=== PATIENT | male | born 1945 | race Caucasian/White ===

== ENCOUNTER 2016-09-20 11:21 | Inpatient (IN) | payer OTHER ==
[~2016-09-20] VITALS: Ht 185.4 cm; Wt 101.8 kg
[~2016-09-20 11:21] MED LIST: BENZ100C6 PO; DULO-24 PO; OXAP600T2 PO; TAMS0.4C59 PO
[2016-09-20] MEDS ORDERED: SODIUM CHLORIDE 0.9% 1000ML 1,000 ML IV STA (12:23)
[2016-09-20] MEDS ORDERED: SODIUM CHLORIDE 0.9% 1000ML 500 ML IV STA (12:23)
--- NOTE | 2016-09-20 12:31 | EMERGENCY ROOM VISIT NOTE ---
History Report prepared by Ricki: Griselda Connelly Under the Supervision of: Dr. Nick Bunn M.D. First contact with patient: 12:13 Chief Complaint: REFERRED BY DOCTOR Stated Complaint: FALLING, CONFUSION-SENT BY 'S OFFICE History of Present Illness The patient is a 70 year old male who presents to the Emergency Room with complaints of worsening debilitation over the past two weeks. Per nursing notes , the patient was referred to the emergency department by his PCP. Per the patient's , the patient was evaluated at his PCP's office and had a urinalysis done. She reports that the patient was referred to the emergency department for rule out of stroke or cardiac event. The patient reports an increased number of falls and confusion over the last two weeks. He notes that he has hit his head during the falls and additionally injured his right hand and right knee. The patient notes a change in strength. He reports that his tetanus status is up to date. The patient notes a history of Parkinson's Disease. He denies any change in medication. The patient's reports that over the last two weeks the patient has had a decrease in response, noting that at times the patient does not respond quickly, or sometimes not at all. Source of History: patient, spouse/significant other () Onset: two weeks Position: other (global) Quality: other (debilitations) Timing: worsening Associated Symptoms: + neck pain Note: Associated Symptoms: Increased falls and confusion Review of Systems See HPI for pertinent positives & negatives. A total of 10 systems reviewed and were otherwise negative. Past Medical & Surgical Medical Problems: (1) Ataxia (2) BPH w urinary obs/LUTS (3) Depression with anxiety (4) Dyslipidemia (5) GERD (gastroesophageal reflux disease) (6) History of pneumonia (7) Kidney stone (8) Malignant melanoma (9) Melanoma (10) Metabolic syndrome (11) Parkinson disease (12) Parkinsons disease (13) Pre-diabetes (14) RBBB Surgical Problems: (1) H/O cystoscopy (2) H/O hernia repair (3) H/O hernia repair (4) S/p lumbar hemilaminectomy Family History Cancer Diabetes mellitus Social History Smoking Status: Never Smoker Alcohol Use: occasionally Drug Use: none Marital Status: Housing Status: lives with significant other Current/Historical Medications Scheduled Aspirin (Aspirin Ec), 81 MG PO DAILY Budesonide (Rhinocort Aqua), 2 SPRAYS JOSE DAILY Carbidopa/Levodopa (Sinemet 25MG/100MG), 2 TAB PO TID Carbidopa/Levodopa (Sinemet 25MG/100MG), 1 TAB PO HS Clobetasol Propionate (Temovate), 1 APPLN TOP BID Clonazepam (Klonopin), 0.5 MG PO HS Donepezil Hydrochloride (Aricept), 2 TAB PO HS Finasteride (Proscar), 5 MG PO DAILY Ibuprofen (Ibuprofen), 200 MG PO HS Lisinopril (Lisinopril), 1 TAB PO DAILY Omeprazole (Prilosec), 40 MG PO DAILY Pimavanserin Tartrate (Nuplazid), 2 TAB PO DAILY Simvastatin (Zocor), 10 MG PO HS Venlafaxine Hcl (Effexor Xr), 1 CAP PO QAM Scheduled PRN Buspirone Hcl (Buspirone Hcl), 1 TAB PO BID PRN for Anxiety Allergies Coded Allergies: Oxybutynin (Verified Allergy, Unknown, HALLUCINATIONS,CHANGE IN MENTATION , 09/20/16) Tramadol (Verified Allergy, Unknown, SHORTNESS OF BREATH, 09/20/16) Physical Exam Vital Signs Date Time Temp Pulse Resp B/P Pulse Ox O2 Delivery O2 Flow Rate FiO2 09/20/16 15:10 63 14 159/96 99 09/20/16 13:21 60 09/20/16 13:17 60 16 143/86 98 09/20/16 12:20 67 09/20/16 11:38 36.4 89 20 115/76 91 Room Air Physical Exam GENERAL: Patient is in no acute distress. HEENT: No acute trauma, normocephalic atraumatic, no scalp hematoma, mucous membranes moist, no nasal congestion, no scleral icterus. NECK: No stridor, no adenopathy, no meningismus, trachea is midline. No posterior c-spine tenderness LUNGS: Clear to auscultation bilaterally, no wheeze, no rhonchi, breath sounds equal. HEART: Without murmurs gallops or rubs, regular rate and rhythm. ABDOMEN: Soft, nontender, bowel sounds positive, no hernias, no peritonitis. EXTREMITIES: Abrasions to anterior right knee without evidence of underlying fracture, abrasion to the right dorsal hand mostly in the area of the MCPs along the ulnar aspect, some edema noted, no gross deformity. NEUROLOGIC: Answers simple questions, does seem slightly confused at times, awake and alert, no focal motor deficits, no pronator drift SKIN: No rash, no jaundice, no diaphoresis. Medical Decision & Procedures ER Provider Diagnostic Interpretation: Radiology results as stated below per my review and radiologist interpretation: CT OF THE HEAD WITHOUT CONTRAST CLINICAL HISTORY: Altered mental status. Weakness. COMPARISON STUDY: Head CT May 24, 2012 and MRI of the brain May 25, 2012. CT DOSE: 614.27 mGy.cm TECHNIQUE: Helical axial images of the head were obtained without IV contrast. Automated exposure control was utilized for the study. FINDINGS: No acute intracranial hemorrhage, midline shift or mass affect is present. Ventricular system is unremarkable. Basilar cisterns are patent. There are no extra-axial collections. There are several age indeterminate lacunar infarcts within the right cerebellar hemisphere which are new since CT of May 24, 2012. There are no findings to suggest acute dural sinus thrombosis or acute territorial infarct. There is moderate mucosal thickening of the ethmoid sinuses and mild mucosal thickening of the left maxillary sinus. There is no calvarial fracture. IMPRESSION: 1. No acute intracranial hemorrhage or mass effect. 2. Several age indeterminate lacunar infarcts within the right cerebellar hemisphere which are new since head CT of May 24, 2012. Electronically signed by: Ian Fierro M.D. 09/20/2016 1:04 PM Dictated Date/Time: 09/20/2016 12:59 PM RIGHT HAND MIN 3 VIEWS ROUTINE CLINICAL HISTORY: Right hand pain following fall. COMPARISON: None FINDINGS: Alignment of the right hand is anatomic. No acute fracture is identified. There is mild to moderate arthritis within multiple articulations of the right hand. Carpal bones appear intact. IMPRESSION: No acute fracture or dislocation of the right hand. Electronically signed by: Ian Fierro M.D. 09/20/2016 1:57 PM Dictated Date/Time: 09/20/2016 1:56 PM CHEST ONE VIEW PORTABLE HISTORY: EVALUATE ALTERED MENTAL STATUS/WEAKNESS COMPARISON: None. FINDINGS: The heart is enlarged. The lungs are clear. No pleural effusions. No pneumothorax. IMPRESSION: Mild cardiomegaly. Electronically signed by: Ephraim Winter M.D. 09/20/2016 1:52 PM Dictated Date/Time: 09/20/2016 1:51 PM Laboratory Results 09/20/16 11:57 Red Blood Count 5.08, Mean Corpuscular Volume 95.1, Mean Corpuscular Hemoglobin 30.7, Mean Corpuscular Hemoglobin Concent 32.3, Mean Platelet Volume 10.1, Neutrophils (%) (Auto) 60.2, Lymphocytes (%) (Auto) 24.5, Monocytes (%) (Auto) 8.4, Eosinophils (%) (Auto) 5.4, Basophils (%) (Auto) 1.1, Neutrophils # (Auto) 4.32, Lymphocytes # (Auto) 1.76, Monocytes # (Auto) 0.60, Eosinophils # (Auto) 0.39, Basophils # (Auto) 0.08 09/20/16 11:57 Test 09/20/16 11:57 09/20/16 13:08 White Blood Count 7.18 K/uL (4.8-10.8) Red Blood Count 5.08 M/uL (4.7-6.1) Hemoglobin 15.6 g/dL (14.0-18.0) Hematocrit 48.3 % (42-52) Mean Corpuscular Volume 95.1 fL (80-100) Mean Corpuscular Hemoglobin 30.7 pg (25-34) Mean Corpuscular Hemoglobin Concent 32.3 g/dl (32-36) Platelet Count 203 K/uL (130-400) Mean Platelet Volume 10.1 fL (7.4-10.4) Neutrophils (%) (Auto) 60.2 % Lymphocytes (%) (Auto) 24.5 % Monocytes (%) (Auto) 8.4 % Eosinophils (%) (Auto) 5.4 % Basophils (%) (Auto) 1.1 % Neutrophils # (Auto) 4.32 K/uL (1.4-6.5) Lymphocytes # (Auto) 1.76 K/uL (1.2-3.4) Monocytes # (Auto) 0.60 K/uL (0.11-0.59) Eosinophils # (Auto) 0.39 K/uL (0-0.5) Basophils # (Auto) 0.08 K/uL (0-0.2) RDW Standard Deviation 42.4 fL (36.4-46.3) RDW Coefficient of Variation 12.2 % (11.5-14.5) Immature Granulocyte % (Auto) 0.4 % Immature Granulocyte # (Auto) 0.03 K/uL (0.00-0.02) Anion Gap 4.0 mmol/L (3-11) Est Creatinine Clear Calc Drug Dose 94.9 ml/min Estimated GFR () 96.7 Estimated GFR (Non- 83.5 BUN/Creatinine Ratio 26.7 (10-20) Calcium Level 8.4 mg/dl (8.5-10.1) Magnesium Level 2.5 mg/dl (1.8-2.4) Total Bilirubin 0.5 mg/dl (0.2-1) Aspartate Amino Transf (AST/SGOT) 19 U/L (15-37) Alanine Aminotransferase (ALT/SGPT) 10 U/L (12-78) Alkaline Phosphatase 90 U/L (45-117) Total Creatine Kinase 129 U/L (39-308) Troponin I < 0.015 ng/ml (0-0.045) Total Protein 7.2 gm/dl (6.4-8.2) Albumin 3.8 gm/dl (3.4-5.0) Globulin 3.4 gm/dl (2.5-4.0) Albumin/Globulin Ratio 1.1 (0.9-2) Thyroid Stimulating Hormone (TSH) 1.510 uIu/ml (0.300-4.500) Urine Color YELLOW Urine Appearance CLEAR (CLEAR) Urine pH 5.0 (4.5-7.5) Urine Specific [place] 1.020 (1.000-1.030) Urine Protein NEG (NEG) Urine Glucose (UA) NEG (NEG) Urine Ketones TRACE (NEG) Urine Occult Blood NEG (NEG) Urine Nitrite NEG (NEG) Urine Bilirubin NEG (NEG) Urine Urobilinogen NEG (NEG) Urine Leukocyte Esterase NEG (NEG) Laboratory results reviewed by me. Medications Administered Medications (Trade) Dose Ordered Sig/Rosa Route Start Time Stop Time Status Last Admin Dose Admin Sodium Chloride 500 ml @ 999 mls/hr Q31M STAT IV 09/20/16 12:23 09/20/16 12:53 DC 09/20/16 12:57 999 MLS/HR Sodium Chloride (Nss 1000ml) 1,000 ml @ 200 mls/hr Q5H STAT IV 09/20/16 12:23 09/20/16 17:22 09/20/16 12:57 200 MLS/HR ECG Indication: weakness Rate (beats per minute): 61 Rhythm: normal sinus Findings: RBBB, no acute ischemic change ED Course 1218: The patient was evaluated in room B3B. A complete history and physical exam was performed. 1223: Ordered Sodium Chloride 1000 ml @ 200 mls/hr IV, Sodium Chloride 500 ml @ 999 mls/hr IV. 1359: I reevaluated the patient and he is resting comfortably. I discussed the exam findings with him and his family and I discussed the treatment plan. They verbalized complete understanding and agreement. The patient will be evaluated for further treatment. 1406: I discussed the patients case with Kristopher Navarro PA-C. She is going to evaluate the patient for further treatment. Medical Decision The patient is a 70 year old male who presents to the ED with complaints of worsening debilitation. Differential diagnoses considered include stroke, medication reaction, worsening Parkinson's disease, electrolyte imbalance, anemia, [place], UTI. There is no leukocytosis or concerning anemia. No significant electrolyte abnormality, kidney failure or hepatitis. The patient appears to be in a euthyroid state. Chest x-ray does not show pneumonia or CHF. Right hand film shows no obvious fracture. Brain CT shows no acute bleed or mass effect-small areas of infarct were noted but these were thought old although they were new as compared to a CT from a few years ago. EKG shows a normal sinus rhythm, no acute ischemia. Cardiac enzyme testing 1 is not consistent with acute cardiac injury. Urinalysis does not show infection. The patient received IV saline, I did talk with him and his family. Given the frequent falls, given the confusion, given the findings on CT indicating CVA, admission/observation was felt warranted. Further workup for stroke is indicated. Further workup for the confusion and falling is indicated. I did contact case management. The on-call hospitalist was consulted. Medication Reconciliation: I attest that I have personally reviewed the patient' s current medication list. Blood Pressure Screening: Patient was found to have an elevated blood pressure and was referred to their primary doctor for recheck and further treatment. Consults Time Called: 1400 Consulting Physician: Kristopher Navarro PA-C Returned Call: 1406 I discussed the patients case with Kristopher Navarro PA-C. She is going to evaluate the patient for further treatment. Impression Primary Impression: Change in mental status Additional Impressions: Confusion CVA (cerebral vascular accident) Scribe Attestation The scribe's documentation has been prepared under my direction and personally reviewed by me in its entirety. I confirm that the note above accurately reflects all work, treatment, procedures, and medical decision making performed by me. Departure Information Dispostion Being Evaluated By Hospitalist Referrals Jae Andrade MD (PCP) Stroke History Stroke t-PA Criteria Reviewed Does NOT meet criteria for t-PA Reason t-PA Not Given Treatment not indicated Problem Qualifiers
[2016-09-20 12:37] LABS: BASO % 1.1 %; BASO ABS # 0.08 K/uL (0-0.2); COMPLETE YES; EOS % 5.4 %; HEMATOCRIT 48.3 % (42-52); IG% 0.4 %; LYMPH % 24.5 %; LYMPH ABS # 1.76 K/uL (1.2-3.4); MEAN CELL VOLUME 95.1 fL (80-100); MEAN CORPUSCULAR HEMOGLOBIN 30.7 pg (25-34); MEAN CORPUSCULAR HGB CONC 32.3 g/dl (32-36); MEAN PLATELET VOLUME 10.1 fL (7.4-10.4); MONO % 8.4 %; NEUT % 60.2 %; PLATELET COUNT 203 K/uL (130-400); RED BLOOD COUNT 5.08 M/uL (4.7-6.1); WHITE BLOOD COUNT 7.18 K/uL (4.8-10.8)
[2016-09-20 12:46] LABS: ALT/SGPT 10 U/L (12-78); AST/SGOT 19 U/L (15-37); BLOOD UREA NITROGEN 25 mg/dl (7-18); BUN/CREATININE RATIO 26.7 (10-20); CALCIUM 8.4 mg/dl (8.5-10.1); CARBON DIOXIDE 33 mmol/L (21-32); CHLORIDE 107 mmol/L (98-107); CREATININE 0.93 mg/dl (0.60-1.40); GLUCOSE 90 mg/dl (70-99); MAGNESIUM 2.5 mg/dl (1.8-2.4); SODIUM 144 mmol/L (136-145)
[2016-09-20 12:57] LABS: ALB/GLOB RATIO 1.1 (0.9-2); ALKALINE PHOSPHATASE 90 U/L (45-117)
--- NOTE | 2016-09-20 13:05 | DIAGNOSTIC IMAGING REPORT ---
CT OF THE HEAD WITHOUT CONTRAST CLINICAL HISTORY: Altered mental status. Weakness. COMPARISON STUDY: Head CT May 24, 2012 and MRI of the brain May 25, 2012. CT DOSE: 614.27 mGy.cm TECHNIQUE: Helical axial images of the head were obtained without IV contrast. Automated exposure control was utilized for the study. FINDINGS: No acute intracranial hemorrhage, midline shift or mass affect is present. Ventricular system is unremarkable. Basilar cisterns are patent. There are no extra-axial collections. There are several age indeterminate lacunar infarcts within the right cerebellar hemisphere which are new since CT of May 24, 2012. There are no findings to suggest acute dural sinus thrombosis or acute territorial infarct. There is moderate mucosal thickening of the ethmoid sinuses and mild mucosal thickening of the left maxillary sinus. There is no calvarial fracture. IMPRESSION: 1. No acute intracranial hemorrhage or mass effect. 2. Several age indeterminate lacunar infarcts within the right cerebellar hemisphere which are new since head CT of May 24, 2012. Electronically signed by: Ian Fierro M.D. 09/20/2016 1:04 PM Dictated Date/Time: 09/20/2016 12:59 PM
[2016-09-20 13:38] LABS: URINE APPEARANCE CLEAR (CLEAR); URINE BILIRUBIN NEG (NEG); URINE COLOR YELLOW; URINE NITRITE NEG (NEG); UROBILINOGEN NEG (NEG); ZZUR CULT IF INDIC CLEAN CATCH NO
[2016-09-20 13:42] LABS: MANUAL MICROSCOPIC REQUIRED? NO; REVIEW REQ? NO
[2016-09-20] MEDS ORDERED: CLOB-77 TOP (13:44)
[2016-09-20] MEDS ORDERED: RHNAQIN NAE (13:48)
[2016-09-20] MEDS ORDERED: CLR10 PO (13:49)
--- NOTE | 2016-09-20 13:53 | DIAGNOSTIC IMAGING REPORT ---
CHEST ONE VIEW PORTABLE HISTORY: EVALUATE ALTERED MENTAL STATUS/WEAKNESS COMPARISON: None. FINDINGS: The heart is enlarged. The lungs are clear. No pleural effusions. No pneumothorax. IMPRESSION: Mild cardiomegaly. Electronically signed by: Ephraim Winter M.D. 09/20/2016 1:52 PM Dictated Date/Time: 09/20/2016 1:51 PM
--- NOTE | 2016-09-20 13:58 | DIAGNOSTIC IMAGING REPORT ---
RIGHT HAND MIN 3 VIEWS ROUTINE CLINICAL HISTORY: Right hand pain following fall. COMPARISON: None FINDINGS: Alignment of the right hand is anatomic. No acute fracture is identified. There is mild to moderate arthritis within multiple articulations of the right hand. Carpal bones appear intact. IMPRESSION: No acute fracture or dislocation of the right hand. Electronically signed by: Ian Fierro M.D. 09/20/2016 1:57 PM Dictated Date/Time: 09/20/2016 1:56 PM
[2016-09-20] MEDS ORDERED: ONDANSETRON INJ 2 MG/ML 2 ML VIAL IV PRN (15:15)
[2016-09-20] MEDS ORDERED: ACETAMINOPHEN 325 MG TAB PO PRN (15:15)
[2016-09-20] MEDS ORDERED: PHARMACIST DISCHARGE MED REC CONSULT PRN (15:15)
--- NOTE | 2016-09-20 16:00 | History and Physical ---
History & Physical Date & Time of Service: September 20, 2016 at 15:15 Chief Complaint: Falling, Confusion-Sent By 's Office Primary Care Physician: Jae Andrade MD History of Present Illness Source: patient, family (daughter and at bedside), clinic records This is a 70 year old male with PMH of dementia, Parkinson's disease, prediabetes, HTN, HL, and other problems listed below who is brought to the ED by his family for balance difficulty and altered mental status. Hx unobtainable from the patient due to AMS. Per , patient was at baseline until 2 weeks ago when he developed increased balance difficulty, worsening word finding difficulty and nonsensical speech. Has shuffling gait at baseline, supposed to use walker but refuses. 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 Second fall was witnessed by in bathroom, was turning, crossed one leg over the other, tripped, went down on left side. Third fall was 2 days ago, unwitnessed, patient had wandered to neighbor's driveway and was found down on his side by a passerby. No known head trauma. Has not complained of EASON or muscle/ joint pain. Has abrasions on right hand and right knee. Patient can state his name but otherwise not able to answer orientation questions appropriately. Family states at baseline he has intermittent word finding difficulty and nonsensical speech but for past 2 weeks is worse. Pt has chronic tremor and masked facies. Has urinary frequency and incontinence which is worse than baseline for a few weeks. Family denies fever, chills, cough, URI symptoms, slurred speech, unilateral facial droop, swallowing difficulty, focal weakness or numbness, LOC , complaints of dizziness, complaints of chest pain, SOB, abdominal pain, N/V, diarrhea. No recent hallucinations. Eating normally and taking in meds. Last medication change was Sinemet dose increase late July 2016. No hx TIA or CVA. Past Medical/Surgical History Medical Problems: (1) BPH w urinary obs/LUTS Status: Chronic (2) Depression with anxiety Status: Chronic (3) Dyslipidemia Status: Chronic (4) GERD (gastroesophageal reflux disease) Status: Chronic (5) History of pneumonia Status: Chronic (6) Kidney stone Status: Resolved (7) Malignant melanoma Permanent Comment: left ear, s/p surgery Status: Chronic (8) Melanoma Status: Resolved (9) Metabolic syndrome Status: Chronic (10) Parkinson disease Status: Chronic (11) Parkinsons disease Status: Chronic (12) Pre-diabetes Permanent Comment: diet controlled Status: Chronic (13) RBBB Status: Chronic Surgical Problems: (1) H/O cystoscopy Status: Chronic (2) H/O hernia repair Status: Resolved (3) H/O hernia repair Status: Chronic (4) S/p lumbar hemilaminectomy Status: Chronic Family History Cancer Diabetes mellitus Social History Smoking Status: Former Smoker (former once a week cigar smoker) Alcohol Use: none Marital Status: Housing status: lives with significant other Immunizations History of Influenza Vaccine: Yes History of Tetanus Vaccine?: Unknown History of Pneumococcal: Yes History of Hepatitis B Vaccine: Unknown Multi-Drug Resistant Organisms History of MDRO: No Allergies Coded Allergies: Oxybutynin (Verified Allergy, Unknown, HALLUCINATIONS,CHANGE IN MENTATION , 09/20/16) Tramadol (Verified Allergy, Unknown, SHORTNESS OF BREATH, 09/20/16) Home Medications Scheduled Aspirin (Aspirin Ec), 81 MG PO DAILY Budesonide (Rhinocort Aqua), 2 SPRAYS JOSE DAILY Carbidopa/Levodopa (Sinemet 25MG/100MG), 2 TAB PO TID Carbidopa/Levodopa (Sinemet 25MG/100MG), 1 TAB PO HS Clobetasol Propionate (Temovate), 1 APPLN TOP BID Clonazepam (Klonopin), 0.5 MG PO HS Donepezil Hydrochloride (Aricept), 2 TAB PO HS Finasteride (Proscar), 5 MG PO DAILY Ibuprofen (Ibuprofen), 200 MG PO HS Lisinopril (Lisinopril), 1 TAB PO DAILY Omeprazole (Prilosec), 40 MG PO DAILY Pimavanserin Tartrate (Nuplazid), 2 TAB PO DAILY Simvastatin (Zocor), 10 MG PO HS Venlafaxine Hcl (Effexor Xr), 1 CAP PO QAM Scheduled PRN Buspirone Hcl (Buspirone Hcl), 1 TAB PO BID PRN for Anxiety Review of Systems Full ROS could not be obtained from patient due to AMS. Physical Exam Vital Signs Date Time Temp Pulse Resp B/P Pulse Ox O2 Delivery O2 Flow Rate FiO2 5/31/17 15:10 63 14 159/96 99 09/20/16 13:21 60 09/20/16 13:17 60 16 143/86 98 09/20/16 12:20 67 09/20/16 11:38 36.4 89 20 115/76 91 Room Air General Appearance: + pertinent finding Head: normocephalic, atraumatic Eyes: normal inspection, PERRL, EOMI, sclerae normal ENT: hearing grossly normal, pharynx normal Neck: supple, trachea midline Respiratory/Chest: lungs clear, normal breath sounds, no respiratory distress, no accessory muscle use Cardiovascular: regular rate, rhythm, no murmur Abdomen/GI: normal bowel sounds, non tender, soft Extremities/Musculoskelatal: no calf tenderness, no pedal edema, + pertinent finding (left hand contracted) Neurologic/Psych: alert, normal mood/affect, + pertinent finding (able to state his name, unable to name family members at bedside, disoriented to date ( 1958), unable to answer location, unable to describe recent events. answers most questions nonsensically. some resting tremor on the right arm. follows commands slowly with repeated prompting. masked facies but no unilateral facial droop. even smile and eyebrow raise. no dysarthria. no focal motor deficit of extremities. slowly able to do finger to nose testing. ) Skin: normal color, warm/dry, + pertinent finding (right hand abrasions) Diagnostics Laboratory Results Results Past 24 Hours Test 09/20/16 11:57 09/20/16 13:08 09/20/16 15:08 Range/Units White Blood Count 7.18 4.8-10.8 K/uL Red Blood Count 5.08 4.7-6.1 M/uL Hemoglobin 15.6 14.0-18.0 g/dL Hematocrit 48.3 42-52 % Mean Corpuscular Volume 95.1 80-100 fL Mean Corpuscular Hemoglobin 30.7 25-34 pg Mean Corpuscular Hemoglobin Concent 32.3 32-36 g/dl Platelet Count 203 130-400 K/uL Mean Platelet Volume 10.1 7.4-10.4 fL Neutrophils (%) (Auto) 60.2 % Lymphocytes (%) (Auto) 24.5 % Monocytes (%) (Auto) 8.4 % Eosinophils (%) (Auto) 5.4 % Basophils (%) (Auto) 1.1 % Neutrophils # (Auto) 4.32 1.4-6.5 K/uL Lymphocytes # (Auto) 1.76 1.2-3.4 K/uL Monocytes # (Auto) 0.60 0.11-0.59 K/uL Eosinophils # (Auto) 0.39 0-0.5 K/uL Basophils # (Auto) 0.08 0-0.2 K/uL RDW Standard Deviation 42.4 36.4-46.3 fL RDW Coefficient of Variation 12.2 11.5-14.5 % Immature Granulocyte % (Auto) 0.4 % Immature Granulocyte # (Auto) 0.03 0.00-0.02 K/uL Sodium Level 144 136-145 mmol/L Potassium Level 4.0 3.5-5.1 mmol/L Chloride Level 107 98-107 mmol/L Carbon Dioxide Level 33 21-32 mmol/L Anion Gap 4.0 3-11 mmol/L Blood Urea Nitrogen 25 7-18 mg/dl Creatinine 0.93 0.60-1.40 mg/dl Est Creatinine Clear Calc Drug Dose 94.9 ml/min Estimated GFR () 96.7 Estimated GFR (Non- 83.5 BUN/Creatinine Ratio 26.7 10-20 Random Glucose 90 70-99 mg/dl Calcium Level 8.4 8.5-10.1 mg/dl Magnesium Level 2.5 1.8-2.4 mg/dl Total Bilirubin 0.5 0.2-1 mg/dl Aspartate Amino Transf (AST/SGOT) 19 15-37 U/L Alanine Aminotransferase (ALT/SGPT) 10 12-78 U/L Alkaline Phosphatase 90 45-117 U/L Total Creatine Kinase 129 39-308 U/L Troponin I < 0.015 0-0.045 ng/ml Total Protein 7.2 6.4-8.2 gm/dl Albumin 3.8 3.4-5.0 gm/dl Globulin 3.4 2.5-4.0 gm/dl Albumin/Globulin Ratio 1.1 0.9-2 Thyroid Stimulating Hormone (TSH) 1.510 0.300-4.500 uIu/ml Urine Color YELLOW Urine Appearance CLEAR CLEAR Urine pH 5.0 4.5-7.5 Urine Specific [place] 1.020 1.000-1.030 Urine Protein NEG NEG Urine Glucose (UA) NEG NEG Urine Ketones TRACE NEG Urine Occult Blood NEG NEG Urine Nitrite NEG NEG Urine Bilirubin NEG NEG Urine Urobilinogen NEG NEG Urine Leukocyte Esterase NEG NEG Diagnostic Radiology CT OF THE HEAD WITHOUT CONTRAST CLINICAL HISTORY: Altered mental status. Weakness. COMPARISON STUDY: Head CT May 24, 2012 and MRI of the brain May 25, 2012. CT DOSE: 614.27 mGy.cm TECHNIQUE: Helical axial images of the head were obtained without IV contrast. Automated exposure control was utilized for the study. FINDINGS: No acute intracranial hemorrhage, midline shift or mass affect is present. Ventricular system is unremarkable. Basilar cisterns are patent. There are no extra-axial collections. There are several age indeterminate lacunar infarcts within the right cerebellar hemisphere which are new since CT of May 24, 2012. There are no findings to suggest acute dural sinus thrombosis or acute territorial infarct. There is moderate mucosal thickening of the ethmoid sinuses and mild mucosal thickening of the left maxillary sinus. There is no calvarial fracture. IMPRESSION: 1. No acute intracranial hemorrhage or mass effect. 2. Several age indeterminate lacunar infarcts within the right cerebellar hemisphere which are new since head CT of May 24, 2012. RIGHT HAND MIN 3 VIEWS ROUTINE CLINICAL HISTORY: Right hand pain following fall. COMPARISON: None FINDINGS: Alignment of the right hand is anatomic. No acute fracture is identified. There is mild to moderate arthritis within multiple articulations of the right hand. Carpal bones appear intact. IMPRESSION: No acute fracture or dislocation of the right hand. CHEST ONE VIEW PORTABLE HISTORY: EVALUATE ALTERED MENTAL STATUS/WEAKNESS COMPARISON: None. FINDINGS: The heart is enlarged. The lungs are clear. No pleural effusions. No pneumothorax. IMPRESSION: Mild cardiomegaly. EKG NSR, RBBB, T wave abnormality, consider inferior ischemia, when compared to prior EKG no significant change was found as per cardiology read Impression Assessment and Plan ALTERED MENTAL STATUS/ BALANCE DIFFICULTY Rule out acute CVA; risk factors- HTN, HL, prediabetes Onset 2 weeks ago; does not meet criteria for tPA No source of infection identified- CXR- no infiltrate, UA does not appear infected CT head- no acute intracranial hemorrhage or mass effect, several age indeterminate lacunar infarcts within the right cerebellar hemisphere which are new since head CT of May 24, 2012. Check MRI brain, MRA head and neck, echo with bubble study Monitor in telemetry to r/o arrhythmia Continue aspirin, statin Add Plavix Neuro checks PT, OT, speech evaluations Consult neurology; case discussed w/ Dr. Guerra; appreciate input PARKINSON'S DISEASE Continue Sinemet Follows with Dr. Guerra; neuro consulted HX OF PSYCHOSIS Continue Nuplazid Follows with [facility] for mental health HYPERTENSION BP is stable Continue lisinopril PREDIABETES Diet controlled per records Diabetic diet Check A1c DEMENTIA Continue Aricept DEPRESSION/ ANXIETY Continue Klonopin, Buspar, Effexor DYSLIPIDEMIA Continue statin BPH Continue finasteride DVT PROPHYLAXIS Lovenox SQ CODE STATUS DNR per my discussion with the patient's . DISPOSITION Lives with Consult delinquency prevention social worker for discharge planning Follows with Dr. Andrade for primary care Patient seen in collaboration with Dr. Rodríguez. Please see her addendum. ATTENDING ADDENDUM: I have seen and examined the patient and agree with the assessment and plan above. However, I would add R hand trauma with possible superficial cellulitis as an additional problem. I tried to contact his by phone tonight to obtain a better history but the number was disconnected. There are abrasions on the hand and a fresh one on the R knee indicating a recent trauma. There is redness and swelling on the ulnar side of the hand including the 4th and 5th metacarpals and the MCP joints. The patient is able to open and close his fist and denies any pain. The appearance is consistent with a nonpurulent cellulitis with with erythema so will cover for strep with Cefazolin IV. Also consulted Ortho to evaluate. He is not confused or delirious; baseline MS is difficult to appreciate. There is alot of cogwheel rigidity appreciated on exam. This appears to be consistent with a worsening of his PD as a possible cause of the MS changes and ambulation difficulty. Cont workup and Neuro eval as above. Marcos, DO Level of Care Telemetry Resuscitation Status DO NOT RESUSCITATE VTE Prophylaxis VTE Risk Assessment Done? Y/N: Yes Risk Level: Moderate Given or contraindicated: Enoxaparin (Lovenox)SQ
[2016-09-20 16:05] VITALS: BP 160/97; PULSE 62; TEMP 36.5; O2SAT 96; Ht 185.4 cm; Wt 101.8 kg
[2016-09-20] MEDS ORDERED: CLOPIDOGREL BISULFATE 75 MG TAB PO ONE (17:00)
[2016-09-20 17:16] LABS: PROTHROMBIN TIME (PATIENT) 11.2 SECONDS (9.0-12.0)
[2016-09-20] MEDS: ENOXAPARIN 40 MG/0.4 ML SYR SQ SCH (18:42)
[2016-09-20 19:53] VITALS: BP 174/96; PULSE 62; TEMP 36.5; O2SAT 97
[2016-09-20 20:00] VITALS: O2SAT 97
[2016-09-20] MEDS: CARBIDOPA/LEVODOPA 25/100MG TAB PO SCH ×2 (20:38)
[2016-09-20] MEDS: CLONAZEPAM 0.5 MG TAB PO SCH (20:43)
[2016-09-20] MEDS ORDERED: CLOBETASOL PROPIONATE 0.05% EXT SCH (21:00)
[2016-09-20] MEDS: CEFAZOLIN IV 1,000 MG in DEXTROSE 5% 50ML 50 ML IV SCH (21:13)
[2016-09-20 23:29] VITALS: BP 167/85; PULSE 66; TEMP 36.8; O2SAT 95
[2016-09-21] VITALS (8 sets, daily range): BP systolic 106–172; BP diastolic 61–94; PULSE 62–84; TEMP 36.2–36.8; O2SAT 93–97
[2016-09-21] MEDS: CEFAZOLIN IV 1,000 MG in DEXTROSE 5% 50ML 50 ML IV SCH ×3 (04:58→20:17)
[2016-09-21 04:59] LABS: ESTIMATED AVERAGE GLUCOSE 134 mg/dl; HA1C FLAG Normal (Normal)
[2016-09-21 07:22] LABS: BASO % 0.9 %; BASO ABS # 0.07 K/uL (0-0.2); COMPLETE YES; EOS % 4.8 %; HEMATOCRIT 46.6 % (42-52); IG% 0.3 %; LYMPH % 24.3 %; LYMPH ABS # 1.84 K/uL (1.2-3.4); MEAN CELL VOLUME 94.9 fL (80-100); MEAN CORPUSCULAR HEMOGLOBIN 32.2 pg (25-34); MEAN CORPUSCULAR HGB CONC 33.9 g/dl (32-36); MEAN PLATELET VOLUME 9.9 fL (7.4-10.4); MONO % 8.6 %; NEUT % 61.1 %; PLATELET COUNT 179 K/uL (130-400); RED BLOOD COUNT 4.91 M/uL (4.7-6.1); WHITE BLOOD COUNT 7.57 K/uL (4.8-10.8)
[2016-09-21 08:00] LABS: BUN/CREATININE RATIO 25.9 (10-20); CALCIUM 8.4 mg/dl (8.5-10.1); CREATININE 0.89 mg/dl (0.60-1.40); POTASSIUM 3.8 mmol/L (3.5-5.1)
[2016-09-21 08:03] LABS: C-REACTIVE PROTEIN 0.42 mg/dl (0-0.29); CHOLESTEROL/HDL RATIO 2.7
[2016-09-21] MEDS: [UNRECOGNIZED DRUG - REMARK] SCH ×4 (08:17→23:05)
[2016-09-21] MEDS: BUDESONIDE AQ (RHINOCORT AQ) NASAL SPRAY 32 MCG NAE SCH (08:18)
[2016-09-21] MEDS: CLOPIDOGREL BISULFATE 75 MG TAB PO SCH (08:18)
[2016-09-21] MEDS: VENLAFAXINE HCL XR 150 MG CAPXR PO SCH (08:18)
[2016-09-21] MEDS: ASPIRIN 81 MG ECTAB PO SCH (08:18)
[2016-09-21] MEDS: PANTOprazole SOD 40 MG TAB PO SCH (08:19)
[2016-09-21] MEDS: FINASTERIDE 5 MG TAB PO SCH (08:19)
[2016-09-21] MEDS: LISINOPRIL 2.5 MG TAB PO SCH (08:20)
[2016-09-21] MEDS: CARBIDOPA/LEVODOPA 25/100MG TAB PO SCH ×3 (08:20→20:00)
--- NOTE | 2016-09-21 08:26 | CONSULTATION REPORT ---
DATE OF CONSULTATION: 09/21/2016 DATE OF CONSULTATION: 09/21/2016. HISTORY OF PRESENT ILLNESS: The patient is a 70-year-old male with a history of dementia, Parkinson's disease, and other medical conditions as listed in the H&P who has suffered 3 falls recently. After the last fall, he was found outside by passerby, brought to the ED for evaluation. Per the family he is having increasing difficulty with balance and ambulation as well as altered mental status. He is found to have pain, swelling, and abrasions about the right hand. X-rays of the hand were read as negative and orthopedics consult was asked for. Currently, the patient is resting in his bed with his and daughter present. They confirmed recent falls with several of them causing him to land on his right side. He is lying in bed, appears comfortable. He is minimally responsive and is very slow to answer questions. He has multiple abrasions over the dorsum of the right ulnar-sided hand in the region of the 3rd, 4th and 5th fingers as well as dorsal 3rd, 4th and 5th metacarpal hand region. At my encouragement, he is able to make a fist, extend the fingers. He does not have any localized tenderness. There is some mild swelling, minimal erythema, no active drainage. X-RAYS: X-rays were reviewed and are negative for acute fracture. ASSESSMENT: Right hand contusion with abrasions and mild cellulitis, improving on IV antibiotics. PLAN: The above discussed with the patient and his family. At this point, will just continue to monitor this. It has appeared to improve with the IV antibiotics. He can continue the antibiotics and again will monitor him periodically to ensure progression.
[2016-09-21] MEDS ORDERED: PERFLUTREN LIPID MICROSPHERE (DEFINITY) IV ONE (11:08)
--- NOTE | 2016-09-21 12:21 | DIAGNOSTIC IMAGING REPORT ---
ORBIT RADIOGRAPHS 3 VIEWS HISTORY: pre-MRI screening. COMPARISON: Head CT September 20, 2016. FINDINGS: There are no radiopaque foreign bodies identified within the orbits. IMPRESSION: No radiopaque foreign bodies identified within the orbits. Electronically signed by: Ian Fierro M.D. 09/21/2016 12:20 PM Dictated Date/Time: 09/21/2016 12:16 PM
[2016-09-21] MEDS ORDERED: GADAVIST IV PRN (14:00)
--- NOTE | 2016-09-21 14:08 | DIAGNOSTIC IMAGING REPORT ---
MR ANGIOGRAPHY OF THE [place] NO CONTRAST CLINICAL HISTORY: Stroke, ataxia, change in mental status. COMPARISON STUDY: None. A 3-D [id number] MR angiographic sequence of the [place] was performed. Both the source and projection images were reviewed. There are no lesion suspicious for aneurysm. There is a moderate stenosis of the distal right vertebral artery. There are no lesion suspicious for aneurysm. There is no evidence of intracranial branch occlusion. IMPRESSION: 1. No evidence of aneurysm 2. Moderate stenosis of the distal right vertebral artery Electronically signed by: Yanick Kennedy M.D. 09/21/2016 2:06 PM Dictated Date/Time: 09/21/2016 2:04 PM
--- NOTE | 2016-09-21 14:18 | DIAGNOSTIC IMAGING REPORT ---
MRI OF THE BRAIN WITHOUT IV CONTRAST CLINICAL HISTORY: Generalized weakness. Change in mental status. COMPARISON STUDY: CT of the brain dated 09/20/2016. TECHNIQUE: MRI of the brain was performed utilizing various T1 and T2-weighted sequences in the axial, sagittal, and coronal planes. IV contrast was not administered for this examination. FINDINGS: Brain parenchyma: There are age-related involutional changes noting mild patchy subcortical and periventricular microangiopathic disease. Small chronic lacunar infarcts are identified in the right cerebellar hemisphere and the dariusz. There is no hemorrhage or mass effect. There is no restricted diffusion to suggest acute ischemia. [place]-white matter differentiation is preserved. No extra-axial fluid collection is seen. The cerebellar tonsils are normal in configuration. Ventricles, sulci, and cisterns: Prominent secondary to involutional change. Pituitary and sella: Unremarkable. Intracranial vasculature: Normal flow voids are maintained at the skull base. Orbits: The bony orbits are grossly intact. Orbital contents are normal in appearance. Sinuses and mastoids: There is mild mucosal thickening within the left maxillary antrum. Moderate mucosal thickening is seen within the frontal and ethmoid sinuses. Trace mucosal thickening is seen in the sphenoid sinuses. The mastoid air cells are clear. Calvarium: Unremarkable. Cervical cord: Partially visualized cervical spinal cord is normal in morphology and signal intensity. IMPRESSION: 1. No acute intracranial abnormality. 2. Paranasal sinus disease as above. Electronically signed by: Nick Galvin M.D. 09/21/2016 2:17 PM Dictated Date/Time: 09/21/2016 2:14 PM
--- NOTE | 2016-09-21 14:34 | DIAGNOSTIC IMAGING REPORT ---
MR ANGIOGRAM OF THE NECK COMBO CLINICAL HISTORY: Change in mental status. COMPARISON STUDY: No priors. TECHNIQUE: Axial 2-D [id number] MR angiography of the neck is performed. Subsequently, following the IV administration of 10 cc of Gadavist coronal MR angiogram of the neck was performed to corroborate the findings. 3-D reformats are created and assessed. All measurements were calculated based on NASCET criteria. FINDINGS: Visualized portions of the thoracic aorta are normal in caliber. The arch demonstrates standard 3-vessel anatomy. The subclavian arteries are widely patent bilaterally. The right common carotid artery is widely patent, as are the right internal and external carotid arteries. The left common carotid artery is widely patent, as are the left internal and external carotid arteries. The vertebral arteries are widely patent and codominant. The partially visualized intracranial vessels at the skull base are normal in appearance. IMPRESSION: Unremarkable MR angiogram of the neck. Electronically signed by: Nick Galvin M.D. 09/21/2016 2:32 PM Dictated Date/Time: 09/21/2016 2:30 PM
--- NOTE | 2016-09-21 16:55 | ECHOCARDIOGRAM REPORT ---
*NOTICE TO RECEIVING [employer] This information is strictly Confidential and protected under [place] law. [place] law prohibits you from making any further disclosure of this information unless further disclosure is expressly permitted by the written consent of the person to whom it pertains or is authorized by law. A general authorization for the release of medical or other information is not sufficient for this purpose. Hospital accepts no responsibility if the information is made available to any other person, INCLUDING THE PATIENT. Interpretation Summary * Name: GEORGETTE NEVILLE Study Date: 09/21/2016 10:43 AM BP: 141/84 mmHg * Patient Location: C.2T\S\S240\S\2 HR: 71 * : 1945 (M/d/yyy) Gender: Male Height: 58 in * Age: 70 yrs Ethnicity: [place] Weight: 229 lb * Ordering Physician: Julia Hemphill * Referring Physician: Self, Referred * Performed By: Vania Maciel, [facility] * * Reason For Study: ? STROKE * BSA: 1.9 m2 * The study was technically limited. * The study was technically difficult. * Grossly normal valvular structure and function. * -- Conclusions -- * The study was technically limited. * The study was technically difficult. * The left atrium is not well visualized. * Right atrium not well visualized. * No ASD detected; PFO is not assessed. * There is moderate concentric left ventricular hypertrophy. * Ejection Fraction = 50-55%. * The right ventricular systolic function is normal. * Grossly normal valvular structure and function. Procedure Details * A complete two-dimensional transthoracic echocardiogram was performed (2D, M-mode, Doppler and color flow Doppler). * The study was technically difficult. * There were technical limitations due to patient'spoor positioning * A contrast injection of Definity was performed to improve assessment of LV function. * Contrast was injected into an intravenous site in the left arm. * One vial of Definity ultrasound contrast was diluted in normal saline to a total volume of 10 ml. A total of '1' ml of solution was administered during imaging. * Lot # [id number] of Definity utilized for procedure. * Expiration date NOV 07. * The attending nurse who injected the contrast agent was SHANTHI WETZEL CPL, RN. Left Ventricle * The left ventricle is normal in size. * There is moderate concentric left ventricular hypertrophy. * Ejection Fraction = 50-55%. * The left ventricular wall motion is normal. Right Ventricle * The right ventricle is grossly normal size. * The right ventricular systolic function is normal. Atria * The left atrium is not well visualized. * Right atrium not well visualized. * No ASD detected; PFO is not assessed. Mitral Valve * The mitral valve is grossly normal. * Significant mitral regurgitation is absent. Tricuspid Valve * The tricuspid valve anatomy is normal. * Significant tricuspid regurgitation is absent. Aortic Valve * The aortic valve is tricuspid. The leaflet thickness if normal. There is no aortic stenosis, and no significant insufficiency. * The aortic valve opens well. * There is no significant aortic regurgitation. Pulmonic Valve * The pulmonic valve is not well visualized. * There is no significant pulmonary regurgitation. Great Vessels * The aortic root and proximal ascending aorta are normal sized. Pericardium/Pleural * There is no pericardial effusion. MMode 2D Measurements and Calculations IVSd 1.3 cm IVSs 1.6 cm LVIDd 4.4 cm LVIDs 3.3 cm LVPWd 1.3 cm LVPWs 1.3 cm IVS/LVPW 0.99 FS 25.5 % EDV(Teich) 90.0 ml ESV(Teich) 44.5 ml EF(Teich) 50.5 % EDV(cubed) 88.1 ml ESV(cubed) 36.4 ml EF(cubed) 58.7 % % IVS thick 19.5 % % LVPW thick -0.83 % LV mass(C)d 223.4 grams LV mass(C)dI 115.8 grams/m\S\2 LV mass(C)s 168.1 grams LV mass(C)sI 87.1 grams/m\S\2 SV(Teich) 45.5 ml SI(Teich) 23.6 ml/m\S\2 SV(cubed) 51.7 ml SI(cubed) 26.8 ml/m\S\2 Ao root diam 3.9 cm Ao root area 11.9 cm\S\2 LVOT diam 2.0 cm LVOT area 3.0 cm\S\2 LVAd ap4 36.0 cm\S\2 LVLd ap4 8.4 cm EDV(MOD-sp4) 124.8 ml EDV(sp4-el) 130.2 ml LVAs ap4 24.2 cm\S\2 LVLs ap4 7.5 cm ESV(MOD-sp4) 67.4 ml ESV(sp4-el) 66.2 ml EF(MOD-sp4) 46.0 % EF(sp4-el) 49.2 % LVAd ap2 26.0 cm\S\2 LVLd ap2 7.3 cm EDV(MOD-sp2) 79.5 ml EDV(sp2-el) 78.5 ml LVAs ap2 17.8 cm\S\2 LVLs ap2 6.6 cm ESV(MOD-sp2) 39.0 ml ESV(sp2-el) 40.6 ml EF(MOD-sp2) 50.9 % EF(sp2-el) 48.2 % LVLd %diff -15.08 % EDV(MOD-bp) 104.4 ml LVLs %diff -12.61 % ESV(MOD-bp) 52.8 ml EF(MOD-bp) 49.4 % SV(MOD-sp4) 57.4 ml SI(MOD-sp4) 29.8 ml/m\S\2 SV(MOD-sp2) 40.5 ml SI(MOD-sp2) 21.0 ml/m\S\2 SV(MOD-bp) 51.6 ml SI(MOD-bp) 26.7 ml/m\S\2 SV(sp4-el) 64.0 ml SI(sp4-el) 33.2 ml/m\S\2 SV(sp2-el) 37.8 ml SI(sp2-el) 19.6 ml/m\S\2 Doppler Measurements and Calculations MV E max anai 53.3 cm/sec MV A max anai 61.3 cm/sec MV E/A 0.87 MV P1/2t max anai 60.4 cm/sec MV P1/2t 132.9 msec MVA(P1/2t) 1.7 cm\S\2 MV dec slope 133.1 cm/sec\S\2 MV dec time 0.35 sec Ao V2 max 110.4 cm/sec Ao max PG 4.9 mmHg Ao max PG (full) 1.5 mmHg ADDISON(V,A) 2.5 cm\S\2 ADDISON(V,D) 2.5 cm\S\2 LV V1 max PG 3.4 mmHg LV V1 max 91.9 cm/sec PA V2 max 60.0 cm/sec PA max PG 1.4 mmHg
[2016-09-21] MEDS: ENOXAPARIN 40 MG/0.4 ML SYR SQ SCH (18:13)
--- NOTE | 2016-09-21 19:00 | CONSULTATION REPORT ---
DATE OF CONSULTATION: 09/21/2016 CONSULTATION FOR: Dr. Pena. HISTORY OF PRESENT ILLNESS: Oral is 70 years old and is known to Dr. Jae Andrade and I have seen him now for probably 7 years regarding what initially was a unilateral tremor, predominant left-sided Parkinson syndrome but then over the ensuing years, became more generalized, became associated with dementia with behavioral issues, psychosis, hallucinations and over this interval it has been very difficult to get a balance between controlling his cognition and hallucinations and his motor skills. He has done well recently with addition of a new agent Nuplazid 15 mg a day and alot of his psychotic issues have virtually vanished and his behavior has improved. We have had him on Aricept for some time, acting on assumption that there may be elements of Lewy body dementia working here, but the distinction between Parkinson's with dementia and Lewy body disease is very difficult in his case as he started out with movement disorder and then developed the dementia versus Lewy body disease in which the dementia and psychosis often predate the movement disorder, so we are all leaning towards Parkinson's as the primary issue. We have had him on Sinemet 1-1/2 tablets 3 times a day of 25/100 at bedtime and he has done reasonably well but his wondered if he could do a little better and over the past 6 weeks, we have gradually increased him to 2 tablets 3 times a day and 1 at bed time. When I saw in early August, he looked great, in fact better than he ever had. He was making some sense, he was interactive and his mood was good and we simply continue the medications. Now over the past several weeks, he has had some intermittent return of his confusional episodes, his disorientation and he has had more falls, more impulsivity and apparently has had a little more urinary frequency and incontinence. There has been no associated fevers, sweats, chills. Complains of dysuria, headaches or other issues that would suggest a systemic infection and he has had no acute events of hemimotor disturbance, etc. Because of the increasing problems, he was brought to the hospital and admitted overnight. A CAT scan suggested the possibility of some new infarctions in the right cerebellum or at least infarctions that occurred since his prior CT at our institution in 2011. PAST MEDICAL AND SURGICAL HISTORY: His past medical history otherwise includes BPH with urinary obstruction, depression, dyslipidemia, GERD, prior episodes of pneumonia, renal stones, history of malignant melanoma now resolved, metabolic syndrome, Parkinson disease as noted above with dementia and hallucinations and psychosis, prediabetes, right bundle branch block and surgically, he has had a cystoscopy, hernia repair, lumbar hemilaminectomy for a synovial cyst and also has had some surgery or at least attention to a complex believe left foot fracture in about 5-6 years ago. FAMILY HISTORY: Positive for cancer and diabetes. SOCIAL HISTORY: Reveals him to be a former smoker, does not use alcohol. He is and lives with his and his downsized in the family home and lives in a development with a lot of activities available to him and recently he has been participating more and has a caregiver during the day,who sometimes helps him go through these various activities and with whom he gets along. IMMUNIZATIONS: His immunizations are up-to-date is no history of multidrug-resistant organisms. ALLERGIES: HE HAS ALLERGIES TO OXYBUTYNIN, WHICH CAUSED HALLUCINATIONS TO HIS ANTICHOLINERGIC EFFECTS AND TRAMADOL WHICH GIVES HIM SHORTNESS OF BREATH. CURRENT MEDICATIONS: Include aspirin, Rhinocort, carbidopa/levodopa 2 tablets t.i.d. and 1 at bedtime, temovate, clonazepam, Aricept 25 mg tablets at bedtime, finasteride, ibuprofen, lisinopril, omeprazole,Nuplizad 15 mg daily, simvastatin, and Effexor. He is followed by Dr. Monroy of geriatric psychiatry. P.r.n. medications include BuSpar twice a day. I do not know how often he takes this. REVIEW OF SYSTEMS: As noted above is pretty benign for recent fevers, sweats, chills, weight loss, weight gain, new issues referable to the head, eyes, ears, nose and throat; cardiovascular, pulmonary, gastrointestinal, genitourinary, musculoskeletal systems other than more frequency of urination. Physical examination: VITAL SIGNS: On exam, his blood pressure was 159/96, pulse was 63, respirations 14. GENERAL: He was moderately over nourished his mental status was grossly clear. He was cooperative. HEENT: Examination was unremarkable. LUNGS: Clear. HEART: Had a regular rhythm. There were no murmurs. There are no masses on abdominal examination, bowel sounds were normal. EXTREMITIES: Free of edema. NEUROLOGIC: Today, he is very lethargic. He mumbles. He makes eye contact, but does not seem to actually recognize me, although he smiles as if in recognition. He has the bradykinetic faces with positive Myerson sign. Eye movements are normal. There is no supranuclear gaze disturbance. Facial motility and strength is otherwise normal. Facial sensation is intact. Speech is low volume. He has generalized rigidity, worse on the left with some hypertonicity, cogwheeling and tremor now bilaterally, all consistent with his known Parkinson's. Reflexes are hypoactive throughout. Toes are downgoing. There is no Demario signs. Strength is grossly intact, although his cooperation is limited and sensory examination cannot really be performed reliably in review of his mental status. He is not oriented. He appears to be actually hallucinating and is looking around the room and most of his speech is nonsensical. He will tag together some sentences, but they are not pertinent to the questions being asked. According to his , and daughter in the room, this is typical what he has been doing, although he has had some moments of relative clarity as well. I do not see lip smacking or evidence that might suggest an ongoing nonconvulsive seizure pattern. IMAGING DATA: Subsequent MRI examinations have shown evidence indeed for cerebellar infarctions, but they appear to be old certainly not anything acute and have emerged since 2011, but could have occurred at any time, involve the right cerebellar hemisphere and may well have been clinically silent and certainly have nothing to do with the current issue. LABORATORY DATA: Basic laboratory studies, urinalysis, etc. showed no signs of infection. A chest x-ray does not show any evidence for potential pneumonitis. IMPRESSION AND PLAN: It is not clear what is going on in Oral' case. I am going to do an EEG just to be sure there is no ongoing nonconvulsive seizure activity. Unfortunately, he has not had his Nuplazid today as it is not on a formulary and the family is going to bring him tomorrow, but I do not think this explains his decline as the history suggests he has been going down for about 2 weeks. I do not think the increased Sinemet did this, but it is possible it could have, we built this up very gradually, we reached a dose that was stable, about a week before I saw him and at that time he was doing well but just to be on the safe side, I am going to go back to the Sinemet 25/100 tablets 3 times a day and [address] Mazariegos is going to be making rounds tomorrow and has already been told about his case. We may need to get psychiatry involved while he is an inpatient to see if they have any input and will await to see if any workup for underlying metabolic or toxic processes return positive, but so far it does not look as though any abnormalities are present to sufficiently explain this decline in overall status, based on and infection based delirium. MTDD
[2016-09-21] MEDS: CLONAZEPAM 0.5 MG TAB PO SCH (19:59)
[2016-09-21] MEDS: DONEPEZIL HCL 10 MG TAB PO SCH (20:01)
[2016-09-21] MEDS: SIMVASTATIN 10 MG TAB PO SCH (20:17)
[2016-09-21] MEDS ORDERED: CARBIDOPA/LEVODOPA 25/100MG TAB PO SCH (21:00)
--- NOTE | 2016-09-21 21:44 | Progress Note ---
Medicine Progress Note Date & Time of Visit: Sep 21, 2016 at 11:20 . Subjective Patient unable to care for reliable history due to his dementia. No fever. Denies chest pain or shortness of breath. No nausea or vomiting. visiting. . Objective Last 8 Hrs Date Time Temp Pulse Resp B/P (MAP) Pulse Ox O2 Delivery O2 Flow Rate FiO2 09/21/16 20:33 36.8 72 20 172/94 (120) 93 Room Air 09/21/16 20:00 Room Air 09/21/16 16:00 94 Room Air 09/21/16 15:37 36.2 64 20 137/83 (101) 97 Room Air Physical Exam: General- sitting in wheelchair; no acute distress Eyes- anicteric Neck- no JVD Lungs- clear Heart- regular rate and rhythm Abdomen- normal bowel sounds, soft, nontender Extremities- no pretibial edema or calf tenderness Neuro- alert; PERRL, EOMI; masked facies; ? left facial droop; motor strength upper and lower extremities intact; resting tremor; moderate cogwheel rigidity upper extremities Skin- abrasions right upper extremity and right lower extremity with some associated cellulitis . Laboratory Results: Last 24 Hours Test 09/21/16 06:55 White Blood Count 7.57 K/uL Red Blood Count 4.91 M/uL Hemoglobin 15.8 g/dL Hematocrit 46.6 % Mean Corpuscular Volume 94.9 fL Mean Corpuscular Hemoglobin 32.2 pg Mean Corpuscular Hemoglobin Concent 33.9 g/dl Platelet Count 179 K/uL Mean Platelet Volume 9.9 fL Neutrophils (%) (Auto) 61.1 % Lymphocytes (%) (Auto) 24.3 % Monocytes (%) (Auto) 8.6 % Eosinophils (%) (Auto) 4.8 % Basophils (%) (Auto) 0.9 % Neutrophils # (Auto) 4.63 K/uL Lymphocytes # (Auto) 1.84 K/uL Monocytes # (Auto) 0.65 K/uL Eosinophils # (Auto) 0.36 K/uL Basophils # (Auto) 0.07 K/uL RDW Standard Deviation 42.5 fL RDW Coefficient of Variation 12.3 % Immature Granulocyte % (Auto) 0.3 % Immature Granulocyte # (Auto) 0.02 K/uL Erythrocyte Sedimentation Rate 4 mm/hr Sodium Level 143 mmol/L Potassium Level 3.8 mmol/L Chloride Level 106 mmol/L Carbon Dioxide Level 30 mmol/L Anion Gap 7.0 mmol/L Blood Urea Nitrogen 23 mg/dl Creatinine 0.89 mg/dl Est Creatinine Clear Calc Drug Dose 98.5 ml/min Estimated GFR () 101.1 Estimated GFR (Non- 87.2 BUN/Creatinine Ratio 25.9 Random Glucose 110 mg/dl Calcium Level 8.4 mg/dl C-Reactive Protein 0.42 mg/dl Triglycerides Level 132 mg/dl Cholesterol Level 109 mg/dl HDL Cholesterol 40 mg/dl LDL Cholesterol, Calculated 43 mg/dl VLDL Cholesterol, Calculated 26 mg/dl Cholesterol/HDL Ratio 2.7 Hepatitis C Antibody Screen NEG Assessment & Plan ALTERED MENTAL STATUS / ATAXIA CT demonstrated right cerebellar lesions. MRI pending. Neurology consulted. PT / OT. ABRASIONS / CELLULITIS RUE + RLE Afebrile. Continue cefazolin. PARKINSON'S DISEASE Management per Neurology. DEMENTIA Management per Neurology and Psychiatry. PREDIABETES Follow blood sugars. BPH Continue finasteride. VTE PROPHYLAXIS SQ enoxaparin. Ambulate. DISPOSITION May need skilled care or rehabilitation. Case Management consulted. Internal Medicine follow-up with Dr. Andrade. . Current Inpatient Medications: Current Inpatient Medications Medications (Trade) Dose Ordered Sig/Rosa Route Start Time Stop Time Status Last Admin Dose Admin Acetaminophen (Tylenol Tab) 650 mg Q4H PRN PO 09/20/16 15:15 10/20/16 15:14 Ondansetron HCl (Zofran Inj) 4 mg Q6H PRN IV 09/20/16 15:15 10/20/16 15:14 Miscellaneous Information (Pharmacist Discharge Med Rec Consult) 1 ea UD PRN N/A 09/20/16 15:15 10/20/16 15:14 Aspirin (Ecotrin Tab) 81 mg DAILY PO 09/21/16 09:00 10/21/16 08:59 09/21/16 08:18 81 MG Budesonide (Rhinocort Aq Nasal Farber) 2 sprays DAILY JOSE 09/21/16 09:00 10/21/16 08:59 09/21/16 08:18 2 SPRAYS Buspirone HCl (Buspar Tab) 5 mg BID PRN PO 09/20/16 15:15 10/20/16 15:14 09/21/16 15:41 5 MG Carbidopa/Levodopa (Sinemet 25/ 100MG Tab) 1 tab HS PO 09/20/16 21:00 10/20/16 20:59 09/21/16 20:00 1 TAB Clonazepam (Klonopin Tab) 0.5 mg HS PO 09/20/16 21:00 10/20/16 20:59 09/21/16 19:59 0.5 MG Donepezil HCl (Aricept Tab) 20 mg HS PO 09/21/16 21:00 10/21/16 20:59 09/21/16 20:01 20 MG Finasteride (Proscar Tab) 5 mg DAILY PO 09/21/16 09:00 10/21/16 08:59 09/21/16 08:19 5 MG Lisinopril (Zestril Tab) 2.5 mg DAILY PO 09/21/16 09:00 10/21/16 08:59 09/21/16 08:20 2.5 MG Simvastatin (Zocor Tab) 10 mg HS PO 09/21/16 21:00 10/21/16 20:59 Venlafaxine HCl (effeXOR EXTENDED REL CAP) 150 mg QAM PO 09/21/16 09:00 10/21/16 08:59 09/21/16 08:18 150 MG Miscellaneous Information (Order Awaiting Action) 1 ea QS N/A 09/21/16 00:00 10/21/16 00:00 Pantoprazole Sodium (Protonix Tab) 40 mg QAM PO 09/21/16 09:00 10/21/16 08:59 09/21/16 08:19 40 MG Enoxaparin Sodium (Lovenox Inj) 40 mg Q24H SQ 09/20/16 18:00 10/20/16 17:59 09/21/16 18:13 40 MG Clopidogrel Bisulfate (plAVix TAB) 75 mg QAM PO 09/21/16 09:00 10/21/16 08:59 09/21/16 08:18 75 MG Miscellaneous Information (Order Awaiting Action) 1 ea QS N/A 09/21/16 00:00 10/21/16 00:00 Cefazolin Sodium 1000 mg/Dextrose 55 ml @ 100 mls/hr Q8H IV 09/20/16 21:00 6/10/17 20:59 09/21/16 20:17 100 MLS/HR Gadobutrol (Gadavist) 10 mmol UD PRN IV 09/21/16 14:00 09/25/16 13:59 Carbidopa/Levodopa (Sinemet 25/ 100MG Tab) 1.5 tab TID PO 09/21/16 21:00 10/21/16 20:59 09/21/16 20:01 1.5 TAB
[2016-09-22] VITALS (7 sets, daily range): BP systolic 127–161; BP diastolic 77–88; PULSE 65–106; TEMP 36.5–37; O2SAT 93–97
[2016-09-22] MEDS: CEFAZOLIN IV 1,000 MG in DEXTROSE 5% 50ML 50 ML IV SCH ×3 (05:00→21:02)
--- NOTE | 2016-09-22 06:11 | Clinical Documentation Query ---
CLINICAL DOCUMENTATION QUERY 70 year old male who presents to the Emergency Room with complaints of worsening debilitation In your clinical opinion is this patient being managed for: ( ) Possible Toxic encephalopathy in setting of Sinemet toxicity treated with reduce in dosing. ( ) Other explanation of clinical findings (Please Explain) ( x ) Unable to determine (Please Define) UNCERTAIN ( ) Need to Discuss ( ) Not Agree The medical record reflects the following clinical findings, treatment, and risk factors. Clinical Indicators: AMS and ataxia documented. Neurology is hypothesizing it could be related to recent Sinemet dosing increase. Treatment: Decrease in Sinemet dosing Risk Factors: Age, Sinemet therapy Please clarify and document your clinical opinion in the progress notes and discharge summary. Terms such as "probable", "suspected", "likely", "questionable", "possible", or "still to be ruled out" are acceptable. IF IN AGREEMENT, YOU MUST DOCUMENT ABOVE DIAGNOSTIC STATEMENT IN DAILY PROGRESS NOTES AND DISCHARGE SUMMARY. This document is not part of the patient's record. Thank You, Norberto Alvarado RN [phone]
[2016-09-22] MEDS: VENLAFAXINE HCL XR 150 MG CAPXR PO SCH (07:29)
[2016-09-22] MEDS: CARBIDOPA/LEVODOPA 25/100MG TAB PO SCH ×4 (07:30→20:54)
[2016-09-22] MEDS: ASPIRIN 81 MG ECTAB PO SCH (07:30)
[2016-09-22] MEDS: CLOPIDOGREL BISULFATE 75 MG TAB PO SCH (07:30)
[2016-09-22] MEDS: FINASTERIDE 5 MG TAB PO SCH (07:31)
[2016-09-22] MEDS: PANTOprazole SOD 40 MG TAB PO SCH (07:31)
[2016-09-22] MEDS: LISINOPRIL 2.5 MG TAB PO SCH (07:31)
[2016-09-22] MEDS: BUDESONIDE AQ (RHINOCORT AQ) NASAL SPRAY 32 MCG NAE SCH (07:32)
[2016-09-22 07:34] LABS: BASO ABS # 0.07 K/uL (0-0.2); COMPLETE YES; EOS % 2.9 %; IG% 0.1 %; LYMPH % 19.3 %; LYMPH ABS # 1.41 K/uL (1.2-3.4); MEAN CELL VOLUME 94.3 fL (80-100); MEAN CORPUSCULAR HEMOGLOBIN 31.4 pg (25-34); MEAN CORPUSCULAR HGB CONC 33.3 g/dl (32-36); MEAN PLATELET VOLUME 9.7 fL (7.4-10.4); MONO % 8.1 %; NEUT % 68.6 %; PLATELET COUNT 182 K/uL (130-400); RED BLOOD COUNT 4.77 M/uL (4.7-6.1); WHITE BLOOD COUNT 7.32 K/uL (4.8-10.8)
[2016-09-22] MEDS: [UNRECOGNIZED DRUG - REMARK] SCH ×3 (08:00→21:48)
[2016-09-22 08:01] LABS: BUN/CREATININE RATIO 24.3 (10-20); CALCIUM 8.1 mg/dl (8.5-10.1); CREATININE 0.91 mg/dl (0.60-1.40); POTASSIUM 3.8 mmol/L (3.5-5.1)
[2016-09-22] MEDS: NUPLAZID PO SCH (10:32)
--- NOTE | 2016-09-22 13:26 | Orthopedic Progress Note ---
Orthopedic Progress Note Date of Service Sep 22, 2016. Subjective Reports: feeling well Additional Notes: Family present. No new complaints. Family states that patient's hand continues to look better each day. Objective capillary refill less than 2 sec. Right hand/fingers with multiple abrasions. Minimal erythema noted. Pt using fingers/hand well. Pt pulls covers down with right hand to show his abrasions on his right knee. Date Time Temp Pulse Resp B/P (MAP) Pulse Ox O2 Delivery O2 Flow Rate FiO2 09/22/16 12:00 Room Air 09/22/16 11:46 36.6 106 20 127/79 (95) 97 Room Air 09/22/16 08:00 Room Air 09/22/16 07:40 36.5 68 18 135/78 (97) 97 Room Air 09/22/16 04:10 36.6 68 18 161/81 (107) 95 Room Air 09/22/16 04:00 Room Air 09/22/16 00:01 36.8 72 18 151/88 (109) 93 09/22/16 00:00 Room Air 09/21/16 20:33 36.8 72 20 172/94 (120) 93 Room Air 09/21/16 20:00 Room Air 09/21/16 16:00 94 Room Air 09/21/16 15:37 36.2 64 20 137/83 (101) 97 Room Air Laboratory Results 24 Hours: Test 09/22/16 06:40 White Blood Count 7.32 K/uL Red Blood Count 4.77 M/uL Hemoglobin 15.0 g/dL Hematocrit 45.0 % Mean Corpuscular Volume 94.3 fL Mean Corpuscular Hemoglobin 31.4 pg Mean Corpuscular Hemoglobin Concent 33.3 g/dl Platelet Count 182 K/uL Mean Platelet Volume 9.7 fL Neutrophils (%) (Auto) 68.6 % Lymphocytes (%) (Auto) 19.3 % Monocytes (%) (Auto) 8.1 % Eosinophils (%) (Auto) 2.9 % Basophils (%) (Auto) 1.0 % Neutrophils # (Auto) 5.03 K/uL Lymphocytes # (Auto) 1.41 K/uL Monocytes # (Auto) 0.59 K/uL Eosinophils # (Auto) 0.21 K/uL Basophils # (Auto) 0.07 K/uL Assessment & Plan Assessment: Cellulitis Right hand - resolving. Plan: Continue antibiotics as per Med Service Ortho will sign off now. Please call with any questions or worsening symptoms.
--- NOTE | 2016-09-22 15:09 | ELECTROENCEPHALOGRAPH REPORT ---
CLINICAL DIAGNOSIS: Parkinson's with dementia and hallucinations now with increasing confusion and lethargy. EEG DIAGNOSIS: Mildly diffusely abnormal EEG during apparent wakefulness. DESCRIPTION OF TRACING: This EEG was done as a bedside recording with simultaneous video analysis of patient movement and behavior. Photic stimulation was performed. Episodes of drowsiness are recorded. Overall, there are a very few muscle or movement artifacts and tracing is of good technical quality. The video analysis suggests that the patient is actually drowsy most of the time. The background rhythm during most of the recording is between 8 and 9 Hz in maximum frequency and is maximum in posterior head regions and is of up to 30 microvolts in amplitude. There is a slight excessive amount of slower activity in the theta range over all head regions and occasional waveforms in the delta range are seen but no lateralizing patterns are noted. Beta activity is seen bifrontally. Photic stimulation provoked some minimal driving response without a photomyogenic or photoparoxysmal component. During episodes of more obvious drowsiness the background rhythm shifts even further into the theta range and there is a little buildup of theta activity. At no time during the waking or drowsy tracing is there evidence for potentially epileptogenic activity in the form of polyspike or spike wave bursts, focal sharp waves or focal spikes. INTERPRETATION: This EEG is at most mildly diffusely abnormal with the abnormalities consisting of a slight shift of the expected background alpha rhythm into the upper theta range and a slightly excessive amount of slow wave activity, but there are no lateralizing features and no potentially epileptogenic patterns are seen. The pattern is highly nonspecific and correlates with a minimal to mild encephalopathy at most and again demonstrates no lateralizing abnormalities or potentially epileptogenic activity.
[2016-09-22] MEDS: ENOXAPARIN 40 MG/0.4 ML SYR SQ SCH (17:03)
--- NOTE | 2016-09-22 18:20 | PROGRESS NOTE ---
DATE: 09/22/2016 HISTORY OF PRESENT ILLNESS: I am seeing Mr. Tesfaye in followup. He was admitted with a change in mental status and increased falls. An MRI of the brain did not show any acute infarction and no obvious toxic metabolic etiology found. Dr. Guerra performed an EEG. The results of which showed no adriana seizure activity. The Sinemet which had been increased in dose 6-8 weeks ago was reduced back down to the pre-increased dose and the patient is about the same certainly as confused as he had been. PHYSICAL EXAMINATION: He is awake, fluctuating attention. Oriented to person only. There is a jaw and tongue tremor. His speech is hypophonic. There is cogwheel rigidity bilaterally with some resting tremor, rigidity is worse on the left than the right. The patient follows commands slowly with some perseveration. IMPRESSION AND PLAN: The patient with Parkinson's disease with dementia versus Lewy body dementia with parkinsonism that change in cognition and function without any obvious toxic metabolic or structural etiologies. I do not think it was unreasonable to reduce the dose of the Sinemet to see if the increase in dose contributed to his increased encephalopathy. The patient will need to have inpatient stay for rehab is be reasonable. We will follow with you. GINA
[2016-09-22] MEDS: CLONAZEPAM 0.5 MG TAB PO SCH (20:53)
[2016-09-22] MEDS: SIMVASTATIN 10 MG TAB PO SCH (20:54)
[2016-09-22] MEDS: DONEPEZIL HCL 10 MG TAB PO SCH (20:54)
--- NOTE | 2016-09-22 23:34 | Progress Note ---
Medicine Progress Note Date & Time of Visit: Sep 22, 2016 at 19:00 . Subjective Somnolent at times. Able to eat supper without assistance. Conversant at time of my assessment. Review of systems not reliable due to severe dementia. . Objective Last 8 Hrs Date Time Temp Pulse Resp B/P (MAP) Pulse Ox O2 Delivery O2 Flow Rate FiO2 09/22/16 23:25 37.0 66 16 136/77 (96) 93 Room Air 09/22/16 20:00 Room Air 09/22/16 19:32 36.6 65 18 146/84 (104) 95 Room Air 09/22/16 16:02 37.0 67 18 137/83 (101) 97 Room Air 09/22/16 16:00 Room Air Physical Exam: General- lying in bed; no acute distress Eyes- anicteric Neck- no JVD Lungs- clear Heart- RRR Abdomen- normal bowel sounds, soft, nontender Extremities- no pretibial edema or calf tenderness Neuro- somnolent, but arousable; conversant; confused; PERRL, EOMI; masked facies; resting tremor; moderate cogwheel rigidity upper extremities Skin- abrasions right upper extremity and right lower extremity with some associated cellulitis . Laboratory Results: Last 24 Hours Test 09/22/16 06:40 09/22/16 11:15 09/22/16 16:14 White Blood Count 7.32 K/uL Red Blood Count 4.77 M/uL Hemoglobin 15.0 g/dL Hematocrit 45.0 % Mean Corpuscular Volume 94.3 fL Mean Corpuscular Hemoglobin 31.4 pg Mean Corpuscular Hemoglobin Concent 33.3 g/dl Platelet Count 182 K/uL Mean Platelet Volume 9.7 fL Neutrophils (%) (Auto) 68.6 % Lymphocytes (%) (Auto) 19.3 % Monocytes (%) (Auto) 8.1 % Eosinophils (%) (Auto) 2.9 % Basophils (%) (Auto) 1.0 % Neutrophils # (Auto) 5.03 K/uL Lymphocytes # (Auto) 1.41 K/uL Monocytes # (Auto) 0.59 K/uL Eosinophils # (Auto) 0.21 K/uL Basophils # (Auto) 0.07 K/uL RDW Standard Deviation 41.7 fL RDW Coefficient of Variation 12.1 % Immature Granulocyte % (Auto) 0.1 % Immature Granulocyte # (Auto) 0.01 K/uL Sodium Level 141 mmol/L Potassium Level 3.8 mmol/L Chloride Level 105 mmol/L Carbon Dioxide Level 29 mmol/L Anion Gap 7.0 mmol/L Blood Urea Nitrogen 22 mg/dl Creatinine 0.91 mg/dl Est Creatinine Clear Calc Drug Dose 95.4 ml/min Estimated GFR () 99.3 Estimated GFR (Non- 85.7 BUN/Creatinine Ratio 24.3 Random Glucose 107 mg/dl Calcium Level 8.1 mg/dl Bedside Glucose 90 mg/dl 115 mg/dl Assessment & Plan ALTERED MENTAL STATUS / [place] CT and MRI demonstrated old right cerebellar lesions. No apparent infections that might cause delirium (cellulitis extremities mild does not appear to be toxic). Neurology consulted. PT / OT. ABRASIONS / CELLULITIS RUE + RLE Afebrile. Continue cefazolin. PARKINSON'S DISEASE Management per Neurology. Sinemet dose adjusted. DEMENTIA Management per Neurology and Psychiatry. PREDIABETES Follow blood sugars. BPH Continue finasteride. VTE PROPHYLAXIS SQ enoxaparin. Ambulate. DISPOSITION May need skilled care or rehabilitation. Case Management consulted. Internal Medicine follow-up with Dr. Andrdae. . Current Inpatient Medications: Current Inpatient Medications Medications (Trade) Dose Ordered Sig/Rosa Route Start Time Stop Time Status Last Admin Dose Admin Acetaminophen (Tylenol Tab) 650 mg Q4H PRN PO 09/20/16 15:15 10/20/16 15:14 Ondansetron HCl (Zofran Inj) 4 mg Q6H PRN IV 09/20/16 15:15 10/20/16 15:14 Miscellaneous Information (Pharmacist Discharge Med Rec Consult) 1 ea UD PRN N/A 09/20/16 15:15 10/20/16 15:14 Aspirin (Ecotrin Tab) 81 mg DAILY PO 09/21/16 09:00 10/21/16 08:59 09/22/16 07:30 81 MG Budesonide (Rhinocort Aq Nasal [place]) 2 sprays DAILY JOSE 09/21/16 09:00 10/21/16 08:59 09/22/16 07:32 2 SPRAYS Buspirone HCl (Buspar Tab) 5 mg BID PRN PO 09/20/16 15:15 10/20/16 15:14 6/2/17 15:23 5 MG Carbidopa/Levodopa (Sinemet 25/ 100MG Tab) 1 tab HS PO 09/20/16 21:00 10/20/16 20:59 09/22/16 20:54 1 TAB Clonazepam (Klonopin Tab) 0.5 mg HS PO 09/20/16 21:00 10/20/16 20:59 09/22/16 20:53 0.5 MG Donepezil HCl (Aricept Tab) 20 mg HS PO 09/21/16 21:00 10/21/16 20:59 09/22/16 20:54 20 MG Finasteride (Proscar Tab) 5 mg DAILY PO 09/21/16 09:00 10/21/16 08:59 09/22/16 07:31 5 MG Lisinopril (Zestril Tab) 2.5 mg DAILY PO 09/21/16 09:00 10/21/16 08:59 09/22/16 07:31 2.5 MG Simvastatin (Zocor Tab) 10 mg HS PO 09/21/16 21:00 10/21/16 20:59 09/22/16 20:54 10 MG Venlafaxine HCl (effeXOR EXTENDED REL CAP) 150 mg QAM PO 09/21/16 09:00 10/21/16 08:59 09/22/16 07:29 150 MG Pantoprazole Sodium (Protonix Tab) 40 mg QAM PO 09/21/16 09:00 10/21/16 08:59 09/22/16 07:31 40 MG Enoxaparin Sodium (Lovenox Inj) 40 mg Q24H SQ 09/20/16 18:00 10/20/16 17:59 09/22/16 17:03 40 MG Clopidogrel Bisulfate (plAVix TAB) 75 mg QAM PO 09/21/16 09:00 10/21/16 08:59 09/22/16 07:30 75 MG Miscellaneous Information (Order Awaiting Action) 1 ea QS N/A 09/21/16 00:00 10/21/16 00:00 Cefazolin Sodium 1000 mg/Dextrose 55 ml @ 100 mls/hr Q8H IV 09/20/16 21:00 09/30/16 20:59 09/22/16 21:02 100 MLS/HR Gadobutrol (Gadavist) 10 mmol UD PRN IV 09/21/16 14:00 09/25/16 13:59 Carbidopa/Levodopa (Sinemet 25/ 100MG Tab) 1.5 tab TID@0900,1300,1700 PO 09/22/16 09:00 10/22/16 08:59 09/22/16 17:02 1.5 TAB Non-Formulary Medication (Non-Formulary Patient'S Own Med) 2 ea DAILY PO 09/22/16 10:00 10/22/16 09:59 09/22/16 10:32 2 EA
[2016-09-23 04:00] VITALS: BP 134/75; PULSE 60; TEMP 36.7; O2SAT 94
[2016-09-23] MEDS: CEFAZOLIN IV 1,000 MG in DEXTROSE 5% 50ML 50 ML IV SCH ×3 (05:38→21:34)
[2016-09-23 07:20] VITALS: BP_SYST 159; BP_SYST 162; BP_SYST 170; BP_DIAS 101; BP_DIAS 85; BP_DIAS 92; PULSE 60; PULSE 62; PULSE 70; TEMP 36.6; O2SAT 94
[2016-09-23] MEDS: [UNRECOGNIZED DRUG - REMARK] SCH ×3 (07:43→23:28)
[2016-09-23 07:51] LABS: BASO % 1.4 %; BASO ABS # 0.09 K/uL (0-0.2); COMPLETE YES; EOS % 6.4 %; HEMATOCRIT 47.7 % (42-52); IG% 0.3 %; LYMPH % 23.5 %; LYMPH ABS # 1.47 K/uL (1.2-3.4); MEAN CELL VOLUME 93.7 fL (80-100); MEAN CORPUSCULAR HGB CONC 33.1 g/dl (32-36); MEAN PLATELET VOLUME 9.5 fL (7.4-10.4); MONO % 7.8 %; NEUT % 60.6 %; PLATELET COUNT 178 K/uL (130-400); RED BLOOD COUNT 5.09 M/uL (4.7-6.1); WHITE BLOOD COUNT 6.26 K/uL (4.8-10.8)
[2016-09-23] MEDS: LISINOPRIL 2.5 MG TAB PO SCH (08:28)
[2016-09-23] MEDS: CARBIDOPA/LEVODOPA 25/100MG TAB PO SCH ×4 (08:28→18:34)
[2016-09-23] MEDS: PANTOprazole SOD 40 MG TAB PO SCH (08:28)
[2016-09-23] MEDS: FINASTERIDE 5 MG TAB PO SCH (08:28)
[2016-09-23] MEDS: NUPLAZID PO SCH (08:29)
[2016-09-23] MEDS: BUDESONIDE AQ (RHINOCORT AQ) NASAL SPRAY 32 MCG NAE SCH (08:29)
[2016-09-23 08:50] LABS: BUN/CREATININE RATIO 23.3 (10-20); CALCIUM 8.1 mg/dl (8.5-10.1); CREATININE 0.9 mg/dl (0.60-1.40); POTASSIUM 3.8 mmol/L (3.5-5.1)
[2016-09-23] MEDS: VENLAFAXINE HCL XR 150 MG CAPXR PO SCH (09:00)
[2016-09-23] MEDS: ASPIRIN 81 MG ECTAB PO SCH (09:00)
[2016-09-23] MEDS: CLOPIDOGREL BISULFATE 75 MG TAB PO SCH (09:00)
[2016-09-23 11:08] VITALS: BP 120/76; PULSE 66; TEMP 36.9; O2SAT 96
[2016-09-23] MEDS ORDERED: LORATADINE 10 MG TAB PO ONE (11:48)
--- NOTE | 2016-09-23 13:17 | PROGRESS NOTE ---
DATE: 09/23/2016 SUBJECTIVE: I am seeing Mr. Tesfaye in follow up of Parkinson disease with dementia with some increasing confusion and increasing gait dysfunction. Dr. Guerra appropriately decreased the dose of Sinemet from 25/100 1-1/2 three times a day with 1 at bedtime. His indicates to me that the soon before things changed, he was fishing with the nurse healthcare manager, and they wonder if he could have contracted Lyme disease. OBJECTIVE: The patient is awake, closes his eyes while eating, query some mild blepharospasm, no significant orthostatic changes in blood pressure. Pulse, he is generally quite bradykinetic. There is a resting tremor bilaterally. He has some akinesia. We were able to get him to stand by the bedside and he has a very narrow-based gait with shuffling. IMPRESSION AND PLAN: Parkinson disease, recent fluctuation, unclear etiology. No obvious cause, toxically, metabolically and no identified infection. My plan is to increase the dose of the Sinemet back to what he was on prior to admission, checked a Lyme titer. Will continue to follow with you. GINA
[2016-09-23 15:37] VITALS: BP 121/82; PULSE 70; TEMP 36.8; O2SAT 95
[2016-09-23 18:14] VITALS: BP 134/84; PULSE 70; TEMP 36.7; O2SAT 97
[2016-09-23] MEDS: ENOXAPARIN 40 MG/0.4 ML SYR SQ SCH (18:17)
[2016-09-23] MEDS: SIMVASTATIN 10 MG TAB PO SCH (20:05)
[2016-09-23] MEDS: DONEPEZIL HCL 10 MG TAB PO SCH (20:05)
[2016-09-23] MEDS: CLONAZEPAM 0.5 MG TAB PO SCH (20:09)
[2016-09-23 21:32] LABS: LYME DISEASE AB IGM NEG (NEG)
[2016-09-23 21:44] LABS: LYME DISEASE AB IGG NEG (NEG)
--- NOTE | 2016-09-23 23:31 | Progress Note ---
Medicine Progress Note Date & Time of Visit: Sep 23, 2016 at 16:40 . Subjective Pleasantly confused. No complaints. and daughter visiting. No fever. No chest pain. No cough or shortness of breath. Good appetite, no nausea or vomiting. No reported diarrhea. Ocampo catheter removed this morning. Seen earlier today by Neurology. Sinemet dose adjusted. . Objective Last 8 Hrs Date Time Temp Pulse Resp B/P (MAP) Pulse Ox O2 Delivery O2 Flow Rate FiO2 09/23/16 20:40 Room Air 09/23/16 18:14 36.7 70 18 134/84 (101) 97 09/23/16 16:05 Room Air 09/23/16 15:37 36.8 70 20 121/82 (95) 95 Room Air Physical Exam: General- lying in bed; no acute distress Neck- no JVD Lungs- clear Heart- RRR Abdomen- normal bowel sounds, soft, nontender Extremities- no pretibial edema or calf tenderness Neuro- alert, pleasantly confused; PERRL, EOMI; masked facies; resting tremor; moderate cogwheel rigidity upper extremities Skin- abrasions right upper extremity and right lower extremity with resolving cellulitis . Laboratory Results: Last 24 Hours Test 09/23/16 07:35 09/23/16 16:48 White Blood Count 6.26 K/uL Red Blood Count 5.09 M/uL Hemoglobin 15.8 g/dL Hematocrit 47.7 % Mean Corpuscular Volume 93.7 fL Mean Corpuscular Hemoglobin 31.0 pg Mean Corpuscular Hemoglobin Concent 33.1 g/dl Platelet Count 178 K/uL Mean Platelet Volume 9.5 fL Neutrophils (%) (Auto) 60.6 % Lymphocytes (%) (Auto) 23.5 % Monocytes (%) (Auto) 7.8 % Eosinophils (%) (Auto) 6.4 % Basophils (%) (Auto) 1.4 % Neutrophils # (Auto) 3.79 K/uL Lymphocytes # (Auto) 1.47 K/uL Monocytes # (Auto) 0.49 K/uL Eosinophils # (Auto) 0.40 K/uL Basophils # (Auto) 0.09 K/uL RDW Standard Deviation 41.6 fL RDW Coefficient of Variation 12.2 % Immature Granulocyte % (Auto) 0.3 % Immature Granulocyte # (Auto) 0.02 K/uL Sodium Level 141 mmol/L Potassium Level 3.8 mmol/L Chloride Level 106 mmol/L Carbon Dioxide Level 26 mmol/L Anion Gap 9.0 mmol/L Blood Urea Nitrogen 21 mg/dl Creatinine 0.90 mg/dl Est Creatinine Clear Calc Drug Dose 97.1 ml/min Estimated GFR () 100.6 Estimated GFR (Non- 86.8 BUN/Creatinine Ratio 23.3 Random Glucose 106 mg/dl Calcium Level 8.1 mg/dl Lyme Disease IgG Antibody NEG Lyme Disease IgM Antibody NEG Assessment & Plan ALTERED MENTAL STATUS / [place] CT and MRI demonstrated old right cerebellar lesions. No apparent infections that might cause delirium. Neurology consulted. PT / OT. ABRASIONS / CELLULITIS RUE + RLE Afebrile. Received cefazolin with improvement. Transition to oral therapy with cephalexin. PARKINSON'S DISEASE Management per Neurology. Sinemet dose adjusted. DEMENTIA Management per Neurology and Psychiatry. PREDIABETES Follow blood sugars. BPH Continue finasteride. VTE PROPHYLAXIS SQ enoxaparin. Ambulate. DISPOSITION May need skilled care or rehabilitation. Case Management consulted. Internal Medicine follow-up with Dr. Andrade. . Consultants: Neurology . Procedures: Cardiac monitoring CT head CT brain MRA head MRA brain Echocardiogram EEG Intravenous medications PT OT . Current Inpatient Medications: Current Inpatient Medications Medications (Trade) Dose Ordered Sig/Rosa Route Start Time Stop Time Status Last Admin Dose Admin Acetaminophen (Tylenol Tab) 650 mg Q4H PRN PO 09/20/16 15:15 10/20/16 15:14 Ondansetron HCl (Zofran Inj) 4 mg Q6H PRN IV 09/20/16 15:15 10/20/16 15:14 Aspirin (Ecotrin Tab) 81 mg DAILY PO 09/21/16 09:00 10/21/16 08:59 09/23/16 09:00 81 MG Budesonide (Rhinocort Aq Nasal [place]) 2 sprays DAILY JOSE 09/21/16 09:00 10/21/16 08:59 09/22/16 07:32 2 SPRAYS Buspirone HCl (Buspar Tab) 5 mg BID PRN PO 09/20/16 15:15 10/20/16 15:14 09/22/16 15:23 5 MG Clonazepam (Klonopin Tab) 0.5 mg HS PO 09/20/16 21:00 10/20/16 20:59 09/23/16 20:09 0.5 MG Donepezil HCl (Aricept Tab) 20 mg HS PO 09/21/16 21:00 10/21/16 20:59 09/23/16 20:05 20 MG Finasteride (Proscar Tab) 5 mg DAILY PO 09/21/16 09:00 10/21/16 08:59 09/23/16 08:28 5 MG Lisinopril (Zestril Tab) 2.5 mg DAILY PO 09/21/16 09:00 10/21/16 08:59 09/23/16 08:28 2.5 MG Simvastatin (Zocor Tab) 10 mg HS PO 09/21/16 21:00 10/21/16 20:59 09/23/16 20:05 10 MG Venlafaxine HCl (effeXOR EXTENDED REL CAP) 150 mg QAM PO 09/21/16 09:00 10/21/16 08:59 09/23/16 09:00 150 MG Pantoprazole Sodium (Protonix Tab) 40 mg QAM PO 09/21/16 09:00 10/21/16 08:59 09/23/16 08:28 40 MG Enoxaparin Sodium (Lovenox Inj) 40 mg Q24H SQ 09/20/16 18:00 10/20/16 17:59 09/23/16 18:17 40 MG Clopidogrel Bisulfate (plAVix TAB) 75 mg QAM PO 09/21/16 09:00 10/21/16 08:59 09/23/16 09:00 75 MG Miscellaneous Information (Order Awaiting Action) 1 ea QS N/A 09/21/16 00:00 10/21/16 00:00 Cefazolin Sodium 1000 mg/Dextrose 55 ml @ 100 mls/hr Q8H IV 09/20/16 21:00 09/30/16 20:59 09/23/16 21:34 100 MLS/HR Gadobutrol (Gadavist) 10 mmol UD PRN IV 09/21/16 14:00 09/25/16 13:59 Non-Formulary Medication (Non-Formulary Patient'S Own Med) 2 ea DAILY PO 09/22/16 10:00 10/22/16 09:59 09/23/16 08:29 2 EA Loratadine (Claritin Tab) 5 mg QAM PO 09/24/16 08:00 10/24/16 08:59 Carbidopa/Levodopa (Sinemet 25/ 100MG Tab) 2 tab TID@0700,1100,1500 PO 09/23/16 15:00 10/23/16 14:59 09/23/16 15:00 2 TAB Carbidopa/Levodopa (Sinemet 25/ 100MG Tab) 1 tab DAILY@1900 PO 09/23/16 19:00 10/23/16 18:59 09/23/16 18:34 1 TAB
[2016-09-24 00:02] VITALS: BP 139/84; PULSE 70; TEMP 36.7; O2SAT 97
[2016-09-24] MEDS: CARBIDOPA/LEVODOPA 25/100MG TAB PO SCH ×4 (05:54→18:39)
[2016-09-24 08:00] VITALS: BP 148/78; PULSE 95; TEMP 36.6; O2SAT 96
[2016-09-24] MEDS: [UNRECOGNIZED DRUG - REMARK] SCH ×3 (08:00→23:03)
[2016-09-24] MEDS: BUDESONIDE AQ (RHINOCORT AQ) NASAL SPRAY 32 MCG NAE SCH (08:23)
[2016-09-24] MEDS: VENLAFAXINE HCL XR 150 MG CAPXR PO SCH (08:24)
[2016-09-24] MEDS: PANTOprazole SOD 40 MG TAB PO SCH (08:24)
[2016-09-24] MEDS: CLOPIDOGREL BISULFATE 75 MG TAB PO SCH (08:24)
[2016-09-24] MEDS: LISINOPRIL 2.5 MG TAB PO SCH (08:25)
[2016-09-24] MEDS: LORATADINE 10 MG TAB PO SCH (08:25)
[2016-09-24] MEDS: FINASTERIDE 5 MG TAB PO SCH (08:25)
[2016-09-24] MEDS: ASPIRIN 81 MG ECTAB PO SCH (08:26)
[2016-09-24] MEDS: NUPLAZID PO SCH (08:27)
[2016-09-24] MEDS: CEPHALEXIN MONOHYDRATE 500 MG CAP PO SCH ×4 (10:45→20:50)
--- NOTE | 2016-09-24 12:53 | PROGRESS NOTE ---
DATE: 09/24/2016 SUBJECTIVE: I am seeing Mr. Tesfaye in followup with an admission for worsening confusion and gait imbalance in the setting of Parkinson's disease with dementia or Lewy body dementia with Parkinsonism. Fortunately, he has not had any concerning hallucinations. We had increased the dose of his Sinemet yesterday and he is actually more awake and alert today. His Lyme titer is negative. This was performed as his said he had been fishing recently and could have contracted lyme disease which could cause of the change in mental status. OBJECTIVE: VITAL SIGNS: 36.6, 95, 16, 148/78, 96%. The patient is awake and alert. He thinks the scab on his hand looks like a rooster. He is hypophonic, modestly confused, but very cooperative. There is facial masking. The jaw had tongue tremor. Resting tremor with selective cogwheel rigidity more so in the left arm and left leg. Gait was not tested. IMPRESSION: Parkinson's disease. No clear etiology for fluctuation identified. Dr. Guerra had transiently decreased the dose of Sinemet, will increase the dose of Sinemet back to the preadmission dose that is 25/100, 2, 2, 2, 1. No change in Nuplazid which seems to be quite effective. I have asked the nurses to get the patient up and out to a chair. I think ambulating him as soon as possible remains a reasonable goal. Recommend inpatient rehabilitation. MTDD
[2016-09-24 15:12] VITALS: BP 143/83; PULSE 60; TEMP 36.5; O2SAT 97
[2016-09-24] MEDS ORDERED: NURSING VERBAL MED ORDER ONE (15:15)
[2016-09-24] MEDS: ENOXAPARIN 40 MG/0.4 ML SYR SQ SCH (18:39)
--- NOTE | 2016-09-24 19:18 | Progress Note ---
Medicine Progress Note Date & Time of Visit: Sep 24, 2016 at 07:55 . Subjective Pleasantly confused. No complaints. No new problems reported. . Objective Last 8 Hrs Date Time Temp Pulse Resp B/P (MAP) Pulse Ox O2 Delivery O2 Flow Rate FiO2 09/24/16 16:00 Room Air 09/24/16 15:12 36.5 60 18 143/83 (103) 97 Room Air Physical Exam: General- lying in bed; no acute distress Neck- no JVD Lungs- clear Heart- RRR Abdomen- + BS, soft, nontender Extremities- no pretibial edema or calf tenderness Neuro- alert, pleasantly confused; PERRL, EOMI; masked facies; resting tremor; moderate cogwheel rigidity upper extremities Skin- erythema surrounding right upper extremity and right lower extremity abrasions improved . Assessment & Plan ALTERED MENTAL STATUS / [place] CT and MRI demonstrated old right cerebellar lesions. No apparent infections that might cause delirium. Neurology consulted. PT / OT. ABRASIONS / CELLULITIS RUE + RLE Afebrile. Received cefazolin with improvement. Transitioned to oral therapy with cephalexin. PARKINSON'S DISEASE Management per Neurology. Sinemet dose adjusted. DEMENTIA Management per Neurology and Psychiatry. PREDIABETES Fasting blood sugars have been less than 120. Follow. BPH Continue finasteride. VTE PROPHYLAXIS SQ enoxaparin. Ambulate. DISPOSITION May need skilled care or rehabilitation. Case Management consulted. Internal Medicine follow-up with Dr. Andrade. . Consultants: Neurology . Procedures: Cardiac monitoring CT head CT brain MRA head MRA brain Echocardiogram EEG Intravenous medications PT OT . Current Inpatient Medications: Current Inpatient Medications Medications (Trade) Dose Ordered Sig/Rosa Route Start Time Stop Time Status Last Admin Dose Admin Acetaminophen (Tylenol Tab) 650 mg Q4H PRN PO 09/20/16 15:15 10/20/16 15:14 Ondansetron HCl (Zofran Inj) 4 mg Q6H PRN IV 09/20/16 15:15 10/20/16 15:14 Aspirin (Ecotrin Tab) 81 mg DAILY PO 09/21/16 09:00 10/21/16 08:59 09/24/16 08:26 81 MG Budesonide (Rhinocort Aq Nasal [place]) 2 sprays DAILY JOSE 09/21/16 09:00 10/21/16 08:59 09/24/16 08:23 2 SPRAYS Clonazepam (Klonopin Tab) 0.5 mg HS PO 09/20/16 21:00 10/20/16 20:59 09/23/16 20:09 0.5 MG Donepezil HCl (Aricept Tab) 20 mg HS PO 09/21/16 21:00 10/21/16 20:59 09/23/16 20:05 20 MG Finasteride (Proscar Tab) 5 mg DAILY PO 09/21/16 09:00 10/21/16 08:59 09/24/16 08:25 5 MG Lisinopril (Zestril Tab) 2.5 mg DAILY PO 09/21/16 09:00 10/21/16 08:59 09/24/16 08:25 2.5 MG Simvastatin (Zocor Tab) 10 mg HS PO 09/21/16 21:00 10/21/16 20:59 09/23/16 20:05 10 MG Venlafaxine HCl (effeXOR EXTENDED REL CAP) 150 mg QAM PO 09/21/16 09:00 10/21/16 08:59 09/24/16 08:24 150 MG Pantoprazole Sodium (Protonix Tab) 40 mg QAM PO 09/21/16 09:00 10/21/16 08:59 09/24/16 08:24 40 MG Enoxaparin Sodium (Lovenox Inj) 40 mg Q24H SQ 09/20/16 18:00 10/20/16 17:59 09/24/16 18:39 40 MG Clopidogrel Bisulfate (plAVix TAB) 75 mg QAM PO 09/21/16 09:00 10/21/16 08:59 09/24/16 08:24 75 MG Miscellaneous Information (Order Awaiting Action) 1 ea QS N/A 09/21/16 00:00 10/21/16 00:00 Gadobutrol (Gadavist) 10 mmol UD PRN IV 09/21/16 14:00 09/25/16 13:59 Non-Formulary Medication (Non-Formulary Patient'S Own Med) 2 ea DAILY PO 09/22/16 10:00 10/22/16 09:59 09/24/16 08:27 2 EA Loratadine (Claritin Tab) 5 mg QAM PO 09/24/16 08:00 7/4/17 08:59 09/24/16 08:25 5 MG Carbidopa/Levodopa (Sinemet 25/ 100MG Tab) 2 tab TID@0700,1100,1500 PO 09/23/16 15:00 10/23/16 14:59 09/24/16 14:56 2 TAB Carbidopa/Levodopa (Sinemet 25/ 100MG Tab) 1 tab DAILY@1900 PO 09/23/16 19:00 10/23/16 18:59 09/24/16 18:39 1 TAB Cephalexin Monohydrate (Keflex Cap) 500 mg QID PO 09/24/16 08:00 10/04/16 07:59 09/24/16 18:38 500 MG Buspirone HCl (Buspar Tab) 5 mg BID@0800,1400 PO 09/25/16 08:00 10/25/16 07:59
[2016-09-24] MEDS: CLONAZEPAM 0.5 MG TAB PO SCH (20:49)
[2016-09-24] MEDS: DONEPEZIL HCL 10 MG TAB PO SCH (20:50)
[2016-09-24] MEDS: SIMVASTATIN 10 MG TAB PO SCH (20:50)
[2016-09-25] MEDS: CARBIDOPA/LEVODOPA 25/100MG TAB PO SCH ×6 (06:19→19:45)
[2016-09-25 07:35] VITALS: BP 157/90; PULSE 69; TEMP 37.1; O2SAT 92
[2016-09-25] MEDS: [UNRECOGNIZED DRUG - REMARK] SCH ×2 (08:00→16:00)
[2016-09-25] MEDS: CLOPIDOGREL BISULFATE 75 MG TAB PO SCH (08:01)
[2016-09-25] MEDS: ASPIRIN 81 MG ECTAB PO SCH (08:01)
[2016-09-25] MEDS: LORATADINE 10 MG TAB PO SCH (08:01)
[2016-09-25] MEDS: CEPHALEXIN MONOHYDRATE 500 MG CAP PO SCH ×4 (08:01→19:45)
[2016-09-25] MEDS: VENLAFAXINE HCL XR 150 MG CAPXR PO SCH (08:02)
[2016-09-25] MEDS: PANTOprazole SOD 40 MG TAB PO SCH (08:02)
[2016-09-25] MEDS: NUPLAZID PO SCH (08:03)
[2016-09-25] MEDS: LISINOPRIL 2.5 MG TAB PO SCH (08:03)
[2016-09-25] MEDS: FINASTERIDE 5 MG TAB PO SCH (08:03)
[2016-09-25] MEDS: BUDESONIDE AQ (RHINOCORT AQ) NASAL SPRAY 32 MCG NAE SCH (08:04)
[2016-09-25 15:27] VITALS: BP 118/75; PULSE 67; TEMP 36.8; O2SAT 97
--- NOTE | 2016-09-25 17:08 | Neurology Progress Notes ---
Neurology Progress Note Date of Service Sep 25, 2016. Rai Mixon is a 70 year old male with PMH of dementia, Parkinson's disease, prediabetes, HTN, DL. He was brought to the ED by family due to balance difficulty and altered mental status. He was at baseline 2 weeks prior to the admission when he developed increased balance difficulty, worsening word finding difficulty and nonsensical speech. Has shuffling gait at baseline. reports 3 recent falls- 1st witnessed by , was leaning forward to chart picker dog and lost balance falling onto right side. Second fall was witnessed by in bathroom, was turning, crossed one leg over the other, tripped, went down on left side. He had an unwitnessed fall while wandering onto the neighbor's driveway and was found down on his side by a passerby. AT baseline he has some intermittent word finding difficulty and nonsensical speech but but it had become worse. Pt has chronic tremor and masked facies. Has urinary frequency and incontinence which is worse than baseline for a few weeks. He has not complaints. His Sinemet dose increase late July 2016. His is bedside and states he walked with PT to the nurses station and back to the room x 2 with his walker. Objective Date Time Temp Pulse Resp B/P (MAP) Pulse Ox O2 Delivery O2 Flow Rate FiO2 09/25/16 15:27 36.8 67 18 118/75 (89) 97 Room Air 09/25/16 08:20 Room Air 09/25/16 07:35 37.1 69 16 157/90 (112) 92 Room Air 09/25/16 00:00 Room Air 09/24/16 20:00 Room Air no recent labs Imaging: no recent imaging Exam: Physical Exam: Constitutional: appearance nourished, masked facies, decreased blink frequency Ears, Nose, Mouth and Throat: mucous membranes moist, no injection and skin normal, eyes normal Cardiovascular: normal S-1 and S-2 and regular rate and rhythm Respiratory: clear to auscultation (CTA) and no rales, rhonchi or wheeze Musculoskeletal: no peripheral edema and good distal pulses Skin: no stigmata of neurocutaneous disease noted and normal and intact Eyes: extraocular muscles intact (EOMI) and pupils equal, round and reactive to light (PERRL)decreased blink frequency NEUROLOGIC EXAMINATION: Mental status: Alert and interactive Oriented to person Speech circumstantial, unable to identify his by name Cranial Nerves tongue is midline Coordination finger to nose without bi pass, no essential tremor, mild pill rolling left > right, cogwheeling L>R Gait/Stance: Posture sitting in bed with head forward Strength: hand imcu specialist biceps triceps 5/5 bilaterally, hip flex plantar flex ext 5/5 bilaterally Current Inpatient Medications Medications (Trade) Dose Ordered Sig/Rosa Route Start Time Stop Time Status Last Admin Dose Admin Acetaminophen (Tylenol Tab) 650 mg Q4H PRN PO 09/20/16 15:15 10/20/16 15:14 09/24/16 20:49 650 MG Ondansetron HCl (Zofran Inj) 4 mg Q6H PRN IV 09/20/16 15:15 10/20/16 15:14 Aspirin (Ecotrin Tab) 81 mg DAILY PO 09/21/16 09:00 10/21/16 08:59 09/25/16 08:01 81 MG Budesonide (Rhinocort Aq Nasal [place]) 2 sprays DAILY JOSE 09/21/16 09:00 10/21/16 08:59 09/25/16 08:04 2 SPRAYS Clonazepam (Klonopin Tab) 0.5 mg HS PO 09/20/16 21:00 10/20/16 20:59 09/24/16 20:49 0.5 MG Donepezil HCl (Aricept Tab) 20 mg HS PO 09/21/16 21:00 10/21/16 20:59 09/24/16 20:50 20 MG Finasteride (Proscar Tab) 5 mg DAILY PO 09/21/16 09:00 10/21/16 08:59 09/25/16 08:03 5 MG Lisinopril (Zestril Tab) 2.5 mg DAILY PO 09/21/16 09:00 10/21/16 08:59 09/25/16 08:03 2.5 MG Simvastatin (Zocor Tab) 10 mg HS PO 09/21/16 21:00 10/21/16 20:59 09/24/16 20:50 10 MG Venlafaxine HCl (effeXOR EXTENDED REL CAP) 150 mg QAM PO 09/21/16 09:00 10/21/16 08:59 09/25/16 08:02 150 MG Pantoprazole Sodium (Protonix Tab) 40 mg QAM PO 09/21/16 09:00 10/21/16 08:59 09/25/16 08:02 40 MG Enoxaparin Sodium (Lovenox Inj) 40 mg Q24H SQ 09/20/16 18:00 10/20/16 17:59 09/24/16 18:39 40 MG Clopidogrel Bisulfate (plAVix TAB) 75 mg QAM PO 09/21/16 09:00 10/21/16 08:59 09/25/16 08:01 75 MG Miscellaneous Information (Order Awaiting Action) 1 ea QS N/A 09/21/16 00:00 10/21/16 00:00 Non-Formulary Medication (Non-Formulary Patient'S Own Med) 2 ea DAILY PO 09/22/16 10:00 10/22/16 09:59 09/25/16 08:03 2 EA Loratadine (Claritin Tab) 5 mg QAM PO 09/24/16 08:00 10/24/16 08:59 09/25/16 08:01 5 MG Carbidopa/Levodopa (Sinemet 25/ 100MG Tab) 2 tab TID@0700,1100,1500 PO 09/23/16 15:00 10/23/16 14:59 09/25/16 16:12 2 TAB Carbidopa/Levodopa (Sinemet 25/ 100MG Tab) 1 tab DAILY@1900 PO 09/23/16 19:00 10/23/16 18:59 09/24/16 18:39 1 TAB Cephalexin Monohydrate (Keflex Cap) 500 mg QID PO 09/24/16 08:00 10/04/16 07:59 09/25/16 12:05 500 MG Buspirone HCl (Buspar Tab) 5 mg BID@0800,1400 PO 09/25/16 08:00 10/25/16 07:59 09/25/16 13:48 5 MG Impression 70 year old with increased confusion, and gait difficulty Plan 1. PT/OT and speech for discharge needs 2. continue sinemet 25/100 mg 2 tab-10/31/1499 and 1 tab-1900 3. continue current dosing of Nuplazid 4. aricept 20 mg hs 5. walker for balance issues 6. will see in office as scheduled with Dr Guerra, neurology 7. fall precautions in place I have seen and discussed above patient with Dr Lilia Mazariegos, neurology Discussed with KATEY Phelps. Agree with management. ASHLI Mazariegos MD
[2016-09-25] MEDS: ENOXAPARIN 40 MG/0.4 ML SYR SQ SCH (17:21)
[2016-09-25 19:07] VITALS: BP 130/83; PULSE 68; TEMP 37; O2SAT 98
--- NOTE | 2016-09-25 21:14 | Progress Note ---
Medicine Progress Note Date & Time of Visit: Sep 25, 2016 at 15:00 . Subjective Doing better. Participated in physical therapy today. No fever. Good appetite. No other concerns. . Objective Last 8 Hrs Date Time Temp Pulse Resp B/P (MAP) Pulse Ox O2 Delivery O2 Flow Rate FiO2 09/25/16 19:07 37.0 68 18 130/83 (99) 98 Room Air 09/25/16 16:00 Room Air 09/25/16 15:27 36.8 67 18 118/75 (89) 97 Room Air Physical Exam: General- no acute distress Lungs- clear Heart- RRR Abdomen- + BS, soft, nontender Extremities- no pretibial edema or calf tenderness Neuro- alert, pleasantly confused; PERRL, EOMI; masked facies; resting tremor; moderate cogwheel rigidity upper extremities Skin- erythema surrounding right upper extremity and right lower extremity abrasions improved . Assessment & Plan ALTERED MENTAL STATUS / ATAXIA CT and MRI demonstrated old right cerebellar lesions. No apparent infections that might cause delirium. Neurology consulted. PT / OT. ABRASIONS / CELLULITIS RUE + RLE Afebrile. Received cefazolin with improvement. Transitioned to oral therapy with cephalexin. PARKINSON'S DISEASE Management per Neurology. Sinemet dose adjusted. DEMENTIA Management per Neurology and Psychiatry. PREDIABETES Fasting blood sugars have been less than 120. Follow. BPH Continue finasteride. VTE PROPHYLAXIS SQ enoxaparin. Ambulate. DISPOSITION Will need skilled care or rehabilitation. Case Management consulted. Internal Medicine follow-up with Dr. Andrade. . Consultants: Neurology . Procedures: Cardiac monitoring CT head CT brain MRA head MRA brain Echocardiogram EEG Intravenous medications PT OT . Current Inpatient Medications: Current Inpatient Medications Medications (Trade) Dose Ordered Sig/Rosa Route Start Time Stop Time Status Last Admin Dose Admin Acetaminophen (Tylenol Tab) 650 mg Q4H PRN PO 09/20/16 15:15 10/20/16 15:14 09/24/16 20:49 650 MG Ondansetron HCl (Zofran Inj) 4 mg Q6H PRN IV 09/20/16 15:15 10/20/16 15:14 Aspirin (Ecotrin Tab) 81 mg DAILY PO 09/21/16 09:00 10/21/16 08:59 09/25/16 08:01 81 MG Budesonide (Rhinocort Aq Nasal [place]) 2 sprays DAILY JOSE 09/21/16 09:00 10/21/16 08:59 09/25/16 08:04 2 SPRAYS Clonazepam (Klonopin Tab) 0.5 mg HS PO 09/20/16 21:00 10/20/16 20:59 09/24/16 20:49 0.5 MG Donepezil HCl (Aricept Tab) 20 mg HS PO 09/21/16 21:00 10/21/16 20:59 09/24/16 20:50 20 MG Finasteride (Proscar Tab) 5 mg DAILY PO 09/21/16 09:00 10/21/16 08:59 09/25/16 08:03 5 MG Lisinopril (Zestril Tab) 2.5 mg DAILY PO 09/21/16 09:00 10/21/16 08:59 09/25/16 08:03 2.5 MG Simvastatin (Zocor Tab) 10 mg HS PO 09/21/16 21:00 10/21/16 20:59 09/24/16 20:50 10 MG Venlafaxine HCl (effeXOR EXTENDED REL CAP) 150 mg QAM PO 09/21/16 09:00 10/21/16 08:59 09/25/16 08:02 150 MG Pantoprazole Sodium (Protonix Tab) 40 mg QAM PO 09/21/16 09:00 10/21/16 08:59 09/25/16 08:02 40 MG Enoxaparin Sodium (Lovenox Inj) 40 mg Q24H SQ 09/20/16 18:00 10/20/16 17:59 09/25/16 17:21 40 MG Clopidogrel Bisulfate (plAVix TAB) 75 mg QAM PO 09/21/16 09:00 10/21/16 08:59 09/25/16 08:01 75 MG Miscellaneous Information (Order Awaiting Action) 1 ea QS N/A 09/21/16 00:00 10/21/16 00:00 Non-Formulary Medication (Non-Formulary Patient'S Own Med) 2 ea DAILY PO 09/22/16 10:00 10/22/16 09:59 09/25/16 08:03 2 EA Loratadine (Claritin Tab) 5 mg QAM PO 09/24/16 08:00 10/24/16 08:59 09/25/16 08:01 5 MG Carbidopa/Levodopa (Sinemet 25/ 100MG Tab) 2 tab TID@0700,1100,1500 PO 09/23/16 15:00 10/23/16 14:59 09/25/16 16:12 2 TAB Carbidopa/Levodopa (Sinemet 25/ 100MG Tab) 1 tab DAILY@1900 PO 09/23/16 19:00 10/23/16 18:59 09/25/16 19:45 1 TAB Cephalexin Monohydrate (Keflex Cap) 500 mg QID PO 09/24/16 08:00 10/04/16 07:59 09/25/16 19:45 500 MG Buspirone HCl (Buspar Tab) 5 mg BID@0800,1400 PO 09/25/16 08:00 10/25/16 07:59 09/25/16 13:48 5 MG
[2016-09-25] MEDS: CLONAZEPAM 0.5 MG TAB PO SCH (21:50)
[2016-09-25] MEDS: SIMVASTATIN 10 MG TAB PO SCH (21:50)
[2016-09-25] MEDS: DONEPEZIL HCL 10 MG TAB PO SCH (21:50)
[2016-09-26 00:08] VITALS: BP 144/92; PULSE 71; TEMP 36.7; O2SAT 96
[2016-09-26] MEDS: CARBIDOPA/LEVODOPA 25/100MG TAB PO SCH ×2 (06:06→11:46)
[2016-09-26 07:43] VITALS: BP 135/76; PULSE 58; TEMP 36.6; O2SAT 95
[2016-09-26] MEDS: [UNRECOGNIZED DRUG - REMARK] SCH ×2 (08:00→08:14)
[2016-09-26] MEDS: BUDESONIDE AQ (RHINOCORT AQ) NASAL SPRAY 32 MCG NAE SCH (08:14)
[2016-09-26] MEDS: ASPIRIN 81 MG ECTAB PO SCH (08:14)
[2016-09-26] MEDS: CLOPIDOGREL BISULFATE 75 MG TAB PO SCH (08:14)
[2016-09-26] MEDS: FINASTERIDE 5 MG TAB PO SCH (08:14)
[2016-09-26] MEDS: PANTOprazole SOD 40 MG TAB PO SCH (08:15)
[2016-09-26] MEDS: LISINOPRIL 2.5 MG TAB PO SCH (08:15)
[2016-09-26] MEDS: CEPHALEXIN MONOHYDRATE 500 MG CAP PO SCH ×2 (08:16→11:46)
[2016-09-26] MEDS: VENLAFAXINE HCL XR 150 MG CAPXR PO SCH (08:16)
[2016-09-26] MEDS: LORATADINE 10 MG TAB PO SCH (08:16)
[2016-09-26] MEDS: NUPLAZID PO SCH (08:17)
--- NOTE | 2016-09-26 10:26 | Progress Note ---
Medicine Progress Note Date & Time of Visit: Sep 26, 2016 at ~ 10:00 . Subjective Doing well. Alert. Ambulating with walker and assistance. Good appetite. . Objective Last 8 Hrs Date Time Temp Pulse Resp B/P (MAP) Pulse Ox O2 Delivery O2 Flow Rate FiO2 09/26/16 07:43 36.6 58 20 135/76 (95) 95 Room Air Physical Exam: General- sitting in chair; no acute distress Lungs- clear Heart- RRR Abdomen- + BS, soft, nontender Extremities- no pretibial edema or calf tenderness Neuro- alert, pleasantly confused; PERRL, EOMI; masked facies; resting tremor; moderate cogwheel rigidity upper extremities Skin- healing abrasions RUE, erythema resolved . Assessment & Plan ALTERED MENTAL STATUS / ATAXIA Neurology consulted. CT and MRI demonstrated old right cerebellar lesions. Had mild cellulitis of RUE and RLE- ? precipitating cause of delirium. No evidence for pneumonia, UTI. PT / OT performed. Mental status and gait improved by discharge. CEREBROVASCULAR DISEASE CT and MRI demonstrated old right cerebellar lesions. Continue ASA. LDL-calc = 43. Continue simvastatin. ABRASIONS / CELLULITIS RUE + RLE Afebrile. Received cefazolin with improvement. Transitioned to oral therapy with cephalexin. PARKINSON'S DISEASE Management per Neurology. Sinemet dose adjusted. DEMENTIA Management per Neurology and Psychiatry. PREDIABETES Fasting blood sugars have been less than 120. Follow. BPH Has chronic urinary incontinence. Adult diapers. Continue finasteride. Add tamsulosin HS (watch for orthostasis). VTE PROPHYLAXIS SQ enoxaparin. Ambulate. DISPOSITION Needs skilled care. Case Management consulted. Arrangements being made for transfer to [facility]. Internal Medicine follow-up with Dr. Andrade. Neurology follow-up with Dr. Guerra. . Consultants: Neurology . Procedures: Cardiac monitoring CT head CT brain MRA head MRA brain Echocardiogram EEG Intravenous medications PT OT . Current Inpatient Medications: Current Inpatient Medications Medications (Trade) Dose Ordered Sig/Rosa Route Start Time Stop Time Status Last Admin Dose Admin Acetaminophen (Tylenol Tab) 650 mg Q4H PRN PO 09/20/16 15:15 10/20/16 15:14 09/24/16 20:49 650 MG Ondansetron HCl (Zofran Inj) 4 mg Q6H PRN IV 09/20/16 15:15 6/30/17 15:14 Aspirin (Ecotrin Tab) 81 mg DAILY PO 09/21/16 09:00 10/21/16 08:59 09/26/16 08:14 81 MG Budesonide (Rhinocort Aq Nasal [place]) 2 sprays DAILY JOSE 09/21/16 09:00 10/21/16 08:59 09/26/16 08:14 2 SPRAYS Clonazepam (Klonopin Tab) 0.5 mg HS PO 09/20/16 21:00 10/20/16 20:59 09/25/16 21:50 0.5 MG Donepezil HCl (Aricept Tab) 20 mg HS PO 09/21/16 21:00 10/21/16 20:59 09/25/16 21:50 20 MG Finasteride (Proscar Tab) 5 mg DAILY PO 09/21/16 09:00 10/21/16 08:59 09/26/16 08:14 5 MG Lisinopril (Zestril Tab) 2.5 mg DAILY PO 09/21/16 09:00 10/21/16 08:59 09/26/16 08:15 2.5 MG Simvastatin (Zocor Tab) 10 mg HS PO 09/21/16 21:00 10/21/16 20:59 09/25/16 21:50 10 MG Venlafaxine HCl (effeXOR EXTENDED REL CAP) 150 mg QAM PO 09/21/16 09:00 10/21/16 08:59 09/26/16 08:16 150 MG Pantoprazole Sodium (Protonix Tab) 40 mg QAM PO 09/21/16 09:00 10/21/16 08:59 09/26/16 08:15 40 MG Enoxaparin Sodium (Lovenox Inj) 40 mg Q24H SQ 09/20/16 18:00 10/20/16 17:59 09/25/16 17:21 40 MG Clopidogrel Bisulfate (plAVix TAB) 75 mg QAM PO 09/21/16 09:00 10/21/16 08:59 09/26/16 08:14 75 MG Miscellaneous Information (Order Awaiting Action) 1 ea QS N/A 09/21/16 00:00 10/21/16 00:00 Non-Formulary Medication (Non-Formulary Patient'S Own Med) 2 ea DAILY PO 09/22/16 10:00 10/22/16 09:59 09/26/16 08:17 2 EA Loratadine (Claritin Tab) 5 mg QAM PO 09/24/16 08:00 10/24/16 08:59 09/26/16 08:16 5 MG Carbidopa/Levodopa (Sinemet 25/ 100MG Tab) 2 tab TID@0700,1100,1500 PO 09/23/16 15:00 10/23/16 14:59 09/26/16 06:06 2 TAB Carbidopa/Levodopa (Sinemet 25/ 100MG Tab) 1 tab DAILY@1900 PO 09/23/16 19:00 10/23/16 18:59 09/25/16 19:45 1 TAB Cephalexin Monohydrate (Keflex Cap) 500 mg QID PO 09/24/16 08:00 10/04/16 07:59 09/26/16 08:16 500 MG Buspirone HCl (Buspar Tab) 5 mg BID@0800,1400 PO 09/25/16 08:00 10/25/16 07:59 09/26/16 08:15 5 MG
[2016-09-26] MEDS ORDERED: FLM4 PO (10:46)
[2016-09-26] MEDS ORDERED: KFL500 PO (10:46)
--- NOTE | 2016-09-26 11:00 | Discharge Instructions ---
Discharge Instructions Date of Service Sep 26, 2016. Admission Reason for Admission: Ataxia, Change In Mental Status Discharge Discharge Diagnosis / Problem: altered mental status, ambulatory dysfunction Discharge Goals Goal(s): Improve function, Improve disease control Activity Recommendations Activity Level: Assistance Required (with walker) Therapies: Physical Therapy, Occupational Therapy, Speech Therapy . Additional Information Patient informed of condition: Yes Advance Directives: Yes DNR: Yes Level of Care: Skilled Communicable Disease: No Prognosis: Improving Ocampo Catheter: No Current Hospital Diet Patient's current hospital diet: AHA Diet (Heart Healthy), Diabetes Type 2 Diet Discharge Diet Recommended Diet: AHA Diet (Heart Healthy), Low Lactose Diet Diet Texture: Dental Soft (bite-sized) Pending Studies Studies pending at discharge: no Physician Orders On Transfer Special Precautions: fall precautions aspiration precautions . Vital Signs: routine . Weigh: routine . Additional Orders: Adult diapers. Prompted voiding q 4 hrs while awake. Please check morning orthostatic vital signs weekly. DC tamsulosin if systolic BP falls more than 20 mm. Passive ROM upper and lower extremities TID. . Laboratory Results Hemoglobin A1c Test 09/20/16 11:57 Range/Units Estimated Average Glucose 134 mg/dl Hemoglobin A1c 6.3 H 4.5-5.6 % Lipid Panel Test 09/21/16 06:55 Range/Units Triglycerides Level 132 0-150 mg/dl Cholesterol Level 109 0-200 mg/dl HDL Cholesterol 40 mg/dl Cholesterol/HDL Ratio 2.7 LDL Cholesterol, Calculated 43 mg/dl Medical Emergencies . Who to Call and When: Medical Emergencies: If at any time you feel your situation is an emergency, please call 911 immediately. . Non-Emergent Contact Non-Emergency issues call your: Primary Care Provider, Neurologist . . "Provider Documentation" section prepared by Ahsan Pena. . Core Measure Problem Core Measures: None
--- NOTE | 2016-09-26 11:03 | Discharge Summary ---
Discharge Summary Date of Service Sep 26, 2016. Discharge Summary Admission Date: September 20, 2016 at 14:41 Discharge Date: Sep 26, 2016 Discharge Disposition: group home facility ([facility]) Principal Diagnosis: altered mental status . Secondary Diagnoses/Problems: Other Acute Medical Problems: ambulatory dysfunction cellulitis RUE + RLE Chronic and Resolve Medical Problems: (1) BPH w urinary obs/LUTS Status: Chronic (2) CVA (cerebral vascular accident) (old cerebellar infarcts noted on CT & MRI ) Status: Chronic (3) Dementia Permanent Comment: Parkinson's disease with dementia vs Lewy body dementia Status: Chronic (4) Depression with anxiety Status: Chronic (5) Dyslipidemia Status: Chronic (6) GERD (gastroesophageal reflux disease) Status: Chronic (7) History of pneumonia Status: Chronic (8) Kidney stone Status: Resolved (9) Malignant melanoma Permanent Comment: left ear, s/p surgery (11) Metabolic syndrome Status: Chronic (13) Parkinsons disease Status: Chronic (14) Pre-diabetes Permanent Comment: diet controlled Status: Chronic (15) RBBB Status: Chronic Surgical Problems: (1) H/O cystoscopy Status: Chronic (2) H/O hernia repair Status: Resolved (3) H/O hernia repair Status: Chronic (4) S/p lumbar hemilaminectomy Status: Chronic . Procedures: Cardiac monitoring CT head CT brain MRA head MRA brain Echocardiogram EEG Intravenous medications PT OT . Consultations: Neurology . Medication Reconciliation New Medications: Tamsulosin HCl (Tamsulosin HCl) 0.4 Mg Cap 0.4 MG PO HS for 30 Days New prescription. Please give Rx at time of DC from your facility if doing well on it. Cephalexin Monohydrate (Cephalexin) 500 Mg Cap 500 MG PO QID for 3 Days, CAP Continued Medications: Aspirin (Aspirin Ec) 81 Mg Tab 81 MG PO DAILY Budesonide (Rhinocort Aqua) 120 Sprays/3840 Mcg [place] 2 SPRAYS JOSE DAILY Buspirone Hcl (Buspirone Hcl) 5 Mg Tab 1 TAB PO BID PRN for Anxiety, TAB Carbidopa/Levodopa (Sinemet 25MG/100MG) Tab 2 TAB PO TID, TAB Carbidopa/Levodopa (Sinemet 25MG/100MG) Tab 1 TAB PO HS, TAB Clobetasol Propionate (Temovate) 0.05 % Cre 1 APPLN TOP BID, GM APPLY TO IRRITATED SCALP Clonazepam (Klonopin) 0.5 Mg Tab 0.5 MG PO HS, TAB Donepezil Hydrochloride (Aricept) 10 Mg Tab 2 TAB PO HS, TAB Finasteride (Proscar) 5 Mg Tab 5 MG PO DAILY, TAB Ibuprofen (Ibuprofen) 200 Mg Cap 200 MG PO HS Lisinopril (Lisinopril) 2.5 Mg Tab 1 TAB PO DAILY, TAB Loratadine (Claritin) 10 Mg Tab 5 MG PO DAILY Omeprazole (Prilosec) 40 Mg Cap 40 MG PO DAILY, CAP Pimavanserin Tartrate (Nuplazid) 17 Mg Tab 2 TAB PO DAILY Simvastatin (Zocor) 10 Mg Tab 10 MG PO HS, TAB Venlafaxine Hcl (Effexor Xr) 150 Mg Cap 1 CAP PO QAM, CAP Admission Information HPI (per Admitting provider): This is a 70 year old male with PMH of dementia, Parkinson's disease, prediabetes, HTN, HL, and other problems listed below who is brought to the ED by his family for balance difficulty and altered mental status. Hx unobtainable from the patient due to AMS. Per , patient was at baseline until 2 weeks ago when he developed increased balance difficulty, worsening word finding difficulty and nonsensical speech. Has shuffling gait at baseline, supposed to use walker but refuses. 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 Second fall was witnessed by in bathroom, was turning, crossed one leg over the other, tripped, went down on left side. Third fall was 2 days ago, unwitnessed, patient had wandered to neighbor's driveway and was found down on his side by a passerby. No known head trauma. Has not complained of EASON or muscle/ joint pain. Has abrasions on right hand and right knee. Patient can state his name but otherwise not able to answer orientation questions appropriately. Family states at baseline he has intermittent word finding difficulty and nonsensical speech but for past 2 weeks is worse. Pt has chronic tremor and masked facies. Has urinary frequency and incontinence which is worse than baseline for a few weeks. Family denies fever, chills, cough, URI symptoms, slurred speech, unilateral facial droop, swallowing difficulty, focal weakness or numbness, LOC , complaints of dizziness, complaints of chest pain, SOB, abdominal pain, N/V, diarrhea. No recent hallucinations. Eating normally and taking in meds. Last medication change was Sinemet dose increase late July 2016. No hx TIA or CVA. . Physical Exam (per Admitting): General Appearance: + pertinent finding Head: normocephalic, atraumatic Eyes: normal inspection, PERRL, EOMI, sclerae normal ENT: hearing grossly normal, pharynx normal Neck: supple, trachea midline Respiratory/Chest: lungs clear, normal breath sounds, no respiratory distress, no accessory muscle use Cardiovascular: regular rate, rhythm, no murmur Abdomen/GI: normal bowel sounds, non tender, soft Extremities/Musculoskelatal: no calf tenderness, no pedal edema, + pertinent finding Neurologic/Psych: alert, normal mood/affect, + pertinent finding Skin: normal color, warm/dry, + pertinent finding Hospital Course ALTERED MENTAL STATUS / ATAXIA Neurology consulted. CT and MRI demonstrated old right cerebellar lesions. Had mild cellulitis of RUE and RLE- ? precipitating cause of delirium. No evidence for pneumonia, UTI. PT / OT performed. Mental status and gait improved by discharge. CEREBROVASCULAR DISEASE CT and MRI demonstrated old right cerebellar lesions. Continue ASA. LDL-calc = 43. Continue simvastatin. ABRASIONS / CELLULITIS RUE + RLE Afebrile. Received cefazolin with improvement. Transitioned to oral therapy with cephalexin. PARKINSON'S DISEASE Management per Neurology. Sinemet dose adjusted. DEMENTIA Management per Neurology and Psychiatry. PREDIABETES Fasting blood sugars have been less than 120. Follow. BPH Has chronic urinary incontinence. Adult diapers. Continue finasteride. Add tamsulosin HS (watch for orthostasis). VTE PROPHYLAXIS SQ enoxaparin. Ambulate. DISPOSITION Needs skilled care. Case Management consulted. Arrangements being made [facility]. Internal Medicine follow-up with Dr. Andrade. Neurology follow-up with Dr. Guerra. . Total time spent on discharge = 40 min. This includes examination of the patient, discharge planning, medication reconciliation, and communication with other providers. . Discharge Instructions Date of Service Sep 26, 2016. Admission Reason for Admission: Ataxia, Change In Mental Status Discharge Discharge Diagnosis / Problem: altered mental status, ambulatory dysfunction Discharge Goals Goal(s): Improve function, Improve disease control Activity Recommendations Activity Level: Assistance Required (with walker) Therapies: Physical Therapy, Occupational Therapy, Speech Therapy . Additional Information Patient informed of condition: Yes Advance Directives: Yes DNR: Yes Level of Care: Skilled Communicable Disease: No Prognosis: Improving Ocampo Catheter: No Current Hospital Diet Patient's current hospital diet: AHA Diet (Heart Healthy), Diabetes Type 2 Diet Discharge Diet Recommended Diet: AHA Diet (Heart Healthy), Low Lactose Diet Diet Texture: Dental Soft (bite-sized) Pending Studies Studies pending at discharge: no Physician Orders On Transfer Special Precautions: fall precautions aspiration precautions . Vital Signs: routine . Weigh: routine . Additional Orders: Adult diapers. Prompted voiding q 4 hrs while awake. Please check morning orthostatic vital signs weekly. DC tamsulosin if systolic BP falls more than 20 mm. Passive ROM upper and lower extremities TID. . Laboratory Results Hemoglobin A1c Test 09/20/16 11:57 Range/Units Estimated Average Glucose 134 mg/dl Hemoglobin A1c 6.3 H 4.5-5.6 % Lipid Panel Test 09/21/16 06:55 Range/Units Triglycerides Level 132 0-150 mg/dl Cholesterol Level 109 0-200 mg/dl HDL Cholesterol 40 mg/dl Cholesterol/HDL Ratio 2.7 LDL Cholesterol, Calculated 43 mg/dl Medical Emergencies . Who to Call and When: Medical Emergencies: If at any time you feel your situation is an emergency, please call 911 immediately. . Non-Emergent Contact Non-Emergency issues call your: Primary Care Provider, Neurologist . . Thank you for receiving this patient in transfer. Please call if you have any questions. Ahsan Pena "Provider Documentation" section prepared by Ahsan Pena. . Additional Copies To Jae Andrade MD; Ahsan Guerra M.D. (MEDICINE)
[2016-09-26] MEDS ORDERED: KLN5 PO (13:45)
[2016-09-26 14:47] VITALS: BP 121/69; PULSE 74; TEMP 36.8; O2SAT 93
--- NOTE | 2016-09-27 09:13 | EDITING REQUIRED CODING QUERY ---
CODING QUERY To promote full compliance with coding requirements relating to patient care, provider participation is requested in all cases of television operator uncertainty. Please assist us with the question(s) below: Coding Question(s): Patient brought to the ED due to ataxia and altered mental status. Previous Diagnosis' Parkinson's Disease and Dementia. Radiology = old right cerebellar lesion. Please document, if known or suspected, the etiology of patient's ataxia and altered mental status. Thank you! Art Peña [facility] Physician's Response(s): Etiology not apparent. Principal Diagnosis: "_that condition established after study, to be chiefly responsible for occasioning the admission of the patient to the hospital for care." Co-Existing Principal Diagnosis: "_when two or more diagnoses equally meet the criteria for principal diagnosis as determined by the circumstances of admission, diagnostic work up, and/or therapy provided, and the Alphabetic Index, Tabular List, or another coding guideline does not provide sequencing direction, any one of the diagnoses may be sequenced first." "When the physician has documented what appears to be a current diagnosis in the body of the record, but has not included the diagnosis in the final diagnostic statement, the physician should be asked whether the diagnosis should be added." (Source [facility]oding [facility] 2 QTR90. p3-4)
[2016-11-03] MEDS ORDERED: CARB25TA12 PO ×2 (07:12→13:44)
[2016-11-03] MEDS ORDERED: SIMV10TA5 PO (08:09)
[2016-11-03] MEDS ORDERED: OMEP40CA41 PO (08:09)
[2016-11-03] MEDS ORDERED: FINA5TAB4 PO (08:09)
[2016-11-03] MEDS ORDERED: CLON0.5T3 PO (08:09)
[2016-11-03] MEDS ORDERED: CLR10 PO (10:28)
[2016-11-03] MEDS ORDERED: PIMA17TA PO (13:44)
[2016-11-03] MEDS ORDERED: DONE10TA12 PO (13:44)
[2016-11-03] MEDS ORDERED: BUSP5TAB59 PO (13:44)
[2016-11-03] MEDS ORDERED: ASPI81TA28 PO (13:44)
[2016-11-03] MEDS ORDERED: LISI2.5T5 PO (13:44)
[2016-11-03] MEDS ORDERED: VENL150C PO (13:45)
[2016-11-03] MEDS ORDERED: IBUP1CAP9 PO (14:45)
[2016-11-10] MEDS ORDERED: BUSP1TAB46 PO (15:32)
[2016-11-10] MEDS ORDERED: SRQ25 PO (15:32)
[2016-11-10] MEDS ORDERED: CLON0.5T3 PO (15:32)
== END 2016-09-26 15:27 | DRG 92 ==
LOC: ENRESERVDT → ENRESERVTM → C.EDB 11:23 → C.2T 14:41 → C.4E 09-23 16:52 → ENRESERV 09-23 17:13
PROVIDERS: ADMIT Hospitalist; ATTEND Hospitalist
DX: R27.0 Ataxia, unspecified (principal); G20 Parkinson's disease; L03.115 Cellulitis of right lower limb; L03.113 Cellulitis of right upper limb; S60.511A Abrasion of right hand, initial encounter; S60.221A Contusion of right hand, initial encounter; S80.211A Abrasion, right knee, initial encounter; N40.1 Benign prostatic hyperplasia with lower urinary tract symptoms; G31.83 Neurocognitive disorder with Lewy bodies; F02.80 Dementia in other diseases classified elsewhere, unspecified severity, without behavioral disturbance, psychotic disturbance, mood disturbance, and anxiety; F32.9 Major depressive disorder, single episode, unspecified; E78.5 Hyperlipidemia, unspecified; Z85.820 Personal history of malignant melanoma of skin; E88.81 Metabolic syndrome and other insulin resistance; Z83.3 Family history of diabetes mellitus; I10 Essential (primary) hypertension; Z87.891 Personal history of nicotine dependence; R73.03 Prediabetes; F03.90 Unspecified dementia, unspecified severity, without behavioral disturbance, psychotic disturbance, mood disturbance, and anxiety; R32 Unspecified urinary incontinence; W19.XXXA Unspecified fall, initial encounter; Y92.009 Unspecified place in unspecified non-institutional (private) residence as the place of occurrence of the external cause

== ENCOUNTER 2016-11-03 19:08 | Inpatient (IN) | payer OTHER ==
[~2016-11-03] VITALS: Ht 182.9 cm; Wt 89.6 kg
[~2016-11-03 19:08] MED LIST changes: +ASPI81TA28 PO; -BENZ100C6 PO; +BUSP5TAB59 PO; +CARB25TA12 PO; +CLOB-77 TOP; +CLON0.5T3 PO; +CLR10 PO; +DONE10TA12 PO; -DULO-24 PO; +FINA5TAB4 PO; +FLM4 PO; +IBUP1CAP9 PO; +KFL500 PO; +KLN5 PO; +LISI2.5T5 PO; +OMEP40CA41 PO; -OXAP600T2 PO; +PIMA17TA PO; +RHNAQIN NAE; +SIMV10TA5 PO; -TAMS0.4C59 PO; +VENL150C PO
[2016-11-03] MEDS ORDERED: SODIUM CHLORIDE 0.9% 500ML 500 ML IV STA (19:41)
--- NOTE | 2016-11-03 19:43 | EMERGENCY ROOM VISIT NOTE ---
History Report prepared by Ricki: Vivienne Abbott Under the Supervision of: Dr. Eulalio Rodriguez M.D. First contact with patient: 19:32 Chief Complaint: ALTERED MENTAL STATUS Stated Complaint: SEVERE CONFUSION,BELLIGERENCE,THREATENING BEHAVIOR History of Present Illness The patient is a 70 year old male who presents to the Emergency Room with complaints of constant altered mental status beginning 1 week ago. The patient' s states that the patient has a history of Parkinson's disease. She notes that he was was seen here last month after a fall and was in rehab before being released home 2 weeks ago. She reports that his medications were changed during his stay and he was doing well until slightly after he came home. She notes that the patient has become increasingly more confused, agitated, aggressive, and belligerent. The states that he is not making any sense. Source of History: spouse/significant other Onset: 1 week ago Position: other (global) Quality: other (AMS) Timing: constant, worsening Note: Pt is confused, aggressive, belligerent, and nonsensical. Review of Systems See HPI for pertinent positives & negatives. A total of 10 systems reviewed and were otherwise negative. Past Medical & Surgical Medical Problems: (1) Ataxia (2) BPH w urinary obs/LUTS (3) CVA (cerebral vascular accident) (4) Dementia (5) Depression with anxiety (6) Dyslipidemia (7) GERD (gastroesophageal reflux disease) (8) History of pneumonia (9) Kidney stone (10) Malignant melanoma (11) Melanoma (12) Metabolic syndrome (13) Parkinson disease (14) Pre-diabetes (15) RBBB Surgical Problems: (1) H/O cystoscopy (2) H/O hernia repair (3) H/O hernia repair (4) S/p lumbar hemilaminectomy Social History Problems: (1) Parkinsons disease Family History Cancer Diabetes mellitus Social History Smoking Status: Never Smoker Alcohol Use: occasionally Marital Status: Housing Status: lives with significant other Current/Historical Medications Scheduled Aspirin (Aspirin Ec), 81 MG PO DAILY Budesonide (Nasal) (Rhinocort Allergy), 2 SPRAYS JOSE DAILY Buspirone Hcl (Buspirone Hcl), 7.5 MG PO TID Carbidopa/Levodopa (Sinemet 25MG/100MG), 2 TAB PO TID Carbidopa/Levodopa (Sinemet 25MG/100MG), 1 TAB PO HS Cholecalciferol (Vitamin D3), 1 TAB PO DAILY Clonazepam (Klonopin), 0.5 MG PO HS Donepezil Hydrochloride (Aricept), 20 MG PO HS Finasteride (Proscar), 5 MG PO DAILY Lisinopril (Lisinopril), 1 TAB PO DAILY Loratadine (Claritin), 5 MG PO DAILY Omeprazole (Prilosec), 40 MG PO DAILY Pimavanserin Tartrate (Nuplazid), 2 TAB PO DAILY Simvastatin (Zocor), 10 MG PO HS Tamsulosin Hcl (Flomax), 0.4 MG PO DAILY Venlafaxine Hcl (Effexor Xr), 1 CAP PO QAM Venlafaxine Hcl (Venlafaxine Extended Rel), 75 MG PO DAILY Allergies Coded Allergies: Oxybutynin (Verified Allergy, Unknown, HALLUCINATIONS,CHANGE IN MENTATION , 09/20/16) Tramadol (Verified Allergy, Unknown, SHORTNESS OF BREATH, 09/20/16) Physical Exam Vital Signs Date Time Temp Pulse Resp B/P (MAP) Pulse Ox O2 Delivery O2 Flow Rate FiO2 11/03/16 22:14 64 16 129/78 96 Room Air 11/03/16 21:08 63 16 114/64 97 Room Air 68 106/71 11/03/16 20:57 63 20 142/78 97 Room Air 11/03/16 20:09 65 11/03/16 19:43 96 Room Air 11/03/16 19:43 96 Room Air 11/03/16 19:18 36.5 73 18 125/78 95 Room Air Physical Exam GENERAL: Patient is a healthy-appearing well-nourished male HEAD: Normocephalic atraumatic EYES: Ocular movements intact pupils equal and react to light OROPHARYNX mucous membranes are moist no exudates present no erythema or edema present NECK: Supple no nuchal rigidity CHEST: Good equal expansion LUNGS: Clear and equal to auscultation CARDIAC: Normal S1 and S2 ABDOMEN: Soft nontender no guarding BACK: No CVA tenderness EXTREMITIES: No pain upon palpation normal muscle strength in all groups no clubbing cyanosis or edema NEURO: The patient is confused and does not know the month, poor at following directions Medical Decision & Procedures ER Provider Diagnostic Interpretation: Radiology results as stated below per my review and radiologist interpretation: HEAD WITHOUT CONTRAST (CT) Findings: Moderate mucosal thickening ethmoid sinuses. The mastoid air cells are clear. No lytic or blastic process. The calvarium and skull base are intact. The ventricles and sulci are within normal limits. There is no mass, hematoma, midline shift, or acute infarct. Several small old cerebellar infarcts which have been described previously Impression: No acute intracranial abnormality. Moderate mucosal thickening ethmoid sinuses The above report was generated using voice recognition software. It may contain grammatical, syntax or spelling errors. Electronically signed by: Fredy Coelho M.D. 11/03/2016 8:41 PM Dictated Date/Time: 11/03/2016 8:39 PM CHEST ONE VIEW PORTABLE FINDINGS: Mild stable cardiomegaly. Diaphragms smooth. Lungs are clear. IMPRESSION: Mild stable cardiomegaly. No acute process. The above report was generated using voice recognition software. It may contain grammatical, syntax or spelling errors. Electronically signed by: Fredy Coelho M.D. 11/03/2016 8:20 PM Dictated Date/Time: 11/03/2016 8:19 PM Laboratory Results Test 11/03/16 19:50 11/03/16 20:16 11/03/16 21:00 Immature Granulocyte % (Auto) 0.2 % White Blood Count 5.96 K/uL (4.8-10.8) Red Blood Count 4.76 M/uL (4.7-6.1) Hemoglobin 14.5 g/dL (14.0-18.0) Hematocrit 45.0 % (42-52) Mean Corpuscular Volume 94.5 fL (80-100) Mean Corpuscular Hemoglobin 30.5 pg (25-34) Mean Corpuscular Hemoglobin Concent 32.2 g/dl (32-36) Platelet Count 178 K/uL (130-400) Mean Platelet Volume 10.0 fL (7.4-10.4) Neutrophils (%) (Auto) 64.2 % Lymphocytes (%) (Auto) 24.0 % Monocytes (%) (Auto) 7.2 % Eosinophils (%) (Auto) 3.9 % Basophils (%) (Auto) 0.5 % Neutrophils # (Auto) 3.83 K/uL (1.4-6.5) Lymphocytes # (Auto) 1.43 K/uL (1.2-3.4) Monocytes # (Auto) 0.43 K/uL (0.11-0.59) Eosinophils # (Auto) 0.23 K/uL (0-0.5) Basophils # (Auto) 0.03 K/uL (0-0.2) Immature Granulocyte # (Auto) 0.01 K/uL (0.00-0.02) Total Bilirubin 0.5 mg/dl (0.2-1) Direct Bilirubin 0.1 mg/dl (0-0.2) Aspartate Amino Transf (AST/SGOT) 10 U/L (15-37) Alanine Aminotransferase (ALT/SGPT) 12 U/L (12-78) Alkaline Phosphatase 72 U/L (45-117) Total Creatine Kinase 55 U/L (39-308) Creatine Kinase MB 1.0 ng/ml (0.5-3.6) Creatine Kinase MB Ratio 1.8 (0-3.0) Troponin I < 0.015 ng/ml (0-0.045) Total Protein 6.4 gm/dl (6.4-8.2) Albumin 3.4 gm/dl (3.4-5.0) Thyroid Stimulating Hormone (TSH) 0.807 uIu/ml (0.300-4.500) Bedside Glucose 191 mg/dl (70-99) Urine Color YELLOW Urine Appearance CLEAR (CLEAR) Urine pH 5.5 (4.5-7.5) Urine Specific [place] 1.024 (1.000-1.030) Urine Protein NEG (NEG) Urine Glucose (UA) 1+ (NEG) Urine Ketones TRACE (NEG) Urine Occult Blood NEG (NEG) Urine Nitrite NEG (NEG) Urine Bilirubin NEG (NEG) Urine Urobilinogen NEG (NEG) Urine Leukocyte Esterase NEG (NEG) Labs reviewed by ED physician. Medications Administered Medications (Trade) Dose Ordered Sig/Rosa Route Start Time Stop Time Status Last Admin Dose Admin Sodium Chloride 500 ml @ 999 mls/hr Q31M STAT IV 11/03/16 19:41 11/03/16 20:11 DC 11/03/16 20:13 999 MLS/HR ECG Indication: altered mental status Rate (beats per minute): 64 Rhythm: normal sinus Findings: no acute ischemic change, no ectopy ED Course 1934: Past medical records reviewed. The patient was evaluated in room C5. A complete history and physical examination was performed. 1940: Sodium Chloride 500 ml @ 999 mls/hr IV. 2121: I discussed the patient's case with Dr. Rodríguez, she has agreed to evaluate the patient for further management and care. 2131: Upon reexamination the patient is doing well. I discussed results and treatment plan with the patient. He verbalizes agreement and understanding. I spoke with Dr. Rodríguez from the [facility]. The patient will be evaluated for further management. Medical Decision Differential diagnosis: Etiologies such as metabolic, infection, hypoglycemia, electrolyte abnormalities , cardiac sources, intracerebral event, toxicologic, neurologic, as well as others were entertained. Medication Reconciliation: I attest that I have personally reviewed the patient' s current medication list Blood Pressure Screening: Patient was found to have normal blood pressure on screening and does not require follow up. This is a 70-year-old male who presents emergency department with threatening behavior to his . The patient has a history of dementia and Parkinson's disease and has become very unruly with his . She is having a difficult time controlling him and therefore brought him to the emergency department. I will note that the patient does not have an elevation in his white blood count normal renal profile is normal liver profile. CAT scan of the head as well as chest x-ray and urine are all normal. I do feel that the patient should be admitted pending placement. Family was in agreement with the treatment plan. Consults Time Called: 2119 Consulting Physician: Dr. Rodríguez - Kristopher Returned Call: 2121 I discussed the patient's case with Dr. Rodríguez, she has agreed to evaluate the patient for further management and care. Impression Primary Impression: Altered mental status Scribe Attestation The scribe's documentation has been prepared under my direction and personally reviewed by me in its entirety. I confirm that the note above accurately reflects all work, treatment, procedures, and medical decision making performed by me. Departure Information Dispostion Being Evaluated By Hospitalist Referrals Jae Andrade MD (PCP) Patient Instructions My [facility] Problem Qualifiers Primary Impression: Altered mental status Altered mental status type: unspecified Qualified Codes: R41.82 - Altered mental status, unspecified
[2016-11-03] MEDS ORDERED: TAMS0.4C38 PO (20:13)
[2016-11-03] MEDS ORDERED: BUDE1SUS8 NAE (20:13)
[2016-11-03] MEDS ORDERED: CHOL20007 PO (20:13)
[2016-11-03] MEDS ORDERED: VENL75CA73 PO (20:14)
[2016-11-03 20:19] LABS: BASO % 0.5 %; BASO ABS # 0.03 K/uL (0-0.2); COMPLETE YES; EOS % 3.9 %; IG% 0.2 %; LYMPH ABS # 1.43 K/uL (1.2-3.4); MEAN CELL VOLUME 94.5 fL (80-100); MEAN CORPUSCULAR HEMOGLOBIN 30.5 pg (25-34); MEAN CORPUSCULAR HGB CONC 32.2 g/dl (32-36); MONO % 7.2 %; NEUT % 64.2 %; PLATELET COUNT 178 K/uL (130-400); RED BLOOD COUNT 4.76 M/uL (4.7-6.1); WHITE BLOOD COUNT 5.96 K/uL (4.8-10.8)
--- NOTE | 2016-11-03 20:22 | DIAGNOSTIC IMAGING REPORT ---
CHEST ONE VIEW PORTABLE CLINICAL HISTORY: Pt c/o AMS dyspnea COMPARISON STUDY: 09/20/2016 FINDINGS: Mild stable cardiomegaly. Diaphragms smooth. Lungs are clear. IMPRESSION: Mild stable cardiomegaly. No acute process. The above report was generated using voice recognition software. It may contain grammatical, syntax or spelling errors. Electronically signed by: Fredy Coelho M.D. 11/03/2016 8:20 PM Dictated Date/Time: 11/03/2016 8:19 PM
[2016-11-03 20:36] LABS: ALT/SGPT 12 U/L (12-78); AST/SGOT 10 U/L (15-37); BLOOD UREA NITROGEN 25 mg/dl (7-18); BUN/CREATININE RATIO 26.1 (10-20); CALCIUM 8.3 mg/dl (8.5-10.1); CARBON DIOXIDE 32 mmol/L (21-32); CHLORIDE 105 mmol/L (98-107); CREATININE 0.96 mg/dl (0.60-1.40); GLUCOSE 203 mg/dl (70-99); POTASSIUM 3.6 mmol/L (3.5-5.1); SODIUM 143 mmol/L (136-145)
--- NOTE | 2016-11-03 20:43 | DIAGNOSTIC IMAGING REPORT ---
HEAD WITHOUT CONTRAST (CT) CT DOSE: 614.27 mGy.cm HISTORY: Mental status change Pt c/o AMS TECHNIQUE: Multiaxial CT images of the head were performed without the use of intravenous contrast. Comparison: 09/20/2016 Findings: Moderate mucosal thickening ethmoid sinuses. The mastoid air cells are clear. No lytic or blastic process. The calvarium and skull base are intact. The ventricles and sulci are within normal limits. There is no mass, hematoma, midline shift, or acute infarct. Several small old cerebellar infarcts which have been described previously Impression: No acute intracranial abnormality. Moderate mucosal thickening ethmoid sinuses The above report was generated using voice recognition software. It may contain grammatical, syntax or spelling errors. Electronically signed by: Fredy Coelho M.D. 11/03/2016 8:41 PM Dictated Date/Time: 11/03/2016 8:39 PM
[2016-11-03 20:47] LABS: ALKALINE PHOSPHATASE 72 U/L (45-117); CKMB/CK RATIO 1.8 (0-3.0); THYROID STIMULATING HORMONE 0.807 uIu/ml (0.300-4.500)
[2016-11-03 21:06] LABS: URINE APPEARANCE CLEAR (CLEAR); URINE BILIRUBIN NEG (NEG); URINE COLOR YELLOW; URINE NITRITE NEG (NEG); URINE PH 5.5 (4.5-7.5); URINE SPECIFIC GRAVITY 1.024 (1.000-1.030); UROBILINOGEN NEG (NEG)
[2016-11-03 21:09] LABS: MANUAL MICROSCOPIC REQUIRED? NO; REVIEW REQ? NO
[2016-11-03] MEDS ORDERED: HALOPERIDOL 5 MG TAB PO STA (23:25)
[2016-11-04] MEDS ORDERED: POLYETHYLENE (MIRALAX) 17 GM PACK PO PRN
[2016-11-04] MEDS ORDERED: HOME MED ADMINISTRATION ONE
[2016-11-04] MEDS ORDERED: BUSP1TAB46 PO
[2016-11-04] MEDS ORDERED: ONDANSETRON INJ 2 MG/ML 2 ML VIAL IV PRN
[2016-11-04] MEDS ORDERED: ACETAMINOPHEN 325 MG TAB PO PRN
[2016-11-04 00:25] VITALS: O2SAT 96
[2016-11-04 01:30] VITALS: BP 149/74; PULSE 60; TEMP 36.3; Ht 182.9 cm; Wt 89.6 kg
--- NOTE | 2016-11-04 01:35 | History and Physical ---
History & Physical Date & Time of Service: Nov 04, 2016 at 00:03 Chief Complaint: Severe Confusion,Belligerence,Threatening Behavior Primary Care Physician: Jae Andrade MD History of Present Illness Source: patient, spouse, clinic records, hospital records 70 yo M with Parkinson's dementia presents to the ER brought in by his because of physical aggression and defiance at home making him difficult to manage. He was here 1-2 months ago for AMS and falls and was sent to [facility] rehab facility for a month. His reports that his meds were being given incorrectly and there were issues in general going on-overall it was a poor experience so she took him home early. For a week, she states that he was doing well. However, over the past week he has demonstrated more defiance refusing to take his medications, spitting them out, and then he fell this morning after charging down the steps on his own. state it was an easy fall and he didn't get hurt. She also states that in the parking lot of the ER he was refusing to sit in the wheelchair to come in despite having agreed to come to the hospital. There have been no other symptoms of confusion, chest pain, cough, shortness of breath, difficulty urinating, fevers, chills, abdominal pain, nausea, vomiting, or diarrhea or constipation. He is being admitted as he is unfit for the home environment and will need to be re- evaluated for a different rehab facility. Past Medical/Surgical History Medical Problems: (1) BPH w urinary obs/LUTS Status: Chronic (2) CVA (cerebral vascular accident) Status: Chronic (3) Dementia Permanent Comment: Parkinson's disease with dementia vs Lewy body dementia Status: Chronic (4) Depression with anxiety Status: Chronic (5) Dyslipidemia Status: Chronic (6) GERD (gastroesophageal reflux disease) Status: Chronic (7) History of pneumonia Status: Chronic (8) Kidney stone Status: Resolved (9) Malignant melanoma Permanent Comment: left ear, s/p surgery Status: Chronic (11) Parkinson disease Status: Chronic (12) Pre-diabetes Permanent Comment: diet controlled Status: Chronic (13) RBBB Status: Chronic Surgical Problems: (1) H/O cystoscopy Status: Chronic (2) H/O hernia repair Status: Resolved (3) H/O hernia repair Status: Chronic (4) S/p lumbar hemilaminectomy Status: Chronic Family History Cancer Diabetes mellitus Social History Smoking Status: Never Smoker Smokeless Tobacco Use: No Alcohol Use: none Drug Use: none Marital Status: Housing status: lives with significant other Occupational Status: disabled Immunizations History of Influenza Vaccine: Yes Influenza Vaccine Date: Mar 10, 2016 History of Tetanus Vaccine?: Yes Tetanus Immunization Date: Apr 11, 2010 History of Pneumococcal: Yes Pneumococcal Date: Jun 30, 2014 History of Hepatitis B Vaccine: No Multi-Drug Resistant Organisms History of MDRO: No Allergies Coded Allergies: Oxybutynin (Verified Allergy, Unknown, HALLUCINATIONS,CHANGE IN MENTATION , 09/20/16) Tramadol (Verified Allergy, Unknown, SHORTNESS OF BREATH, 09/20/16) Home Medications Scheduled Aspirin (Aspirin Ec), 81 MG PO DAILY Budesonide (Nasal) (Rhinocort Allergy), 2 SPRAYS JOSE DAILY Buspirone Hcl (Buspirone Hcl), 7.5 MG PO TID Carbidopa/Levodopa (Sinemet 25MG/100MG), 2 TAB PO TID Carbidopa/Levodopa (Sinemet 25MG/100MG), 1 TAB PO HS Cholecalciferol (Vitamin D3), 1 TAB PO DAILY Clonazepam (Klonopin), 0.5 MG PO HS Donepezil Hydrochloride (Aricept), 20 MG PO HS Finasteride (Proscar), 5 MG PO DAILY Lisinopril (Lisinopril), 1 TAB PO DAILY Loratadine (Claritin), 5 MG PO DAILY Omeprazole (Prilosec), 40 MG PO DAILY Pimavanserin Tartrate (Nuplazid), 2 TAB PO DAILY Simvastatin (Zocor), 10 MG PO HS Tamsulosin Hcl (Flomax), 0.4 MG PO DAILY Venlafaxine Hcl (Effexor Xr), 1 CAP PO QAM Venlafaxine Hcl (Venlafaxine Extended Rel), 75 MG PO DAILY Review of Systems At least ten systems reviewed and negative except as indicated in HPI. Physical Exam Vital Signs Date Time Temp Pulse Resp B/P (MAP) Pulse Ox O2 Delivery O2 Flow Rate FiO2 11/03/16 23:42 62 20 130/68 95 Room Air 11/03/16 22:14 64 16 129/78 96 Room Air 11/03/16 21:08 63 16 114/64 97 Room Air 68 106/71 11/03/16 20:57 63 20 142/78 97 Room Air 11/03/16 20:09 65 11/03/16 19:43 96 Room Air 11/03/16 19:43 96 Room Air 11/03/16 19:18 36.5 73 18 125/78 95 Room Air GEN: WNWD, in no acute distress, alert and talkative, laughing and making jokes at one point. Oriented to self but not place or time. HEENT: NC/AT, PERRL, normal sclerae/conjunctivae, MMM, pharynx non-acute. Noted anterior head carriage. CARDIO: reg rate, S1/2 heard without m/g/r LUNGS: CTA bilaterally, no crackles, rales or wheezes, good diaphragmatic excursion ABD: soft, non-tender, non-distended, no rebound or guarding, +BS EXTREMITY: Noted rigidity in all extremities. RP and DP palpable 2+ bilat, no LE swelling or edema, extremities are warm and well-perfused NEURO: CN 2-12 grossl intact, sensation intact throughout, (reflexes) BR-could not elicit bilat, knee 2/4 bilat (limited exam 2/2 mental status) MUSC: 5/5 strength throughout, no focal deficits, again rigidity was noted SKIN: warm and dry Diagnostics Laboratory Results 11/04/16 06:35 11/04/16 06:35 Test 11/03/16 19:50 11/03/16 20:16 11/03/16 21:00 11/04/16 06:35 Immature Granulocyte % (Auto) 0.2 % White Blood Count 5.96 K/uL (4.8-10.8) Red Blood Count 4.76 M/uL (4.7-6.1) 4.78 M/uL (4.7-6.1) Hemoglobin 14.5 g/dL (14.0-18.0) Hematocrit 45.0 % (42-52) Mean Corpuscular Volume 94.5 fL (80-100) 94.6 fL (80-100) Mean Corpuscular Hemoglobin 30.5 pg (25-34) 30.8 pg (25-34) Mean Corpuscular Hemoglobin Concent 32.2 g/dl (32-36) 32.5 g/dl (32-36) Platelet Count 178 K/uL (130-400) Mean Platelet Volume 10.0 fL (7.4-10.4) 10.0 fL (7.4-10.4) Neutrophils (%) (Auto) 64.2 % Lymphocytes (%) (Auto) 24.0 % Monocytes (%) (Auto) 7.2 % Eosinophils (%) (Auto) 3.9 % Basophils (%) (Auto) 0.5 % Neutrophils # (Auto) 3.83 K/uL (1.4-6.5) Lymphocytes # (Auto) 1.43 K/uL (1.2-3.4) Monocytes # (Auto) 0.43 K/uL (0.11-0.59) Eosinophils # (Auto) 0.23 K/uL (0-0.5) Basophils # (Auto) 0.03 K/uL (0-0.2) Immature Granulocyte # (Auto) 0.01 K/uL (0.00-0.02) Total Bilirubin 0.5 mg/dl (0.2-1) Direct Bilirubin 0.1 mg/dl (0-0.2) Aspartate Amino Transf (AST/SGOT) 10 U/L (15-37) Alanine Aminotransferase (ALT/SGPT) 12 U/L (12-78) Alkaline Phosphatase 72 U/L (45-117) Total Creatine Kinase 55 U/L (39-308) Creatine Kinase MB 1.0 ng/ml (0.5-3.6) Creatine Kinase MB Ratio 1.8 (0-3.0) Troponin I < 0.015 ng/ml (0-0.045) Total Protein 6.4 gm/dl (6.4-8.2) Albumin 3.4 gm/dl (3.4-5.0) Thyroid Stimulating Hormone (TSH) 0.807 uIu/ml (0.300-4.500) Bedside Glucose 191 mg/dl (70-99) Urine Color YELLOW Urine Appearance CLEAR (CLEAR) Urine pH 5.5 (4.5-7.5) Urine Specific [place] 1.024 (1.000-1.030) Urine Protein NEG (NEG) Urine Glucose (UA) 1+ (NEG) Urine Ketones TRACE (NEG) Urine Occult Blood NEG (NEG) Urine Nitrite NEG (NEG) Urine Bilirubin NEG (NEG) Urine Urobilinogen NEG (NEG) Urine Leukocyte Esterase NEG (NEG) RDW Standard Deviation 43.0 fL (36.4-46.3) RDW Coefficient of Variation 12.5 % (11.5-14.5) Prothrombin Time 11.0 SECONDS (9.0-12.0) Prothromb Time International Ratio 1.0 (0.9-1.1) Anion Gap 6.0 mmol/L (3-11) Est Creatinine Clear Calc Drug Dose 88.0 ml/min Estimated GFR () 102.1 Estimated GFR (Non- 88.1 BUN/Creatinine Ratio 24.3 (10-20) Calcium Level 8.5 mg/dl (8.5-10.1) Magnesium Level 2.3 mg/dl (1.8-2.4) Results Past 24 Hours Test 11/03/16 19:50 11/03/16 20:16 11/03/16 21:00 Range/Units White Blood Count 5.96 4.8-10.8 K/uL Red Blood Count 4.76 4.7-6.1 M/uL Hemoglobin 14.5 14.0-18.0 g/dL Hematocrit 45.0 42-52 % Mean Corpuscular Volume 94.5 80-100 fL Mean Corpuscular Hemoglobin 30.5 25-34 pg Mean Corpuscular Hemoglobin Concent 32.2 32-36 g/dl Platelet Count 178 130-400 K/uL Mean Platelet Volume 10.0 7.4-10.4 fL Neutrophils (%) (Auto) 64.2 % Lymphocytes (%) (Auto) 24.0 % Monocytes (%) (Auto) 7.2 % Eosinophils (%) (Auto) 3.9 % Basophils (%) (Auto) 0.5 % Neutrophils # (Auto) 3.83 1.4-6.5 K/uL Lymphocytes # (Auto) 1.43 1.2-3.4 K/uL Monocytes # (Auto) 0.43 0.11-0.59 K/uL Eosinophils # (Auto) 0.23 0-0.5 K/uL Basophils # (Auto) 0.03 0-0.2 K/uL RDW Standard Deviation 43.1 36.4-46.3 fL RDW Coefficient of Variation 12.6 11.5-14.5 % Immature Granulocyte % (Auto) 0.2 % Immature Granulocyte # (Auto) 0.01 0.00-0.02 K/uL Sodium Level 143 136-145 mmol/L Potassium Level 3.6 3.5-5.1 mmol/L Chloride Level 105 98-107 mmol/L Carbon Dioxide Level 32 21-32 mmol/L Anion Gap 6.0 3-11 mmol/L Blood Urea Nitrogen 25 7-18 mg/dl Creatinine 0.96 0.60-1.40 mg/dl Est Creatinine Clear Calc Drug Dose 79.7 ml/min Estimated GFR () 93.1 Estimated GFR (Non- 80.3 BUN/Creatinine Ratio 26.1 10-20 Random Glucose 203 70-99 mg/dl Calcium Level 8.3 8.5-10.1 mg/dl Total Bilirubin 0.5 0.2-1 mg/dl Direct Bilirubin 0.1 0-0.2 mg/dl Aspartate Amino Transf (AST/SGOT) 10 15-37 U/L Alanine Aminotransferase (ALT/SGPT) 12 12-78 U/L Alkaline Phosphatase 72 45-117 U/L Total Creatine Kinase 55 39-308 U/L Creatine Kinase MB 1.0 0.5-3.6 ng/ml Creatine Kinase MB Ratio 1.8 0-3.0 Troponin I < 0.015 0-0.045 ng/ml Total Protein 6.4 6.4-8.2 gm/dl Albumin 3.4 3.4-5.0 gm/dl Thyroid Stimulating Hormone (TSH) 0.807 0.300-4.500 uIu/ml Bedside Glucose 191 70-99 mg/dl Urine Color YELLOW Urine Appearance CLEAR CLEAR Urine pH 5.5 4.5-7.5 Urine Specific [place] 1.024 1.000-1.030 Urine Protein NEG NEG Urine Glucose (UA) 1+ NEG Urine Ketones TRACE NEG Urine Occult Blood NEG NEG Urine Nitrite NEG NEG Urine Bilirubin NEG NEG Urine Urobilinogen NEG NEG Urine Leukocyte Esterase NEG NEG Diagnostic Radiology CHEST ONE VIEW PORTABLE CLINICAL HISTORY: Pt c/o AMS dyspnea COMPARISON STUDY: 09/20/2016 FINDINGS: Mild stable cardiomegaly. Diaphragms smooth. Lungs are clear. IMPRESSION: Mild stable cardiomegaly. No acute process. HEAD WITHOUT CONTRAST (CT) CT DOSE: 614.27 mGy.cm HISTORY: Mental status change Pt c/o AMS TECHNIQUE: Multiaxial CT images of the head were performed without the use of intravenous contrast. Comparison: 09/20/2016 Findings: Moderate mucosal thickening ethmoid sinuses. The mastoid air cells are clear. No lytic or blastic process. The calvarium and skull base are intact. The ventricles and sulci are within normal limits. There is no mass, hematoma, midline shift, or acute infarct. Several small old cerebellar infarcts which have been described previously Impression: No acute intracranial abnormality. Moderate mucosal thickening ethmoid sinuses Impression Assessment and Plan 70 yo M with severe dementia 2/2 Parkinson's vs Lewy body dementia presents for readmit after behavioral abnormalities at home. 1. Dementia with behavioral abnormalities-per some aggression and defiance is present and patient continues to fall at home. As above he was pulled out of rehab early (after one month) as there were many things awry with his care. thought home environment would be better for him but ultimately she cannot care for him alone at home. He was admitted for placement into different rehab facility. Workup regarding metabolic causes of behavioral issues is negative at this time. Medications were carefully reviewed with after multiple changes since last discharge. Consulting Neurology to ensure dosing of medications is appropriate/doesn't need to be changed/increased. For now, cont Sinemet QID, Buspar, Donepezil. 2. Falls 2/2 Parkinson's with ataxia as well as dementia-PT/OT for re- evaluation in am. special events planner requested for assistance to new facility. Cont vit D. 3. Cerebrovascular disease-on ASA 81. This was incidental finding on CT scan without h/o stroke-like symptoms or focal deficits. 4. Depression/Anxiety-cont Clonazepam 0.5mg PO qHS and Effexor. Of note, the effexor was underdosed for 1 month at rehab facility. He is on 225 XL daily and they were only giving 150mg daily per . 5. BPH-stable, monitor I/Os, cont finasteride and tamsulosin. 6. HTN-controlled, cont lisinopril DVT proph: Lovenox Full Code Dispo-Med/Surg DO [facility] Med/Surg Resuscitation Status FULL RESUSCITATION VTE Prophylaxis VTE Risk Assessment Done? Y/N: Yes Risk Level: Moderate Given or contraindicated: Enoxaparin (Lovenox)SQ
[2016-11-04] MEDS: CARBIDOPA/LEVODOPA 25/100MG TAB PO SCH ×4 (06:25→18:16)
[2016-11-04 07:05] LABS: HEMATOCRIT 45.2 % (42-52); MEAN CELL VOLUME 94.6 fL (80-100); MEAN CORPUSCULAR HEMOGLOBIN 30.8 pg (25-34); MEAN CORPUSCULAR HGB CONC 32.5 g/dl (32-36); PLATELET COUNT 163 K/uL (130-400); RED BLOOD COUNT 4.78 M/uL (4.7-6.1); WHITE BLOOD COUNT 5.92 K/uL (4.8-10.8)
[2016-11-04 07:33] LABS: BUN/CREATININE RATIO 24.3 (10-20); CALCIUM 8.5 mg/dl (8.5-10.1); CREATININE 0.87 mg/dl (0.60-1.40); MAGNESIUM 2.3 mg/dl (1.8-2.4); POTASSIUM 3.6 mmol/L (3.5-5.1)
[2016-11-04 07:38] VITALS: BP 124/73; PULSE 54; TEMP 36.5; O2SAT 97
[2016-11-04] MEDS: VENLAFAXINE HCL XR 150 MG CAPXR PO SCH (08:17)
[2016-11-04] MEDS: PANTOprazole SOD 40 MG TAB PO SCH (08:18)
[2016-11-04] MEDS: ASPIRIN 81 MG ECTAB PO SCH (08:18)
[2016-11-04] MEDS: FINASTERIDE 5 MG TAB PO SCH (08:18)
[2016-11-04] MEDS: CHOLECALCIFEROL 1000 INTER.UNIT TAB PO SCH (08:18)
[2016-11-04] MEDS: LISINOPRIL 2.5 MG TAB PO SCH (08:18)
[2016-11-04] MEDS: LORATADINE 10 MG TAB PO SCH (08:19)
[2016-11-04] MEDS: TAMSULOSIN HCL 0.4 MG CAP PO SCH (08:19)
[2016-11-04] MEDS: VENLAFAXINE HCL XR 75 MG CAPXR PO SCH (08:19)
[2016-11-04] MEDS: BUDESONIDE AQ (RHINOCORT AQ) NASAL SPRAY 32 MCG NAE SCH (08:20)
[2016-11-04] MEDS: NUPLAZID PO SCH (08:21)
[2016-11-04] MEDS: ENOXAPARIN 40 MG/0.4 ML SYR SQ SCH (08:26)
[2016-11-04] MEDS ORDERED: CARBIDOPA/LEVODOPA 25/100MG TAB PO SCH ×2 (09:00→21:00)
--- NOTE | 2016-11-04 12:35 | Neurology Consultation ---
Neurology Consultation Date of Consultation: Nov 04, 2016. Attending Physician: Juan Antonio Childs MD Primary Care Physician: Jae Andrade MD History of Present Illness Source: patient, family 70 yr old R handed male with Lewy body dementia associated with PD. Admitted for agitation. The pt had a recent hospitalization for worsening MS at which time no clear etiology was found. The pt rehabbed at a local [facility] for approximately 3 weeks. According to his his psychotropics were not given as they had been in the hospital. Per , the pt negro called the NH to advise on med doses and it is possible that those changes were not made. Nuplazid was however continued. Effexor was given in lower dose, buspar in higher dose. Meds have been back to their usual dose for 2 weeks. Because of concerns regarding the pt care, the brought him home about 2 weeks ago. He has been increasingly agitated, spoke of guns (now locked), tried to use the stove. No significant falls had occurred. He did not otherwise appear ill. Detailed ROS unable to be obtained given pt MS Past Medical/Surgical History Medical Problems: (1) Altered mental status Status: Acute (2) Change in mental status Status: Acute (3) Confusion Status: Acute (4) CVA (cerebral vascular accident) Status: Chronic Family History Not pertinent to this admission Social History Smoking Status: Never smoker Smokeless Tobacco Use: No Alcohol Use: none Drug Use: none Marital Status: Housing Status: lives with significant other Occupation Status: disabled Allergies Coded Allergies: Oxybutynin (Verified Allergy, Unknown, HALLUCINATIONS,CHANGE IN MENTATION , 09/20/16) Tramadol (Verified Allergy, Unknown, SHORTNESS OF BREATH, 09/20/16) Current Inpatient Medications Current Inpatient Medications Medications (Trade) Dose Ordered Sig/Rosa Route Start Time Stop Time Status Last Admin Dose Admin Acetaminophen (Tylenol Tab) 650 mg Q4H PRN PO 11/04/16 00:00 12/04/16 00:00 Polyethylene (Miralax Powder Packet) 17 gm DAILY PRN PO 11/04/16 00:00 12/04/16 00:00 Ondansetron HCl (Zofran Inj) 4 mg Q6H PRN IV 11/04/16 00:00 12/04/16 00:00 Enoxaparin Sodium (Lovenox Inj) 40 mg QAM SQ 11/04/16 08:00 12/04/16 08:59 11/04/16 08:26 40 MG Aspirin (Ecotrin Tab) 81 mg DAILY PO 11/04/16 08:00 12/04/16 08:59 11/04/16 08:18 81 MG Budesonide (Rhinocort Aq Nasal [place]) 2 sprays DAILY JOSE 11/04/16 08:00 12/04/16 08:59 11/04/16 08:20 2 SPRAYS Clonazepam (Klonopin Tab) 0.5 mg HS PO 11/04/16 21:00 12/04/16 20:59 Donepezil HCl (Aricept Tab) 20 mg HS PO 11/04/16 21:00 12/04/16 20:59 Finasteride (Proscar Tab) 5 mg DAILY PO 11/04/16 08:00 12/04/16 08:59 11/04/16 08:18 5 MG Lisinopril (Zestril Tab) 2.5 mg DAILY PO 11/04/16 08:00 12/04/16 08:59 11/04/16 08:18 2.5 MG Loratadine (Claritin Tab) 5 mg DAILY PO 11/04/16 08:00 12/04/16 08:59 11/04/16 08:19 5 MG Simvastatin (Zocor Tab) 10 mg HS PO 11/04/16 21:00 12/04/16 20:59 Tamsulosin HCl (Flomax Cap) 0.4 mg DAILY PO 11/04/16 08:00 12/04/16 08:59 11/04/16 08:19 0.4 MG Venlafaxine HCl (effeXOR EXTENDED REL CAP) 150 mg QAM PO 11/04/16 08:00 12/04/16 08:59 11/04/16 08:17 150 MG Venlafaxine HCl (effeXOR EXTENDED REL CAP) 75 mg DAILY PO 11/04/16 08:00 12/04/16 08:59 11/04/16 08:19 75 MG Non-Formulary Medication (Non-Formulary Patient'S Own Med) 2 ea DAILY PO 11/04/16 08:00 12/04/16 07:59 11/04/16 08:21 2 EA Buspirone HCl (Buspar Tab) 7.5 mg TID PO 11/04/16 08:00 12/04/16 08:59 11/04/16 08:17 7.5 MG Cholecalciferol (Vitamin D Tab) 2,000 inter.unit QAM PO 11/04/16 08:00 12/04/16 08:59 11/04/16 08:18 2,000 INTER.UNIT Pantoprazole Sodium (Protonix Tab) 40 mg QAM PO 11/04/16 08:00 12/04/16 08:59 11/04/16 08:18 40 MG Carbidopa/Levodopa (Sinemet 25/ 100MG Tab) 2 tab 0700,1100,1500 PO 11/04/16 07:00 12/04/16 08:59 11/04/16 11:08 2 TAB Carbidopa/Levodopa (Sinemet 25/ 100MG Tab) 1 tab DAILY@1900 PO 11/04/16 19:00 12/04/16 20:59 Review of Systems Unable to be obtained secondary to pt MS Physical Exam Vital Signs (Past 24 Hrs): Date Time Temp Pulse Resp B/P (MAP) Pulse Ox O2 Delivery O2 Flow Rate FiO2 11/04/16 08:00 Room Air 11/04/16 07:38 36.5 54 18 124/73 (90) 97 Room Air 11/04/16 01:30 36.3 60 18 149/74 Room Air 11/04/16 00:25 64 16 131/84 96 11/03/16 23:42 62 20 130/68 95 Room Air 11/03/16 22:14 64 16 129/78 96 Room Air 11/03/16 21:08 63 16 114/64 97 Room Air 68 106/71 11/03/16 20:57 63 20 142/78 97 Room Air 11/03/16 20:09 65 11/03/16 19:43 96 Room Air 11/03/16 19:43 96 Room Air 11/03/16 19:18 36.5 73 18 125/78 95 Room Air PT sleepy but arousable, unable to state name, follow commands. Head NCAT, no spinal tenderness. No carotid bruits, heart RRR no MRG. Abd soft, NT. No asymmetric calf swelling.Blepharospasm, mild drooling, no facial asymmetry. Moderate diffuse rigidity. L>R resting tremor, symmetric reflexes, toes downgoing.Manual motor testing, sensory and cerebellar unable to be performed secondary to pt MS. Laboratory Results Past 24 Hours: 11/04/16 06:35 11/04/16 06:35 Test 11/03/16 19:50 11/03/16 20:16 11/03/16 21:00 11/04/16 06:35 Immature Granulocyte % (Auto) 0.2 % White Blood Count 5.96 K/uL (4.8-10.8) Red Blood Count 4.76 M/uL (4.7-6.1) 4.78 M/uL (4.7-6.1) Hemoglobin 14.5 g/dL (14.0-18.0) Hematocrit 45.0 % (42-52) Mean Corpuscular Volume 94.5 fL (80-100) 94.6 fL (80-100) Mean Corpuscular Hemoglobin 30.5 pg (25-34) 30.8 pg (25-34) Mean Corpuscular Hemoglobin Concent 32.2 g/dl (32-36) 32.5 g/dl (32-36) Platelet Count 178 K/uL (130-400) Mean Platelet Volume 10.0 fL (7.4-10.4) 10.0 fL (7.4-10.4) Neutrophils (%) (Auto) 64.2 % Lymphocytes (%) (Auto) 24.0 % Monocytes (%) (Auto) 7.2 % Eosinophils (%) (Auto) 3.9 % Basophils (%) (Auto) 0.5 % Neutrophils # (Auto) 3.83 K/uL (1.4-6.5) Lymphocytes # (Auto) 1.43 K/uL (1.2-3.4) Monocytes # (Auto) 0.43 K/uL (0.11-0.59) Eosinophils # (Auto) 0.23 K/uL (0-0.5) Basophils # (Auto) 0.03 K/uL (0-0.2) Immature Granulocyte # (Auto) 0.01 K/uL (0.00-0.02) Total Bilirubin 0.5 mg/dl (0.2-1) Direct Bilirubin 0.1 mg/dl (0-0.2) Aspartate Amino Transf (AST/SGOT) 10 U/L (15-37) Alanine Aminotransferase (ALT/SGPT) 12 U/L (12-78) Alkaline Phosphatase 72 U/L (45-117) Total Creatine Kinase 55 U/L (39-308) Creatine Kinase MB 1.0 ng/ml (0.5-3.6) Creatine Kinase MB Ratio 1.8 (0-3.0) Troponin I < 0.015 ng/ml (0-0.045) Total Protein 6.4 gm/dl (6.4-8.2) Albumin 3.4 gm/dl (3.4-5.0) Thyroid Stimulating Hormone (TSH) 0.807 uIu/ml (0.300-4.500) Bedside Glucose 191 mg/dl (70-99) Urine Color YELLOW Urine Appearance CLEAR (CLEAR) Urine pH 5.5 (4.5-7.5) Urine Specific [place] 1.024 (1.000-1.030) Urine Protein NEG (NEG) Urine Glucose (UA) 1+ (NEG) Urine Ketones TRACE (NEG) Urine Occult Blood NEG (NEG) Urine Nitrite NEG (NEG) Urine Bilirubin NEG (NEG) Urine Urobilinogen NEG (NEG) Urine Leukocyte Esterase NEG (NEG) RDW Standard Deviation 43.0 fL (36.4-46.3) RDW Coefficient of Variation 12.5 % (11.5-14.5) Prothrombin Time 11.0 SECONDS (9.0-12.0) Prothromb Time International Ratio 1.0 (0.9-1.1) Anion Gap 6.0 mmol/L (3-11) Est Creatinine Clear Calc Drug Dose 88.0 ml/min Estimated GFR () 102.1 Estimated GFR (Non- 88.1 BUN/Creatinine Ratio 24.3 (10-20) Calcium Level 8.5 mg/dl (8.5-10.1) Magnesium Level 2.3 mg/dl (1.8-2.4) Imaging CT brain no acute process. Impression PT with Lewy body dementia with PD. Pt current increase in agitation could be related to medications not yet equilibrated since dose adjustment. No obvious tox/metabolic etiology. Rec geropsych consultation as they have addressed his psychotropic meds. No change in PT meds. Continue aricept provided wt stable. Pt will need NH placement in a dementia unit. ASHLI Mazariegos MD
--- NOTE | 2016-11-04 14:21 | Progress Note ---
Internal Med Progress Note Date of Service: Nov 04, 2016. Provider Documentation: SUBJECTIVE: Seen and examined at bedside. Currently calm and pleasant. Offers no complaints. Family at bedside. OBJECTIVE: Vital Signs-as noted below Physical Exam: General Appearance:Moderately built and nourished, no apparent distress Head: normocephalic, Atraumatic Eyes: normal inspection, EOMI, PERRL Neck: supple, Trachea midline Respiratory/Chest: Normal breath sounds, CTA Cardiovascular: S1, S2, No murmur Abdomen/GI:Soft, Non tender, Bowel sounds present Extremities/Musculoskelatal:normal inspection, no edema Neurologic/Psych:grossly no focal neurological deficits +Resting tremor Skin: normal color, warm Lab data as noted below. 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 Dementia with behavioral abnormalities: No metabolic causes identified CT head: No acute pathology continue Sinemet, Buspar, Donepezil, Klonopin and Effexor Appreciate Neurology and Psychiatry Input H/O multiple Falls secondary to Parkinson's with ataxia PT/OT Fall precautions H/O CVA: Continue ASA, statins Depression/Anxiety: Continue meds per Psych BPH: stable continue finasteride and tamsulosin. 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 Vital Signs: Date Time Temp Pulse Resp B/P (MAP) Pulse Ox O2 Delivery O2 Flow Rate FiO2 11/04/16 08:00 Room Air 11/04/16 07:38 36.5 54 18 124/73 (90) 97 Room Air 11/04/16 01:30 36.3 60 18 149/74 Room Air 11/04/16 00:25 64 16 131/84 96 11/03/16 23:42 62 20 130/68 95 Room Air 11/03/16 22:14 64 16 129/78 96 Room Air 11/03/16 21:08 63 16 114/64 97 Room Air 68 106/71 11/03/16 20:57 63 20 142/78 97 Room Air 11/03/16 20:09 65 11/03/16 19:43 96 Room Air 11/03/16 19:43 96 Room Air 11/03/16 19:18 36.5 73 18 125/78 95 Room Air Lab Results: Results Past 24 Hours Test 11/03/16 19:50 11/03/16 20:16 11/03/16 21:00 11/04/16 06:35 Range/Units White Blood Count 5.96 5.92 4.8-10.8 K/uL Red Blood Count 4.76 4.78 4.7-6.1 M/uL Hemoglobin 14.5 14.7 14.0-18.0 g/dL Hematocrit 45.0 45.2 42-52 % Mean Corpuscular Volume 94.5 94.6 80-100 fL Mean Corpuscular Hemoglobin 30.5 30.8 25-34 pg Mean Corpuscular Hemoglobin Concent 32.2 32.5 32-36 g/dl Platelet Count 178 163 130-400 K/uL Mean Platelet Volume 10.0 10.0 7.4-10.4 fL Neutrophils (%) (Auto) 64.2 % Lymphocytes (%) (Auto) 24.0 % Monocytes (%) (Auto) 7.2 % Eosinophils (%) (Auto) 3.9 % Basophils (%) (Auto) 0.5 % Neutrophils # (Auto) 3.83 1.4-6.5 K/uL Lymphocytes # (Auto) 1.43 1.2-3.4 K/uL Monocytes # (Auto) 0.43 0.11-0.59 K/uL Eosinophils # (Auto) 0.23 0-0.5 K/uL Basophils # (Auto) 0.03 0-0.2 K/uL RDW Standard Deviation 43.1 43.0 36.4-46.3 fL RDW Coefficient of Variation 12.6 12.5 11.5-14.5 % Immature Granulocyte % (Auto) 0.2 % Immature Granulocyte # (Auto) 0.01 0.00-0.02 K/uL Sodium Level 143 143 136-145 mmol/L Potassium Level 3.6 3.6 3.5-5.1 mmol/L Chloride Level 105 107 98-107 mmol/L Carbon Dioxide Level 32 30 21-32 mmol/L Anion Gap 6.0 6.0 3-11 mmol/L Blood Urea Nitrogen 25 21 7-18 mg/dl Creatinine 0.96 0.87 0.60-1.40 mg/dl Est Creatinine Clear Calc Drug Dose 79.7 88.0 ml/min Estimated GFR () 93.1 102.1 Estimated GFR (Non- 80.3 88.1 BUN/Creatinine Ratio 26.1 24.3 10-20 Random Glucose 203 113 70-99 mg/dl Calcium Level 8.3 8.5 8.5-10.1 mg/dl Total Bilirubin 0.5 0.2-1 mg/dl Direct Bilirubin 0.1 0-0.2 mg/dl Aspartate Amino Transf (AST/SGOT) 10 15-37 U/L Alanine Aminotransferase (ALT/SGPT) 12 12-78 U/L Alkaline Phosphatase 72 45-117 U/L Total Creatine Kinase 55 39-308 U/L Creatine Kinase MB 1.0 0.5-3.6 ng/ml Creatine Kinase MB Ratio 1.8 0-3.0 Troponin I < 0.015 0-0.045 ng/ml Total Protein 6.4 6.4-8.2 gm/dl Albumin 3.4 3.4-5.0 gm/dl Thyroid Stimulating Hormone (TSH) 0.807 0.300-4.500 uIu/ml Bedside Glucose 191 70-99 mg/dl Urine Color YELLOW Urine Appearance CLEAR CLEAR Urine pH 5.5 4.5-7.5 Urine Specific [place] 1.024 1.000-1.030 Urine Protein NEG NEG Urine Glucose (UA) 1+ NEG Urine Ketones TRACE NEG Urine Occult Blood NEG NEG Urine Nitrite NEG NEG Urine Bilirubin NEG NEG Urine Urobilinogen NEG NEG Urine Leukocyte Esterase NEG NEG Prothrombin Time 11.0 9.0-12.0 SECONDS Prothromb Time International Ratio 1.0 0.9-1.1 Magnesium Level 2.3 1.8-2.4 mg/dl
--- NOTE | 2016-11-04 14:22 | Psychiatric Consultation ---
Consultation Date of Consultation Nov 04, 2016. Identifying Data Mr. Tesfaye is a 70 yo male with Lewy Body dementia with associated Parkinson 's who is seen today with his . The couple resides in [place] and he is a longstanding patient of geriatric psychiatrist Jhonny Monroy MD at [facility]. Chief Complaint "he wasn't getting his meds correctly at that rehab"--per /POA. History of Present Illness Mr. Tesfaye was last seen by Dr. Monroy in mid-August. At that time he was maintaining his improvement on Nuplazid and tolerating an increase in his Sinemet by Dr. Guerra. He had baseline confusion and memory difficulties but no hallucinations and was maintaining him at home. He was admitted to [facility] at the end of August s/p fall with AMS and discharged to a rehab near their home. Mrs. Tesfaye reports that he was only getting Effexor XR 150 mg there (instead of 225 mg) and due to his anxiety/upset of being outside of his usual environment his Buspar was increased to 10 mg TID which only seemed to make him more irritable. She actually pulled him out of the rehab after a month as she felt he wasn't getting appropriate services there and resumed the regular doses of his medication. Apparently she spoke with Dr. Monroy and decreased his Buspar dose to current order. Mr. Tesfaye has been less cooperative, spitting out his meds at time. He had a "soft" fall as he insisted on going down the stairs by himself. He hasn' t made any self harm statements and has not been combative. His [place] seem well controlled. Previous psych consult from 2012 when he was admitted for UTI and MS change was also reviewed. Past Psychiatric History Current OP Treatment: psychiatrist (Dr. Monroy at [facility] since 2012) Prior Psych Hospitalizations: none Access to a Gun: No Suicide Attempts: No Past Medication Trials selegiline, Cymbalta, Neurontin, Aricept Past Medical/Surgical History (1) Parkinson disease (2) Pre-diabetes (3) GERD (gastroesophageal reflux disease) (4) Malignant melanoma (5) RBBB (6) BPH w urinary obs/LUTS (7) Dyslipidemia (8) Dementia (9) H/O hernia repair (10) S/p lumbar hemilaminectomy (11) H/O cystoscopy Allergies Allergies: Coded Allergies: Oxybutynin (Verified Allergy, Unknown, HALLUCINATIONS,CHANGE IN MENTATION , 09/20/16) Tramadol (Verified Allergy, Unknown, SHORTNESS OF BREATH, 09/20/16) Home Medications Scheduled Aspirin (Aspirin Ec), 81 MG PO DAILY Budesonide (Nasal) (Rhinocort Allergy), 2 SPRAYS JOSE DAILY Buspirone Hcl (Buspirone Hcl), 7.5 MG PO TID Carbidopa/Levodopa (Sinemet 25MG/100MG), 2 TAB PO TID Carbidopa/Levodopa (Sinemet 25MG/100MG), 1 TAB PO HS Cholecalciferol (Vitamin D3), 1 TAB PO DAILY Clonazepam (Klonopin), 0.5 MG PO HS Donepezil Hydrochloride (Aricept), 20 MG PO HS Finasteride (Proscar), 5 MG PO DAILY Lisinopril (Lisinopril), 1 TAB PO DAILY Loratadine (Claritin), 5 MG PO DAILY Omeprazole (Prilosec), 40 MG PO DAILY Pimavanserin Tartrate (Nuplazid), 2 TAB PO DAILY Simvastatin (Zocor), 10 MG PO HS Tamsulosin Hcl (Flomax), 0.4 MG PO DAILY Venlafaxine Hcl (Effexor Xr), 1 CAP PO QAM Venlafaxine Hcl (Venlafaxine Extended Rel), 75 MG PO DAILY Family History Cancer Diabetes mellitus History of Suicide: No Psychiatric History: No Alcohol Use Alcohol Use In Past 12 Months: No Smoking Use Smoking Status: Never Smoker Substance History denied Personal History Lives in: [place] Education: graduated college 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 Examination Vital Signs Vital Signs Past 12 Hours Date Time Temp Pulse Resp B/P (MAP) Pulse Ox O2 Delivery O2 Flow Rate FiO2 11/04/16 08:00 Room Air 11/04/16 07:38 36.5 54 18 124/73 (90) 97 Room Air Laboratory Results Last 24 Hours Test 11/03/16 19:50 11/03/16 20:16 11/03/16 21:00 11/04/16 06:35 White Blood Count 5.96 K/uL 5.92 K/uL Red Blood Count 4.76 M/uL 4.78 M/uL Hemoglobin 14.5 g/dL 14.7 g/dL Hematocrit 45.0 % 45.2 % Mean Corpuscular Volume 94.5 fL 94.6 fL Mean Corpuscular Hemoglobin 30.5 pg 30.8 pg Mean Corpuscular Hemoglobin Concent 32.2 g/dl 32.5 g/dl Platelet Count 178 K/uL 163 K/uL Mean Platelet Volume 10.0 fL 10.0 fL Neutrophils (%) (Auto) 64.2 % Lymphocytes (%) (Auto) 24.0 % Monocytes (%) (Auto) 7.2 % Eosinophils (%) (Auto) 3.9 % Basophils (%) (Auto) 0.5 % Neutrophils # (Auto) 3.83 K/uL Lymphocytes # (Auto) 1.43 K/uL Monocytes # (Auto) 0.43 K/uL Eosinophils # (Auto) 0.23 K/uL Basophils # (Auto) 0.03 K/uL RDW Standard Deviation 43.1 fL 43.0 fL RDW Coefficient of Variation 12.6 % 12.5 % Immature Granulocyte % (Auto) 0.2 % Immature Granulocyte # (Auto) 0.01 K/uL Sodium Level 143 mmol/L 143 mmol/L Potassium Level 3.6 mmol/L 3.6 mmol/L Chloride Level 105 mmol/L 107 mmol/L Carbon Dioxide Level 32 mmol/L 30 mmol/L Anion Gap 6.0 mmol/L 6.0 mmol/L Blood Urea Nitrogen 25 mg/dl 21 mg/dl Creatinine 0.96 mg/dl 0.87 mg/dl Est Creatinine Clear Calc Drug Dose 79.7 ml/min 88.0 ml/min Estimated GFR () 93.1 102.1 Estimated GFR (Non- 80.3 88.1 BUN/Creatinine Ratio 26.1 24.3 Random Glucose 203 mg/dl 113 mg/dl Calcium Level 8.3 mg/dl 8.5 mg/dl Total Bilirubin 0.5 mg/dl Direct Bilirubin 0.1 mg/dl Aspartate Amino Transf (AST/SGOT) 10 U/L Alanine Aminotransferase (ALT/SGPT) 12 U/L Alkaline Phosphatase 72 U/L Total Creatine Kinase 55 U/L Creatine Kinase MB 1.0 ng/ml Creatine Kinase MB Ratio 1.8 Troponin I < 0.015 ng/ml Total Protein 6.4 gm/dl Albumin 3.4 gm/dl Thyroid Stimulating Hormone (TSH) 0.807 uIu/ml Bedside Glucose 191 mg/dl Urine Color YELLOW Urine Appearance CLEAR Urine pH 5.5 Urine Specific [place] 1.024 Urine Protein NEG Urine Glucose (UA) 1+ Urine Ketones TRACE Urine Occult Blood NEG Urine Nitrite NEG Urine Bilirubin NEG Urine Urobilinogen NEG Urine Leukocyte Esterase NEG Prothrombin Time 11.0 SECONDS Prothromb Time International Ratio 1.0 Magnesium Level 2.3 mg/dl Mental Examination During interview pt is: alert and oriented (to self) Appearance: appropriately groomed Eye contact is: fair Motor behavior is: tremor Speech: other (non-spontaneous) Affect: other (inappropriately bright at times) Mood is: other ("good") Thought process: concrete Thought content: reality based without delusions Suicidal thought are: denied Homicidal thoughts are: denied Hallucinations: denies auditory, denies visual Cognition: language grossly intact, other (memory and attention impaired) Insight: limited Judgement: limited Impression / Recommendations Impression 70 yo male with well documented dementia with lewy bodies and associated parkinson's who presents with period of decompensation following an inpatient rehab stay. Per family's report his Effexor XR wasn't given at consistent dose and he may have experienced paradoxical activation on Buspar. He has shown consistent dramatic improvement on Nuplazid. Recommendations Mr. Tesfaye is psychiatrically stable for discharge to appropriate level of nursing care/rehab facility there is no acute indication for inpatient psychiatric admission I ordered his Klonopin and Buspar at lower doses as previously prescribed by Dr. Eliana Monroy updated for coordination of care, agrees to f/u with Dr. Monroy as appropriate on discharge from rehab
[2016-11-04 15:38] VITALS: BP 122/66
[2016-11-04 15:59] VITALS: BP 114/69; PULSE 65; TEMP 36.7; O2SAT 98
[2016-11-04] MEDS: SIMVASTATIN 10 MG TAB PO SCH (20:59)
[2016-11-04] MEDS: DONEPEZIL HCL 10 MG TAB PO SCH (21:00)
[2016-11-04] MEDS ORDERED: CLONAZEPAM 0.5 MG TAB PO SCH (21:00)
[2016-11-04] MEDS: CLONAZEPAM 0.5 MG TAB PO SCH (21:08)
[2016-11-04 23:27] VITALS: BP 123/77; PULSE 61; TEMP 36.5; O2SAT 95
[2016-11-05] MEDS: CARBIDOPA/LEVODOPA 25/100MG TAB PO SCH ×4 (06:10→18:23)
[2016-11-05 06:53] VITALS: BP 131/81; PULSE 54; TEMP 36.5; O2SAT 96
[2016-11-05] MEDS: VENLAFAXINE HCL XR 150 MG CAPXR PO SCH (07:12)
[2016-11-05] MEDS: DONEPEZIL HCL 10 MG TAB PO SCH (07:13)
[2016-11-05] MEDS: VENLAFAXINE HCL XR 75 MG CAPXR PO SCH (07:13)
[2016-11-05] MEDS: LORATADINE 10 MG TAB PO SCH (07:13)
[2016-11-05] MEDS: PANTOprazole SOD 40 MG TAB PO SCH (07:13)
[2016-11-05] MEDS: ASPIRIN 81 MG ECTAB PO SCH (07:14)
[2016-11-05] MEDS: CHOLECALCIFEROL 1000 INTER.UNIT TAB PO SCH (07:14)
[2016-11-05] MEDS: LISINOPRIL 2.5 MG TAB PO SCH (07:14)
[2016-11-05] MEDS: TAMSULOSIN HCL 0.4 MG CAP PO SCH (07:15)
[2016-11-05] MEDS: BUDESONIDE AQ (RHINOCORT AQ) NASAL SPRAY 32 MCG NAE SCH (07:15)
[2016-11-05] MEDS: FINASTERIDE 5 MG TAB PO SCH (07:15)
[2016-11-05] MEDS: NUPLAZID PO SCH (07:15)
[2016-11-05] MEDS: ENOXAPARIN 40 MG/0.4 ML SYR SQ SCH (07:16)
--- NOTE | 2016-11-05 12:11 | Neurology Progress Notes ---
Neurology Progress Note Date of Service Nov 05, 2016. Subjective NO complaints, slept well, ate breakfast and partially fed self Objective Date Time Temp Pulse Resp B/P (MAP) Pulse Ox O2 Delivery O2 Flow Rate FiO2 11/05/16 08:00 Room Air 11/05/16 06:53 36.5 54 18 131/81 (98) 96 Room Air 11/05/16 01:46 Room Air 11/04/16 23:27 36.5 61 18 123/77 (92) 95 Room Air 11/04/16 16:00 Room Air 11/04/16 15:59 36.7 65 18 114/69 (84) 98 Room Air Exam: Pt is awake and alert, disoriented, confused but cooperative. Facial masking, decreased blink frequency. Jaw tremor. Moderate generalized rigidity moreso in the LE, but improved compared to prior day. Current Inpatient Medications Medications (Trade) Dose Ordered Sig/Roas Route Start Time Stop Time Status Last Admin Dose Admin Acetaminophen (Tylenol Tab) 650 mg Q4H PRN PO 11/04/16 00:00 12/04/16 00:00 Polyethylene (Miralax Powder Packet) 17 gm DAILY PRN PO 11/04/16 00:00 12/04/16 00:00 Ondansetron HCl (Zofran Inj) 4 mg Q6H PRN IV 11/04/16 00:00 12/04/16 00:00 Enoxaparin Sodium (Lovenox Inj) 40 mg QAM SQ 11/04/16 08:00 12/04/16 08:59 11/05/16 07:16 40 MG Aspirin (Ecotrin Tab) 81 mg DAILY PO 11/04/16 08:00 12/04/16 08:59 11/05/16 07:14 81 MG Budesonide (Rhinocort Aq Nasal [place]) 2 sprays DAILY JOSE 11/04/16 08:00 12/04/16 08:59 11/05/16 07:15 2 SPRAYS Donepezil HCl (Aricept Tab) 20 mg HS PO 11/04/16 21:00 12/04/16 20:59 11/05/16 07:13 20 MG Finasteride (Proscar Tab) 5 mg DAILY PO 11/04/16 08:00 12/04/16 08:59 11/05/16 07:15 5 MG Lisinopril (Zestril Tab) 2.5 mg DAILY PO 11/04/16 08:00 12/04/16 08:59 11/05/16 07:14 2.5 MG Loratadine (Claritin Tab) 5 mg DAILY PO 11/04/16 08:00 12/04/16 08:59 11/05/16 07:13 5 MG Simvastatin (Zocor Tab) 10 mg HS PO 11/04/16 21:00 12/04/16 20:59 11/04/16 20:59 10 MG Tamsulosin HCl (Flomax Cap) 0.4 mg DAILY PO 11/04/16 08:00 12/04/16 08:59 11/05/16 07:15 0.4 MG Venlafaxine HCl (effeXOR EXTENDED REL CAP) 150 mg QAM PO 11/04/16 08:00 12/04/16 08:59 11/05/16 07:12 150 MG Venlafaxine HCl (effeXOR EXTENDED REL CAP) 75 mg DAILY PO 11/04/16 08:00 12/04/16 08:59 11/05/16 07:13 75 MG Non-Formulary Medication (Non-Formulary Patient'S Own Med) 2 ea DAILY PO 11/04/16 08:00 12/04/16 07:59 11/05/16 07:15 2 EA Cholecalciferol (Vitamin D Tab) 2,000 inter.unit QAM PO 11/04/16 08:00 12/04/16 08:59 11/05/16 07:14 2,000 INTER.UNIT Pantoprazole Sodium (Protonix Tab) 40 mg QAM PO 11/04/16 08:00 12/04/16 08:59 11/05/16 07:13 40 MG Carbidopa/Levodopa (Sinemet 25/ 100MG Tab) 2 tab 0700,1100,1500 PO 11/04/16 07:00 12/04/16 08:59 11/05/16 11:25 2 TAB Carbidopa/Levodopa (Sinemet 25/ 100MG Tab) 1 tab DAILY@1900 PO 11/04/16 19:00 12/04/16 20:59 11/04/16 18:16 1 TAB Buspirone HCl (Buspar Tab) 5 mg TID PO 7/15/17 20:00 12/04/16 08:59 11/05/16 07:12 5 MG Clonazepam (Klonopin Tab) 0.25 mg HS PO 11/04/16 22:00 12/04/16 20:59 11/04/16 21:08 0.25 MG Impression PT with Lewy body dementia with PD. Pt appears improved, not currently delirious. Psych has seen him and adjusted buspar. Pt awaiting NH placement. I discussed with . Pt will need to follow-up with Dr Guerra within one month post discharge. ASHLI Mazariegos MD
[2016-11-05 15:19] VITALS: BP 91/53; PULSE 65; TEMP 36.2; O2SAT 98
--- NOTE | 2016-11-05 15:29 | Progress Note ---
Internal Med Progress Note Date of Service: Nov 05, 2016. Provider Documentation: SUBJECTIVE: Seen and examined at bedside. Doing well with change in medications No acute issues Family at bedside. OBJECTIVE: Vital Signs-as noted below Physical Exam: General Appearance:Moderately built and nourished, no apparent distress Head: normocephalic, Atraumatic Eyes: normal inspection, EOMI, PERRL Neck: supple, Trachea midline Respiratory/Chest: Normal breath sounds, CTA Cardiovascular: S1, S2, No murmur Abdomen/GI:Soft, Non tender, Bowel sounds present Extremities/Musculoskelatal:normal inspection, no edema Neurologic/Psych:grossly no focal neurological deficits +Resting tremor Skin: normal color, warm Lab data as noted below. 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 HTN: Stable continue lisinopril DVT Px: Lovenox Code Status: Full Code Disposition: To be determined workers compensation examiner consulted Needs follow up with Neurology upon discharge Vital Signs: Date Time Temp Pulse Resp B/P (MAP) Pulse Ox O2 Delivery O2 Flow Rate FiO2 11/05/16 15:19 36.2 65 16 91/53 (66) 98 Room Air 11/05/16 08:00 Room Air 11/05/16 06:53 36.5 54 18 131/81 (98) 96 Room Air 11/05/16 01:46 Room Air 11/04/16 23:27 36.5 61 18 123/77 (92) 95 Room Air 11/04/16 16:00 Room Air 11/04/16 15:59 36.7 65 18 114/69 (84) 98 Room Air
[2016-11-05] MEDS: SIMVASTATIN 10 MG TAB PO SCH (21:32)
[2016-11-05] MEDS: CLONAZEPAM 0.5 MG TAB PO SCH (21:32)
[2016-11-05 23:29] VITALS: BP 154/87; PULSE 66; TEMP 36.6; O2SAT 95
[2016-11-06] MEDS: CARBIDOPA/LEVODOPA 25/100MG TAB PO SCH ×4 (06:01→18:37)
[2016-11-06 07:57] VITALS: BP 140/81; PULSE 67; TEMP 36.5; O2SAT 94
[2016-11-06] MEDS: BUDESONIDE AQ (RHINOCORT AQ) NASAL SPRAY 32 MCG NAE SCH (08:50)
[2016-11-06] MEDS: LORATADINE 10 MG TAB PO SCH (08:52)
[2016-11-06] MEDS: TAMSULOSIN HCL 0.4 MG CAP PO SCH (08:53)
[2016-11-06] MEDS: ASPIRIN 81 MG ECTAB PO SCH (08:53)
[2016-11-06] MEDS: VENLAFAXINE HCL XR 150 MG CAPXR PO SCH (08:53)
[2016-11-06] MEDS: VENLAFAXINE HCL XR 75 MG CAPXR PO SCH (08:53)
[2016-11-06] MEDS: NUPLAZID PO SCH (08:54)
[2016-11-06] MEDS: CHOLECALCIFEROL 1000 INTER.UNIT TAB PO SCH (08:55)
[2016-11-06] MEDS: FINASTERIDE 5 MG TAB PO SCH (08:55)
[2016-11-06] MEDS: PANTOprazole SOD 40 MG TAB PO SCH (08:55)
[2016-11-06] MEDS: LISINOPRIL 2.5 MG TAB PO SCH (08:56)
[2016-11-06] MEDS: ENOXAPARIN 40 MG/0.4 ML SYR SQ SCH (09:04)
--- NOTE | 2016-11-06 12:37 | Progress Note ---
Internal Med Progress Note Date of Service: Nov 06, 2016. Provider Documentation: SUBJECTIVE: Seen and examined at bedside. Feels well. Sleeping well, no aggression No acute issues. Family at bedside. Awaiting for placement OBJECTIVE: Vital Signs-as noted below Physical Exam: General Appearance:Moderately built and nourished, no apparent distress Head: normocephalic, Atraumatic Eyes: normal inspection, EOMI, PERRL Neck: supple, Trachea midline Respiratory/Chest: Normal breath sounds, CTA Cardiovascular: S1, S2, No murmur Abdomen/GI:Soft, Non tender, Bowel sounds present Extremities/Musculoskelatal:normal inspection, no edema Neurologic/Psych:grossly no focal neurological deficits +Resting tremor Skin: normal color, warm Lab data as noted below. 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 HTN: Stable continue lisinopril DVT Px: Lovenox Code Status: Full Code Disposition: Awaiting for placement Needs follow up with Neurology upon discharge Follow up with your Psychiatrist as outpatient Vital Signs: Date Time Temp Pulse Resp B/P (MAP) Pulse Ox O2 Delivery O2 Flow Rate FiO2 11/06/16 07:57 36.5 67 18 140/81 (100) 94 Room Air 11/06/16 02:46 Room Air 11/05/16 23:29 36.6 66 18 154/87 (109) 95 Room Air 11/05/16 21:10 Room Air 11/05/16 16:00 Room Air 11/05/16 15:19 36.2 65 16 91/53 (66) 98 Room Air
[2016-11-06 15:52] VITALS: BP 118/72; PULSE 64; TEMP 36.5; O2SAT 96
[2016-11-06] MEDS: CLONAZEPAM 0.5 MG TAB PO SCH (20:29)
[2016-11-06] MEDS: DONEPEZIL HCL 10 MG TAB PO SCH (20:30)
[2016-11-06] MEDS: SIMVASTATIN 10 MG TAB PO SCH (20:52)
[2016-11-06 22:39] VITALS: BP 126/71; PULSE 83; TEMP 36.3; O2SAT 96
[2016-11-07] MEDS ORDERED: HALOPERIDOL LACTATE 5 MG/ML 1 ML VIAL IV STA (02:52)
[2016-11-07] MEDS ORDERED: HALOPERIDOL LACTATE 5 MG/ML 1 ML VIAL ONE (02:56)
[2016-11-07 07:58] VITALS: BP 149/77; PULSE 59; TEMP 36.8; O2SAT 97
[2016-11-07] MEDS: ASPIRIN 81 MG ECTAB PO SCH (09:20)
[2016-11-07] MEDS: VENLAFAXINE HCL XR 75 MG CAPXR PO SCH (09:21)
[2016-11-07] MEDS: VENLAFAXINE HCL XR 150 MG CAPXR PO SCH (09:21)
[2016-11-07] MEDS: PANTOprazole SOD 40 MG TAB PO SCH (09:21)
[2016-11-07] MEDS: FINASTERIDE 5 MG TAB PO SCH (09:22)
[2016-11-07] MEDS: TAMSULOSIN HCL 0.4 MG CAP PO SCH (09:22)
[2016-11-07] MEDS: LISINOPRIL 2.5 MG TAB PO SCH (09:22)
[2016-11-07] MEDS: LORATADINE 10 MG TAB PO SCH (09:22)
[2016-11-07] MEDS: ENOXAPARIN 40 MG/0.4 ML SYR SQ SCH (09:23)
[2016-11-07] MEDS: CHOLECALCIFEROL 1000 INTER.UNIT TAB PO SCH (09:23)
[2016-11-07] MEDS: CARBIDOPA/LEVODOPA 25/100MG TAB PO SCH ×4 (09:24→18:34)
[2016-11-07] MEDS: BUDESONIDE AQ (RHINOCORT AQ) NASAL SPRAY 32 MCG NAE SCH (09:24)
[2016-11-07] MEDS: NUPLAZID PO SCH (09:26)
[2016-11-07 09:42] LABS: HEMATOCRIT 46.1 % (42-52); MEAN CELL VOLUME 94.1 fL (80-100); MEAN CORPUSCULAR HEMOGLOBIN 30.6 pg (25-34); MEAN CORPUSCULAR HGB CONC 32.5 g/dl (32-36); MEAN PLATELET VOLUME 10.2 fL (7.4-10.4); PLATELET COUNT 174 K/uL (130-400); WHITE BLOOD COUNT 8.51 K/uL (4.8-10.8)
[2016-11-07 10:25] LABS: CREATININE 0.95 mg/dl (0.60-1.40)
--- NOTE | 2016-11-07 15:41 | Progress Note ---
Internal Med Progress Note Date of Service: Nov 07, 2016. Provider Documentation: SUBJECTIVE: Seen and examined at bedside. Patient had an episode of agitation and aggression overnight. Complains of mild soreness of neck Family at bedside. Awaiting for placement OBJECTIVE: Vital Signs-as noted below Physical Exam: General Appearance:Moderately built and nourished, no apparent distress Head: normocephalic, Atraumatic Eyes: normal inspection, EOMI, PERRL Neck: supple, Trachea midline Respiratory/Chest: Normal breath sounds, CTA Cardiovascular: S1, S2, No murmur Abdomen/GI:Soft, Non tender, Bowel sounds present Extremities/Musculoskelatal:normal inspection, no edema Neurologic/Psych:grossly no focal neurological deficits +Resting tremor Skin: normal color, warm Lab data as noted below. 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 HTN: Stable continue lisinopril DVT Px: Lovenox Code Status: Full Code Disposition: Awaiting for placement Needs follow up with Neurology upon discharge Follow up with your Psychiatrist as outpatient Vital Signs: Date Time Temp Pulse Resp B/P (MAP) Pulse Ox O2 Delivery O2 Flow Rate FiO2 11/07/16 09:00 Room Air 11/07/16 07:58 36.8 59 18 149/77 (101) 97 Room Air 11/07/16 00:00 Room Air 11/06/16 22:39 36.3 83 20 126/71 (89) 96 Room Air 11/06/16 20:00 Room Air 11/06/16 16:00 Room Air 11/06/16 15:52 36.5 64 18 118/72 (87) 96 Lab Results: Results Past 24 Hours Test 11/07/16 09:13 11/07/16 09:16 Range/Units White Blood Count 8.51 4.8-10.8 K/uL Red Blood Count 4.90 4.7-6.1 M/uL Hemoglobin 15.0 14.0-18.0 g/dL Hematocrit 46.1 42-52 % Mean Corpuscular Volume 94.1 80-100 fL Mean Corpuscular Hemoglobin 30.6 25-34 pg Mean Corpuscular Hemoglobin Concent 32.5 32-36 g/dl RDW Standard Deviation 41.8 36.4-46.3 fL RDW Coefficient of Variation 12.3 11.5-14.5 % Platelet Count 174 130-400 K/uL Mean Platelet Volume 10.2 7.4-10.4 fL Creatinine 0.95 0.60-1.40 mg/dl Est Creatinine Clear Calc Drug Dose 80.6 ml/min Estimated GFR () 94.3 Estimated GFR (Non- 81.3
[2016-11-07 15:53] VITALS: BP 130/70; PULSE 60; TEMP 36.8; O2SAT 96
[2016-11-07] MEDS: SIMVASTATIN 10 MG TAB PO SCH (20:39)
[2016-11-07] MEDS: CLONAZEPAM 0.5 MG TAB PO SCH (20:39)
[2016-11-07] MEDS: DONEPEZIL HCL 10 MG TAB PO SCH (21:12)
[2016-11-07 23:50] VITALS: BP 121/69; PULSE 60; TEMP 36.6; O2SAT 96
[2016-11-08 07:28] VITALS: BP 164/83; PULSE 61; TEMP 36.7; O2SAT 98
[2016-11-08] MEDS: PANTOprazole SOD 40 MG TAB PO SCH (07:56)
[2016-11-08] MEDS: VENLAFAXINE HCL XR 75 MG CAPXR PO SCH (07:56)
[2016-11-08] MEDS: CARBIDOPA/LEVODOPA 25/100MG TAB PO SCH ×4 (07:56→18:26)
[2016-11-08] MEDS: CHOLECALCIFEROL 1000 INTER.UNIT TAB PO SCH (07:56)
[2016-11-08] MEDS: TAMSULOSIN HCL 0.4 MG CAP PO SCH (07:56)
[2016-11-08] MEDS: VENLAFAXINE HCL XR 150 MG CAPXR PO SCH (07:56)
[2016-11-08] MEDS: FINASTERIDE 5 MG TAB PO SCH (07:56)
[2016-11-08] MEDS: LISINOPRIL 2.5 MG TAB PO SCH (07:57)
[2016-11-08] MEDS: ENOXAPARIN 40 MG/0.4 ML SYR SQ SCH (07:57)
[2016-11-08] MEDS: ASPIRIN 81 MG ECTAB PO SCH (07:58)
[2016-11-08] MEDS: LORATADINE 10 MG TAB PO SCH (07:58)
[2016-11-08] MEDS: PIMAVANSERIN TARTRATE 17 MG PO SCH (07:59)
[2016-11-08] MEDS: BUDESONIDE AQ (RHINOCORT AQ) NASAL SPRAY 32 MCG NAE SCH (07:59)
--- NOTE | 2016-11-08 12:18 | Psychiatric Progress Notes ---
Progress Note Date of Service Nov 08, 2016. Interval History Mr. Tesfaye is a 70 yo male with Lewy Body dementia and Parkinson's Disease who is admitted to the hospitalist service for AMS and inability to be cared for at home. He and his live in [place] and he is a longstanding patient of geriatric psychiatrist Jhonny Monroy MD at [facility]. Chief Complaint Patient asleep and doesn't respond to attempts to wake him. Subjective Patient was seen & assessed, records reviewed, both hospital records and outpatient psychiatric records. He had one episode of agitation 2 nights ago, for which he received 2.5 mg of Haldol IV. Since then, he has been calm and cooperative with care, but is oriented only to self. Multiple referrals have been made for placement. When awake, he responds to questions, but is slowed and confused. He was initially seen by Dr. Levy on 11/04/2016, and she recommended continuing his home doses of clonazepam, buspirone, and venlafaxine XR. He was also seen by neurology, and is on donepezil and Sinemet. On my assessment, the patient is not able to participate in the interview, as he is sleeping and unarousable. His daughter is present at bedside and provides the history. She states that this morning when she arrived at the hospital, the patient told her that hospital staff are "stealing the children," there was a plot to attack him, and a knife hidden under something on his windowsill. She also stated that he has express delusions at home, at one point believing that his had other man living in their house. His is no longer able to care for him at home, and they continue to work on placement on a dementia unit. Mental Status Exam During interview pt is: other (somnolent and unable to participate in the interview) Appearance: appropriately dressed, appropriately groomed, other (sleeping comfortably in bed) Motor behavior is: no abnormal motor movements Speech: other (absent) Affect: constricted (to sleeping) Impression 70 yo male with Lewy Body dementia and Parkinson's who presents with decompensation following an inpatient rehab stay. He was not getting the correct psychotropic medications while there, but has since been placed back on home doses of venlafaxine XR, buspirone, and clonazepam. Plan (1) Depression with anxiety Continue home doses of venlafaxine XR, clonazepam, and buspirone per outpatient psychiatrist, Dr. Monroy's, recommendations. Dr. Monroy updated for coordination of care. (2) Altered mental status Increasing paranoia and delusions due to dementia. Can continue to use Haldol 2.5 mg as needed for agitation, which should improve once he is out of the hospital and get settled in his new environment. Treatment of psychotic symptoms in the context of Parkinson's disease is challenging, given the potential for drug drug interactions and directly opposing effects with his Sinemet, and multiple potential etiologies (medication side effect, dementia, or delirium). Mr. Tesfaye is psychiatrically stable for discharge to appropriate level of nursing care/rehab facility, and there is no indication for inpatient psychiatric admission. Visit Code E&M Code: 42943 Data Vital Signs Last 24 Hrs: Date Time Temp Pulse Resp B/P (MAP) Pulse Ox O2 Delivery O2 Flow Rate FiO2 11/08/16 08:00 Room Air 11/08/16 07:28 36.7 61 18 164/83 (110) 98 Room Air 11/08/16 00:00 Room Air 11/07/16 23:50 36.6 60 20 121/69 (86) 96 Room Air 11/07/16 16:00 Room Air 11/07/16 15:53 36.8 60 18 130/70 (90) 96 Room Air Meds Administered Last 24 Hrs: Meds Administered (Past 24Hrs) Medications (Trade) Dose Ordered Sig/Rosa Route Start Time Stop Time Status Last Admin Dose Admin Haloperidol Lactate (Haldol Inj) 5 mg STK-MED ONCE .ROUTE 11/07/16 02:56 11/07/16 02:57 DC 11/07/16 03:00 2.5 MG
[2016-11-08 15:50] VITALS: BP 96/61; PULSE 70; TEMP 36.1; O2SAT 97
[2016-11-08 16:15] VITALS: BP 103/69; TEMP 36.5
[2016-11-08 16:18] VITALS: BP_SYST 90; BP_SYST 94; BP_DIAS 58; BP_DIAS 63
--- NOTE | 2016-11-08 16:34 | Progress Note ---
Internal Med Progress Note Date of Service: Nov 08, 2016. Provider Documentation: SUBJECTIVE: Seen and examined at bedside. Doing well today. No new complaints. Family at bedside. Awaiting for placement OBJECTIVE: Vital Signs-as noted below Physical Exam: General Appearance:Moderately built and nourished, no apparent distress Head: normocephalic, Atraumatic Eyes: normal inspection, EOMI, PERRL Neck: supple, Trachea midline Respiratory/Chest: Normal breath sounds, CTA Cardiovascular: S1, S2, No murmur Abdomen/GI:Soft, Non tender, Bowel sounds present Extremities/Musculoskelatal:normal inspection, no edema Neurologic/Psych:grossly no focal neurological deficits +Resting tremor Skin: normal color, warm Lab data as noted below. 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 HTN: Stable continue lisinopril Plan to hold lisinopril in AM if BP relatively low DVT Px: Lovenox Code Status: Full Code Disposition: Awaiting for placement Needs follow up with Neurology upon discharge Follow up with your Psychiatrist as outpatient Vital Signs: Date Time Temp Pulse Resp B/P (MAP) Pulse Ox O2 Delivery O2 Flow Rate FiO2 11/08/16 16:18 90/58 (69) 11/08/16 16:18 94/63 (73) 11/08/16 16:15 36.5 103/69 (80) 11/08/16 15:50 36.1 70 18 96/61 (73) 97 Room Air 11/08/16 08:00 Room Air 11/08/16 07:28 36.7 61 18 164/83 (110) 98 Room Air 11/08/16 00:00 Room Air 11/07/16 23:50 36.6 60 20 121/69 (86) 96 Room Air
[2016-11-08 18:14] VITALS: BP 104/66; PULSE 75
[2016-11-08] MEDS: SIMVASTATIN 10 MG TAB PO SCH (20:18)
[2016-11-08] MEDS: DONEPEZIL HCL 10 MG TAB PO SCH (20:18)
[2016-11-08] MEDS: CLONAZEPAM 0.5 MG TAB PO SCH (20:20)
[2016-11-09] MEDS ORDERED: OLANZAPINE 10 MG/2.1 ML SDV IM STA (05:39)
[2016-11-09] MEDS ORDERED: LORAZEPAM 2 MG/ML 1 ML VIAL IM ONE (05:46)
[2016-11-09] MEDS ORDERED: LORAZEPAM 2 MG/ML 1 ML VIAL **EMERGENCY USE ONE (06:23)
[2016-11-09] MEDS: CARBIDOPA/LEVODOPA 25/100MG TAB PO SCH ×4 (07:00→18:47)
[2016-11-09] MEDS: PIMAVANSERIN TARTRATE 17 MG PO SCH (08:00)
[2016-11-09] MEDS: BUDESONIDE AQ (RHINOCORT AQ) NASAL SPRAY 32 MCG NAE SCH (08:00)
[2016-11-09] MEDS: PANTOprazole SOD 40 MG TAB PO SCH (12:12)
[2016-11-09] MEDS: VENLAFAXINE HCL XR 150 MG CAPXR PO SCH (12:12)
[2016-11-09] MEDS: VENLAFAXINE HCL XR 75 MG CAPXR PO SCH (12:12)
[2016-11-09] MEDS: TAMSULOSIN HCL 0.4 MG CAP PO SCH (12:12)
[2016-11-09] MEDS: LISINOPRIL 2.5 MG TAB PO SCH (12:13)
[2016-11-09] MEDS: FINASTERIDE 5 MG TAB PO SCH (12:13)
[2016-11-09] MEDS: ASPIRIN 81 MG ECTAB PO SCH (12:14)
[2016-11-09] MEDS: CHOLECALCIFEROL 1000 INTER.UNIT TAB PO SCH (12:14)
[2016-11-09] MEDS: ENOXAPARIN 40 MG/0.4 ML SYR SQ SCH (12:14)
[2016-11-09] MEDS: LORATADINE 10 MG TAB PO SCH (12:14)
[2016-11-09 15:02] VITALS: BP 157/83; PULSE 60; TEMP 36.5; O2SAT 94
[2016-11-09] MEDS ORDERED: HALOPERIDOL LACTATE 5 MG/ML 1 ML VIAL IM PRN (15:15)
--- NOTE | 2016-11-09 15:21 | Progress Note ---
Internal Med Progress Note Date of Service: Nov 09, 2016. Provider Documentation: SUBJECTIVE: Seen and examined at bedside. Drowsy this morning secondary to medications Patient was combative with staff overnight. Did not take his meds this morning. Family at bedside. OBJECTIVE: Vital Signs-as noted below Physical Exam: General Appearance:Moderately built and nourished, no apparent distress Head: normocephalic, Atraumatic Eyes: normal inspection, EOMI, PERRL Neck: supple, Trachea midline Respiratory/Chest: Normal breath sounds, CTA Cardiovascular: S1, S2, No murmur Abdomen/GI:Soft, Non tender, Bowel sounds present Extremities/Musculoskelatal:normal inspection, no edema Neurologic/Psych:grossly no focal neurological deficits +Resting tremor Skin: normal color, warm Lab data as noted below. 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 HTN: continue lisinopril Plan to hold lisinopril in if BP low DVT Px: Lovenox Code Status: Full Code Disposition: Awaiting for placement Needs follow up with Neurology upon discharge Follow up with your Psychiatrist as outpatient Vital Signs: Date Time Temp Pulse Resp B/P (MAP) Pulse Ox O2 Delivery O2 Flow Rate FiO2 11/09/16 15:02 36.5 60 18 157/83 (107) 94 Room Air 11/09/16 08:00 Room Air 11/09/16 00:00 Room Air 11/08/16 18:14 75 104/66 (79) 11/08/16 16:18 90/58 (69) 11/08/16 16:18 94/63 (73) 11/08/16 16:15 36.5 103/69 (80) 11/08/16 16:00 Room Air 11/08/16 15:50 36.1 70 18 96/61 (24) 97 Room Air
[2016-11-09] MEDS: SIMVASTATIN 10 MG TAB PO SCH (20:09)
[2016-11-09] MEDS: CLONAZEPAM 0.5 MG TAB PO SCH (20:09)
[2016-11-09] MEDS: DONEPEZIL HCL 10 MG TAB PO SCH (20:09)
[2016-11-09 23:25] VITALS: BP 128/72; PULSE 62; TEMP 36.9; O2SAT 94
[2016-11-10] MEDS: CARBIDOPA/LEVODOPA 25/100MG TAB PO SCH ×4 (06:24→18:47)
[2016-11-10 07:51] VITALS: BP 121/73; PULSE 65; TEMP 36.9; O2SAT 94
[2016-11-10] MEDS: PANTOprazole SOD 40 MG TAB PO SCH (08:01)
[2016-11-10] MEDS: BUDESONIDE AQ (RHINOCORT AQ) NASAL SPRAY 32 MCG NAE SCH (08:01)
[2016-11-10] MEDS: LORATADINE 10 MG TAB PO SCH (08:01)
[2016-11-10] MEDS: TAMSULOSIN HCL 0.4 MG CAP PO SCH (08:02)
[2016-11-10] MEDS: VENLAFAXINE HCL XR 150 MG CAPXR PO SCH (08:02)
[2016-11-10] MEDS: VENLAFAXINE HCL XR 75 MG CAPXR PO SCH (08:02)
[2016-11-10] MEDS: LISINOPRIL 2.5 MG TAB PO SCH (08:02)
[2016-11-10] MEDS: FINASTERIDE 5 MG TAB PO SCH (08:02)
[2016-11-10] MEDS: ASPIRIN 81 MG ECTAB PO SCH (08:03)
[2016-11-10] MEDS: PIMAVANSERIN TARTRATE 17 MG PO SCH (08:03)
[2016-11-10] MEDS: ENOXAPARIN 40 MG/0.4 ML SYR SQ SCH (08:05)
[2016-11-10] MEDS: CHOLECALCIFEROL 1000 INTER.UNIT TAB PO SCH (08:05)
[2016-11-10] MEDS ORDERED: QUETIAPINE FUMARATE 25 MG TAB PO PRN (15:00)
--- NOTE | 2016-11-10 15:04 | Psychiatric Progress Notes ---
Psychiatric Progress Note Date of Service Nov 10, 2016. Notes ID: Patient reviewed with liaison nurse. Previously seen by me for initial consultation. CC: at bedside, awaiting placement HPI: patient was quite sedated yesterday having received Haldol and Ativan prns evening prior. She feels he tolerated the low dose Haldol pretty well considering his baseline parkinsons. Daughter has apparently reported he gets paranoid at home and worries he may get aggressive with . ROS: patient denies [place], no delusions expressed MSE: alert, cooperative, flat/masked faces, same tremor, thoughts very concrete , denies SI, did not appear to be responding to internal stimuli. Imp: lewy body dementia with parkinsons and behavior disturbance Plan: Dr. Monroy recommends trial of low dose prn Seroquel over IM Haldol as needed if willing to take PO given less EPS and IM may need discontinued on discharge as going to acute rehab setting. supports and is aware of FDA warnings re: risks of .
--- NOTE | 2016-11-10 15:07 | Progress Note ---
Internal Med Progress Note Date of Service: Nov 10, 2016. Provider Documentation: SUBJECTIVE: Seen and examined at bedside. Doing well today No acute issues Family at bedside. Discussed with Psychiatry OBJECTIVE: Vital Signs-as noted below Physical Exam: General Appearance:Moderately built and nourished, no apparent distress Head: normocephalic, Atraumatic Eyes: normal inspection, EOMI, PERRL Neck: supple, Trachea midline Respiratory/Chest: Normal breath sounds, CTA Cardiovascular: S1, S2, No murmur Abdomen/GI:Soft, Non tender, Bowel sounds present Extremities/Musculoskelatal:normal inspection, no edema Neurologic/Psych:grossly no focal neurological deficits +Resting tremor Skin: normal color, warm Lab data as noted below. 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 HTN: continue lisinopril Plan to hold lisinopril in if BP low DVT Px: Lovenox Code Status: Full Code Disposition: Awaiting for placement Follow up with your Primary care on 11/16/16 at 10:45AM Follow up with Neurology Dr Guerra on Dec 18, 2016 at 12:45pm Follow up with your Psychiatrist in 2 weeks as advised Vital Signs: Date Time Temp Pulse Resp B/P (MAP) Pulse Ox O2 Delivery O2 Flow Rate FiO2 11/10/16 08:00 Room Air 11/10/16 07:51 36.9 65 18 121/73 (89) 94 11/10/16 00:00 Room Air 11/09/16 23:25 36.9 62 18 128/72 (90) 94 Room Air 11/09/16 16:00 Room Air
[2016-11-10] MEDS ORDERED: CLON0.5T3 PO (15:32)
[2016-11-10] MEDS ORDERED: SRQ25 PO (15:32)
[2016-11-10] MEDS ORDERED: BUSP1TAB46 PO (15:32)
--- NOTE | 2016-11-10 15:35 | Discharge Instructions ---
Discharge Instructions Date of Service Nov 10, 2016. Admission Reason for Admission: Altered Mental Status Discharge Discharge Diagnosis / Problem: lewy body dementia with parkinsons and behavior disturbance Discharge Goals Goal(s): Decrease discomfort, Improve function Activity Recommendations Activity Limitations: resume your previous activity Exercise/Sports Limitations: as tolerated . Instructions / Follow-Up Instructions / Follow-Up Follow up with your Primary care on 11/16/16 at 10:45AM Follow up with Neurology Dr Guerra on Dec 18, 2016 at 12:45pm Follow up with your Psychiatrist in 2 weeks as advised Current Hospital Diet Patient's current hospital diet: AHA Diet (Heart Healthy) Discharge Diet Recommended Diet: AHA Diet (Heart Healthy) Pending Studies Studies pending at discharge: no Laboratory Results Hemoglobin A1c Test 09/20/16 11:57 Range/Units Estimated Average Glucose 134 mg/dl Hemoglobin A1c 6.3 H 4.5-5.6 % Lipid Panel Test 09/21/16 06:55 Range/Units Triglycerides Level 132 0-150 mg/dl Cholesterol Level 109 0-200 mg/dl HDL Cholesterol 40 mg/dl Cholesterol/HDL Ratio 2.7 LDL Cholesterol, Calculated 43 mg/dl Medical Emergencies . Who to Call and When: Medical Emergencies: If at any time you feel your situation is an emergency, please call 911 immediately. . Non-Emergent Contact Non-Emergency issues call your: Primary Care Provider, Specialist (Psychiatrist ) Call Non-Emergent contact if: you have a fever, your pain is not controlled, your pain is worsening, your pain is unusual for you, you have any medication questions If your symptoms reoccur or worsen . . "Provider Documentation" section prepared by Juan Antonio Childs. . VTE Core Measure Inpt VTE Proph given/why not?: Enoxaparin (Lovenox)SQ
[2016-11-10 15:37] VITALS: BP 114/70; PULSE 60; TEMP 36.5; O2SAT 97
[2016-11-10 16:11] VITALS: BP 114/70; PULSE 60; TEMP 36.5; O2SAT 97
--- NOTE | 2016-11-10 16:53 | Discharge Summary ---
Discharge Summary Date of Service Nov 10, 2016. 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 Moderate mucosal thickening ethmoid sinuses CXR: Mild stable cardiomegaly. No acute process Consultations: Psychiatry, Neurology Pending Studies/Follow-Up: Follow up with your Primary care on 11/16/16 at 10:45AM Follow up with Neurology Dr Guerra on Dec 18, 2016 at 12:45pm Follow up with your Psychiatrist in 2 weeks as advised Medication Reconciliation New Medications: Quetiapine Fumarate (Quetiapine Fumarate) 25 Mg Tab 12.5 MG PO Q8 PRN for Anxiety/Agitation for 3 Days, #5 TAB Changed Medications: Buspirone Hcl (Buspirone Hcl) 7.5 Mg Tab 5 MG PO TID for 3 Days, #15 (Changed from: 7.5 MG) Clonazepam (Klonopin) 0.5 Mg Tab 0.25 MG PO HS for 3 Days, #2 TAB (Changed from: 0.5 MG) Continued Medications: Aspirin (Aspirin Ec) 81 Mg Tab 81 MG PO DAILY Budesonide (Nasal) (Rhinocort Allergy) 32 Mcg/Act Lisa 2 SPRAYS JOSE DAILY Carbidopa/Levodopa (Sinemet 25MG/100MG) Tab 2 TAB PO TID, TAB Carbidopa/Levodopa (Sinemet 25MG/100MG) Tab 1 TAB PO HS, TAB Cholecalciferol (Vitamin D3) 2,000 Unit Tab 1 TAB PO DAILY for 90 Days, #90 TAB 3 Refills Donepezil Hydrochloride (Aricept) 10 Mg Tab 20 MG PO HS, TAB Finasteride (Proscar) 5 Mg Tab 5 MG PO DAILY, TAB Lisinopril (Lisinopril) 2.5 Mg Tab 1 TAB PO DAILY, TAB Loratadine (Claritin) 10 Mg Tab 5 MG PO DAILY Omeprazole (Prilosec) 40 Mg Cap 40 MG PO DAILY, CAP Pimavanserin Tartrate (Nuplazid) 17 Mg Tab 2 TAB PO DAILY Simvastatin (Zocor) 10 Mg Tab 10 MG PO HS, TAB Tamsulosin Hcl (Flomax) 0.4 Mg Cap 0.4 MG PO DAILY, CAP Venlafaxine Hcl (Effexor Xr) 150 Mg Cap 1 CAP PO QAM, CAP Venlafaxine Hcl (Venlafaxine Extended Rel) 75 Mg Cap 75 MG PO DAILY, CAP Admission Information HPI (per Admitting provider): 70 yo M with Parkinson's dementia presents to the ER brought in by his because of physical aggression and defiance at home making him difficult to manage. He was here 1-2 months ago for AMS and falls and was sent to [facility] rehab facility for a month. His reports that his meds were being given incorrectly and there were issues in general going on-overall it was a poor experience so she took him home early. For a week, she states that he was doing well. However, over the past week he has demonstrated more defiance refusing to take his medications, spitting them out, and then he fell this morning after charging down the steps on his own. state it was an easy fall and he didn't get hurt. She also states that in the parking lot of the ER he was refusing to sit in the wheelchair to come in despite having agreed to come to the hospital. There have been no other symptoms of confusion, chest pain, cough, shortness of breath, difficulty urinating, fevers, chills, abdominal pain, nausea, vomiting, or diarrhea or constipation. He is being admitted as he is unfit for the home environment and will need to be re- evaluated for a different rehab facility. Physical Exam (per Admitting): GEN: WNWD, in no acute distress, alert and talkative, laughing and making jokes at one point. Oriented to self but not place or time. HEENT: NC/AT, PERRL, normal sclerae/conjunctivae, MMM, pharynx non-acute. Noted anterior head carriage. CARDIO: reg rate, S1/2 heard without m/g/r LUNGS: CTA bilaterally, no crackles, rales or wheezes, good diaphragmatic excursion ABD: soft, non-tender, non-distended, no rebound or guarding, +BS EXTREMITY: Noted rigidity in all extremities. RP and DP palpable 2+ bilat, no LE swelling or edema, extremities are warm and well-perfused NEURO: CN 2-12 grossl intact, sensation intact throughout, (reflexes) BR-could not elicit bilat, knee 2/4 bilat (limited exam 2/2 mental status) MUSC: 5/5 strength throughout, no focal deficits, again rigidity was noted SKIN: warm and dry Hospital Course Patient is a 70 yr male with severe dementia secondary to Parkinson's vs Lewy body presents for readmit after behavioral disturbance at home. 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 HTN: continue lisinopril Plan to hold lisinopril in if BP low DVT Px: Lovenox Code Status: Full Code Disposition: Awaiting for placement Follow up with your Primary care on 11/16/16 at 10:45AM Follow up with Neurology Dr Guerra on Dec 18, 2016 at 12:45pm Follow up with your Psychiatrist in 2 weeks as advised Total time spent on discharge = 37 minutes This includes examination of the patient, discharge planning, medication reconciliation, and communication with other providers. Discharge Instructions Discharge Instructions Date of Service Nov 10, 2016. Admission Reason for Admission: Altered Mental Status Discharge Discharge Diagnosis / Problem: lewy body dementia with parkinsons and behavior disturbance Discharge Goals Goal(s): Decrease discomfort, Improve function Activity Recommendations Activity Limitations: resume your previous activity Exercise/Sports Limitations: as tolerated . Instructions / Follow-Up Instructions / Follow-Up Follow up with your Primary care on 11/16/16 at 10:45AM Follow up with Neurology Dr Guerra on Dec 18, 2016 at 12:45pm Follow up with your Psychiatrist in 2 weeks as advised Current Hospital Diet Patient's current hospital diet: AHA Diet (Heart Healthy) Discharge Diet Recommended Diet: AHA Diet (Heart Healthy) Pending Studies Studies pending at discharge: no Laboratory Results Hemoglobin A1c Test 09/20/16 11:57 Range/Units Estimated Average Glucose 134 mg/dl Hemoglobin A1c 6.3 H 4.5-5.6 % Lipid Panel Test 09/21/16 06:55 Range/Units Triglycerides Level 132 0-150 mg/dl Cholesterol Level 109 0-200 mg/dl HDL Cholesterol 40 mg/dl Cholesterol/HDL Ratio 2.7 LDL Cholesterol, Calculated 43 mg/dl Medical Emergencies . Who to Call and When: Medical Emergencies: If at any time you feel your situation is an emergency, please call 911 immediately. . Non-Emergent Contact Non-Emergency issues call your: Primary Care Provider, Specialist (Psychiatrist ) Call Non-Emergent contact if: you have a fever, your pain is not controlled, your pain is worsening, your pain is unusual for you, you have any medication questions If your symptoms reoccur or worsen . . "Provider Documentation" section prepared by Juan Antonio Childs. . VTE Core Measure Inpt VTE Proph given/why not?: Enoxaparin (Lovenox)SQ <Electronically signed by Juan Antonio Childs MD> Signed: 11/10/16 1535 Signed: The status of this report is Signed * If report status is Draft, the document has not been finalized by the responsible provider.
== END 2016-11-10 19:12 | DRG 57 ==
LOC: C.EDB 19:09 → C.MS4W 23:23 → ENRESERV 11-04 00:03 → C.4E 11-09 16:53
PROVIDERS: ADMIT Hospitalist; ATTEND Internal Medicine
DX: G31.83 Neurocognitive disorder with Lewy bodies (principal); F02.81 Dementia in other diseases classified elsewhere, unspecified severity, with behavioral disturbance; G20 Parkinson's disease; N40.1 Benign prostatic hyperplasia with lower urinary tract symptoms; F41.8 Other specified anxiety disorders; E78.5 Hyperlipidemia, unspecified; K21.9 Gastro-esophageal reflux disease without esophagitis; I10 Essential (primary) hypertension; R73.03 Prediabetes; Z51.81 Encounter for therapeutic drug level monitoring; Z79.899 Other long term (current) drug therapy; Z79.82 Long term (current) use of aspirin; Z86.73 Personal history of transient ischemic attack (TIA), and cerebral infarction without residual deficits; Z91.81 History of falling; Z85.820 Personal history of malignant melanoma of skin; Z83.3 Family history of diabetes mellitus